=== PATIENT | male | born 1950 | race Caucasian/White ===

== ENCOUNTER 2017-02-17 08:29 | Day surgery (SDC) | payer MEDICARE, BC ==
[~2017-02-17 08:29] MED LIST: DIPHENHYDRAMINE HCL 50 MG/ML VIAL ONE; EPINEPHRINE INJ 1 MG/10 ML DISP.SYRIN ONE; FLUMAZENIL INJ 0.5 MG/5 ML VIAL IV ONE; GLUCAGON,HUMAN RECOMB 1 MG INJ ONE; NALOXONE HCL INJ/PF 0.4 MG/1 ML SDV ONE; ONDANSETRON HCL INJ/PF 4 MG/2 ML SDV ONE
[2017-02-17] MEDS: MIDAZOLAM 2 MG/2 ML INJ ONE ×2 (08:55→09:01)
[2017-02-17] MEDS: FENTANYL CITRATE INJ/PF 100 MCG/2 ML AMPUL ONE ×3 (08:57→09:03)
--- NOTE | 2017-02-17 09:21 | Operative Report ---
Operative Report DATE OF SURGERY: 02/17/17 Operative Report: The risks benefits and alternatives of the procedure explained to the patient in detail and informed consent is obtained. A GIF Olympus video scope was inserted into the patient's mouth and hypopharynx, the esophagus is identified intubated and insufflated ,the scope was then advanced through the esophagus stomach and duodenum, retroflexion maneuver is done, the esophagus stomach and first and second portions of the duodenum examined PREOPERATIVE DIAGNOSIS: Epigastric pain rule out peptic ulcer disease POSTOPERATIVE DIAGNOSIS: Hernandez's esophagus. Hiatal hernia. Gastritis status post biopsy. Duodenitis. Ablation of Hernandez's tissue OPERATION: EGD with ablation. EGD with biopsy SURGEON: CARMINA CHEN ANESTHESIA: Moderate Sedation - 4 mg of Versed, 100 mcg of fentanyl. Conscious sedation monitoring time 30 minutes. TISSUE REMOVED OR ALTERED: Gastric specimen obtained to rule out Helicobacter pylori COMPLICATIONS: None. ESTIMATED BLOOD LOSS: None. INTRAOPERATIVE FINDINGS: As noted above. PROCEDURE: Patient tolerated the procedure well. No immediate postprocedure complications are noted. Patient discharged in good condition. Discharge date February 17, 2017. Discharge diet: Regular. Discharge activity: Regular. 2-3 week follow-up to discuss findings. We will wait on biopsies. Patient is instructed to call the office or proceed to the emergency room should there be any further problems or questions.
[2017-02-17 10:32] VITALS: BP 127/76
== END 2017-02-17 10:15 | disposition home or self-care (01) ==
LOC: END 08:29
PROVIDERS: ATTEND Internal Medicine Gastroenterology
PROC: 0DB68ZX Excision of Stomach, Via Natural or Artificial Opening Endoscopic, Diagnostic (ICD-10-PCS; principal; 2017-02-17 09:00)
PROC: 0DB68ZX Excision of Stomach, Via Natural or Artificial Opening Endoscopic, Diagnostic (ICD-10-PCS; 2017-02-17 09:00)
DX: K44.9 Diaphragmatic hernia without obstruction or gangrene (principal); K29.50 Unspecified chronic gastritis without bleeding; K22.70 Barrett's esophagus without dysplasia; K29.80 Duodenitis without bleeding; I10 Essential (primary) hypertension; R73.03 Prediabetes; F17.210 Nicotine dependence, cigarettes, uncomplicated; Z79.899 Other long term (current) drug therapy; Z85.038 Personal history of other malignant neoplasm of large intestine; Z85.46 Personal history of malignant neoplasm of prostate; Z90.49 Acquired absence of other specified parts of digestive tract
CPT/HCPCS: 43270; 43239; 88305 ×2; J2250; J3010; J0171; J1200; J1610; J2310; J2405; J3490

== ENCOUNTER 2017-08-08 09:41 | Inpatient (IN) | payer MEDICARE, BC ==
[2017-08-08] MEDS ORDERED: NORMAL SALINE 1000 ML 1,000 ML IV ONE (09:59)
[2017-08-08 10:20] LABS: ABSOLUTE BASOPHILS # (AUTO) 0.1 10^3/uL (0.0-0.2); ABSOLUTE MONOCYTES (AUTO) 0.9 10^3/uL (0.1-1.4); ABSOLUTE NEUT (AUTO) 6.6 10^3/uL (1.7-8.2); BASOPHILS % (AUTO) 0.8 % (0-2); EOSINOPHILS % (AUTO) 0.4 % (0-6); LYMPHOCYTES % (AUTO) 11.6 % (13-45); MEAN CORPUSCULAR HEMOGLOBIN 27.7 pg (27.0-33.4); MEAN CORPUSCULAR HGB CONC 33.2 g/dL (32.0-36.0); MEAN CORPUSCULAR VOLUME 83 fl (80-97); MONOCYTES % (AUTO) 10.5 % (3-13); RED BLOOD COUNT 5.04 10^6/uL (4.35-5.55); RED CELL DISTRIBUTION WIDTH 14.7 % (11.5-14.0); SEGMENTED NEUTROPHILS % (AUTO) 76.7 % (42-78); WHITE BLOOD COUNT 8.6 10^3/uL (4.0-10.5)
[2017-08-08] MEDS ORDERED: ALBUTEROL SULFATE 0.083% NEB 2.5 MG/3 ML AMPUL NEB ONE (10:22)
[2017-08-08 10:24] LABS: VENOUS BLOOD BASE EXCESS 0.6 mmol/L; VENOUS BLOOD HCO3 24.6 mmol/L (20-32); VENOUS BLOOD PCO2 37.5 mmHg (35-63); VENOUS BLOOD PH 7.43 (7.30-7.42)
[2017-08-08 10:39] LABS: ALANINE AMINOTRANSFERASE 24 U/L (21-72); ALBUMIN 2.8 g/dL (3.5-5.0); ALKALINE PHOSPHATASE 102 U/L (38-126); ANION GAP 11 (5-19); ASPARTATE AMINO TRANSFERASE 16 U/L (17-59); BILIRUBIN,DIRECT 0.5 mg/dL (0.0-0.4); BILIRUBIN,TOTAL 0.8 mg/dL (0.2-1.3); BLOOD UREA NITROGEN 17 mg/dL (7-20); CALCIUM 8.8 mg/dL (8.4-10.2); CARBON DIOXIDE 24 mmol/L (22-30); CHLORIDE 104 mmol/L (98-107); CREATINE KINASE < 20 U/L (55-170); GLUCOSE 100 mg/dL (75-110); LIPASE 61.1 U/L (23-300); POTASSIUM 4.4 mmol/L (3.6-5.0); SODIUM 138.9 mmol/L (137-145); TOTAL PROTEIN 5.6 g/dL (6.3-8.2)
[2017-08-08 10:50] LABS: CREATINE KINASE MB 0.75 ng/mL (<4.55); TROPONIN I 0.016 ng/mL
--- NOTE | 2017-08-08 10:58 | RADIOLOGY REPORT (SQ) ---
EXAM DESCRIPTION: CHEST PA/LAT COMPLETED DATE/TIME: 08/08/2017 10:47 am REASON FOR STUDY: sob COMPARISON: None. EXAM PARAMETERS: NUMBER OF VIEWS: two views TECHNIQUE: Digital Frontal and Lateral radiographic views of the chest acquired. RADIATION DOSE: NA LIMITATIONS: none FINDINGS: LUNGS AND PLEURA: There is diffuse right lung airspace disease, partial collapse of the ri ght middle lobe, and trace right pleural effusion. Findings are worrisome for pneumonia. Endobronch ial lesion/hilar mass could be present, and postobstructive pneumonia may be present. Consider CT ch est with IV contrast for followup. Left lung well inflated and clear. No left pleural effusion. No right or left pneumothorax. MEDIASTINUM AND HILAR STRUCTURES: Consolidation in the right lung adjacent to the right hilum. Right hilar adenopathy or mass could be present. Left hilum unremarkable. HEART AND VASCULAR STRUCTURES: Heart normal size. No evidence for failure. BONES: No acute findings. HARDWARE: None in the chest. OTHER: No other significant finding. IMPRESSION: Right-sided diffuse airspace disease worrisome for pneumonia. Partial collapse of the r ight middle lobe. Trace right pleural effusion. Right hilar or endobronchial mass could not be excluded by plain film. Consider CT scan of the chest with IV contrast for followup. TECHNICAL DOCUMENTATION: JOB ID: [id number] [employer]- All Rights Reserved
[2017-08-08] MEDS ORDERED: LEVOFLOXACIN 750 MG/D5W RTU 750 MG/150 ML RTUPB IV ONE (11:18)
--- NOTE | 2017-08-08 11:43 | ER Document Report ---
ED General - General Chief Complaint: Shortness Of Breath Stated Complaint: SHORTNESS OF BREATH Time Seen by Provider: 08/08/17 09:50 TRAVEL OUTSIDE OF THE [place] IN LAST 30 DAYS: No - HPI Patient complains to provider of: Shortness of breath Notes: Patient coming in for local urgent care for shortness of breath. Patient states has significant history of smoking. States short of breath for the last 2 days. Patient denies any fevers chills night sweats. Patient denies any recent travel or antibiotics. Patient states he was given a dose of IM antibiotics at the local urgent care and brought to the ER. Patient states no history of her oxygen patient was found to be hypoxic upon EMS arrival with SPO2 in the lower 80s. Patient currently is on 4 L. Patient resting comfortably in no signs of any distress after my evaluation. - Related Data Allergies/Adverse Reactions: Penicillins Allergy (Unknown, Verified 08/08/17 09:45) unknown tamsulosin [From Flomax] Allergy (Unknown, Verified 08/08/17 09:45) UNKNOWN Home Medications: Current Home Medications Empagliflozin [Jardiance] 10 mg PO DAILY 08/08/17 [History] Lisinopril [Zestril] 30 mg PO DAILY 08/08/17 [History] Omeprazole 40 mg PO DAILY 08/08/17 [History] Silodosin [Rapaflo] 8 mg PO DAILY 08/08/17 [History] Past Medical History - Social History Smoking Status: Former Smoker Chew tobacco use (# tins/day): No Frequency of alcohol use: None Drug Abuse: None Family History: Reviewed & Not Pertinent Patient has suicidal ideation: No Patient has homicidal ideation: No - Past Medical History Cardiac Medical History: Reports: Hx Hypertension Denies: Hx Atrial Fibrillation, Hx Congestive Heart Failure, Hx Coronary Artery Disease, Hx Heart Attack, Hx Hypercholesterolemia, Hx Peripheral Vascular Disease, Hx Pulmonary Embolism, Hx Heart Murmur Pulmonary Medical History: Reports: Hx COPD Denies: Hx Asthma, Hx Bronchitis, Hx Pneumonia, Hx Respiratory Failure, Hx Sleep Apnea, Hx Tuberculosis Neurological Medical History: Denies: Hx Cerebrovascular Accident, Hx Seizures Endocrine Medical History: Reports: Hx Diabetes Mellitus Type 2. Denies: Hx Graves' Disease, Hx Hyperthyroidism, Hx Hypothyroidism Renal/ Medical History: Denies: Hx Benign Prostatic Hyperplasia, Hx End Stage Renal Disease, Hx Kidney Stones, Hx Peritoneal Dialysis Malignancy Medical History: Denies Hx Leukemia, Denies Hx Lung Cancer GI Medical History: Reports: Hx Gastroesophageal Reflux Disease, Hx Hiatal Hernia. Denies: Hx Crohn's Disease, Hx Irritable Bowel, Hx Liver Failure, Hx Pancreatitis, Hx Ulcer Musculoskeltal Medical History: Denies Hx Arthritis, Denies Hx Fibromyalgia, Denies Hx Multiple Sclerosis, Denies Hx Muscular Dystrophy Psychiatric Medical History: Denies: Hx Bipolar Disorder, Hx Dementia, Hx Depression, Hx Post Traumatic Stress Disorder, Hx Schizophrenia Traumatic Medical History: Denies: Hx Fractures Infectious Medical History: Denies: Hx HIV Past Surgical History: Denies: Hx Appendectomy, Hx Bowel Surgery, Hx Cholecystectomy, Hx Colostomy, Hx Coronary Artery Bypass Graft, Hx Gastric Bypass Surgery, Hx Herniorrhaphy, Hx Pacemaker, Hx Tonsillectomy - Immunizations Hx Diphtheria, Pertussis, Tetanus Vaccination: No Review of Systems - Review of Systems Constitutional: No symptoms reported EENT: No symptoms reported Cardiovascular: No symptoms reported Respiratory: Cough, Short of breath, Wheezing Gastrointestinal: No symptoms reported Genitourinary: No symptoms reported Male Genitourinary: No symptoms reported Musculoskeletal: No symptoms reported Skin: No symptoms reported Hematologic/Lymphatic: No symptoms reported Neurological/Psychological: No symptoms reported -: Yes All other systems reviewed and negative Physical Exam - Vital signs Vitals: Resp Pulse Ox 20 90 L 08/08/17 09:49 08/08/17 09:49 Interpretation: Hypoxic - General General appearance: Appears well, Alert - HEENT Head: Normocephalic, Atraumatic Eyes: Normal Pupils: PERRL - Respiratory Respiratory status: No respiratory distress Chest status: Nontender Breath sounds: Rhonchi, Wheezing Chest palpation: Normal - Cardiovascular Rhythm: Regular Heart sounds: Normal auscultation Murmur: No - Abdominal Inspection: Normal Distension: No distension Bowel sounds: Normal Tenderness: Nontender Organomegaly: No organomegaly - Back Back: Normal, Nontender - Extremities General upper extremity: Normal inspection, Nontender, Normal color, Normal ROM , Normal temperature General lower extremity: Normal inspection, Nontender, Normal color, Normal ROM , Normal temperature, Normal weight bearing. No: Kwan's sign - Neurological Neuro grossly intact: Yes Cognition: Normal Orientation: AAOx4 Charlee Coma Scale Eye Opening: Spontaneous [place] Coma Scale Verbal: Oriented Charlee Coma Scale Motor: Obeys Commands Charlee Coma Scale Total: 15 Speech: Normal Motor strength normal: LUE, RUE, LLE, RLE Sensory: Normal - Psychological Associated symptoms: Normal affect, Normal mood - Skin Skin Temperature: Warm Skin Moisture: Dry Skin Color: Normal Course - Re-evaluation Re-evalutation: 08/08/17 17:03 Patient with significant finding on chest x-ray concerning for pneumonia and possible metastatic disease. Patient was started on antibiotics. Discussed with the hospitalist agrees with a CTA at this time. Patient otherwise remained stable. I did review the CT results with the hospitalist patient tolerated and taken to the floor upon CT results released - Vital Signs Vital signs: Temp Pulse Resp BP Pulse Ox 98.2 F 95 18 153/78 H 92 08/08/17 13:44 08/08/17 16:34 08/08/17 16:34 08/08/17 13:44 08/08/17 16:34 - Laboratory Result Diagrams: 08/08/17 10:00 08/08/17 10:00 Laboratory results interpreted by me: 08/08/17 08/08/17 08/08/17 10:00 10:00 10:00 RDW 14.7 H Lymphocytes % 11.6 L VBG pH 7.43 H Direct Bilirubin 0.5 H AST 16 L Creatine Kinase < 20 L Total Protein 5.6 L Albumin 2.8 L Discharge - Discharge Clinical Impression: possible lung mass, Hypoxia, Smoking Pneumonia Qualifiers: Pneumonia type: due to unspecified organism Laterality: right Lung location: unspecified part of lung Qualified Code(s): J18.9 - Pneumonia, unspecified organism Condition: Good Disposition: ADMITTED INPATIENT Admitting Provider: Hospitalist - [facility] Admitted: [facility]
[2017-08-08] MEDS ORDERED: ALBUTEROL SULFATE 0.083% NEB 2.5 MG/3 ML AMPUL NEB PRN (12:34)
--- NOTE | 2017-08-08 13:00 | RADIOLOGY REPORT (SQ) ---
EXAM DESCRIPTION: CTA CHEST COMPLETED DATE/TIME: 08/08/2017 12:41 pm REASON FOR STUDY: sob f/u cxr tachy hypoxia COMPARISON: Two-view chest 08/08/2017 TECHNIQUE: CT scan of the chest performed using helical scanning technique with dynamic intravenous contrast injection. Images reviewed with lung, soft tissue and bone windows. Reconstructed coronal and sagittal MPR images reviewed. Additional 3 dimensional post-processing performed to develop Maximal Intensity Projection images (PR P). All images stored on PACS. All CT scanners at this facility use dose modulation, iterative reconstruction, and/or weight based d osing when appropriate to reduce radiation dose to as low as reasonably achievable (ALARA). [facility]: Dose Right [facility]: CareDose [facility]: Dose Right [facility]: Teradose 4D [facility]: MetaPack CONTRAST TYPE AND DOSE: 61 mL Isovue 370- low osmolar. Contrast bolus optimized for the pulmonary arteries. Not diagnostic for the aorta. RENAL FUNCTION: Creatinine 0.9 RADIATION DOSE: 22 mGy . LIMITATIONS: None. FINDINGS: LUNGS AND PLEURA: The right middle lobe bronchus is occluded on axial image 35, with volum e loss and consolidation throughout the right middle lobe. The right upper lobe airways are narrowed but still patent best shown on axial images 51-59. Throughout the right upper lobe and right lower lobe, there is interstitial thickening, with thickene d interlobular septa, and thick bronchial nunez, worrisome for lymphangitic tumor. Moderate right-sided pleural effusion. No acute left-sided lung parenchymal infiltrates or pleural fluid. Moderate changes of obstructive l giorgio disease at the left lung apex. No right or left pneumothorax AORTA AND GREAT VESSELS: No aneurysm. Contrast bolus not optimized for the aorta. HEART: No pericardial effusion. No significant coronary artery calcifications. PULMONARY ARTERIES: No emboli visualized in the main pulmonary arteries or the segmental branches. HILAR AND MEDIASTINAL STRUCTURES: Mediastinal adenopathy is present as follows: Precarinal 2.9 x 1.7 cm lymph node axial image 50 Left hilar 2.5 x 1.8 cm lymph node axial image 61 Left hilar 1.9 x 1.5 cm lymph node axial image 61 Left lower hilar 1.3 x 1.1 cm lymph node axial image 79 Posterior mediastinal lymph node along the tracheoesophageal groove, 1.4 x 1.4 cm axial image 100 HARDWARE: None in the chest. UPPER ABDOMEN: Just below the hemidiaphragm, a 2.5 x 1.6 cm celiac lymph node is present on axial teresa ge 111 THYROID AND OTHER SOFT TISSUES: No masses. No adenopathy. BONES: No acute or significant finding. 3D MIPS: Confirm above findings. OTHER: No other significant finding. IMPRESSION: Findings worrisome for lung cancer with postobstructive pneumonia in the right middle lo be, lymphangitis spread of tumor along the right hilum, and malignant mediastinal and upper abdominal adenopathy No CT angio evidence of acute pulmonary emboli or thoracic aortic dissection. COMMENT: Quality ID # [id number]: Final reports with documentation of one or more dose reduction techniques (e.g., Automated exposure control, adjustment of the mA and/or kV according to patient size, use of iterative reconstruction technique) TECHNICAL DOCUMENTATION: JOB ID: [id number] [employer]- All Rights Reserved
[2017-08-08 17:37] LABS: PROTHROMBIN TIME 15.3 SEC (11.4-15.4)
[2017-08-08 17:38] LABS: PARTIAL THROMBOPLASTIN TIME 32.2 SEC (23.5-35.8)
[2017-08-08 17:39] LABS: TOTAL PROTEIN 5.4 g/dL (6.3-8.2)
[2017-08-08] MEDS: LANSOPRAZOLE 30 MG TAB.RAP.DR PO SCH (18:48)
--- NOTE | 2017-08-08 19:18 | PDOC H&P ---
History of Present Illness Admission Date/PCP: 08/08/17 11:56 JULITO MCNEILL MD Patient complains of: Cough History of Present Illness: PAULINE SMITH is a 67 year old male presenting to the ED with a 3 week history of cough. Patient sates that the it is productive of clear sputum. 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 Patient states that he would take a break and then get back to what he was doing. Patients states that he has been smoking for many years, greater than 40, but has recently quite. Patient states he has not been eating well because food does taste good anymore. Patient states he lost about 10 labs. Patient also reports necrotic wound on his left thigh and back for which he is being seen at the wound clinic. It was suggest that patient have an autoimmune work up for this wounds. In the ED patient was found to be hypoxic in the 80s. Chest XR concerning for right sided pneumonia. CT scan chest was even moreso concerning findings worrisome for lung cancer and postobstructive pneumonia in the right middle lobe , lumphagitic spread of tumor along the right hilum, and malignant mediastinal and upper abdominal adenopathy. There is also bilateral nodularity and enlargement of the adrenal glands worrisome for metastatic disease. Past Medical History Cardiac Medical History: Reports: Hypertension Denies: Atrial Fibrillation, Congestive Heart Failure, Coronary Artery Disease, Myocardial Infarction, Hyperlipidema, Peripheral Vascular Disease, Pulmonary Embolism, Heart Murmur Pulmonary Medical History: Reports: Chronic Obstructive Pulmonary Disease (COPD) Denies: Asthma, Bronchitis, Pneumonia, Respiratory Failure, Sleep Apnea, Tuberculosis Neurological Medical History: Denies: Seizures Endocrine Medical History: Reports: Diabetes Mellitus Type 2 Denies: Hyperthyroidism, Hypothyroidism Renal/ Medical History: Denies: End Stage Renal Disease Malignancy Medical History: Reports: Other - 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 Denies: Breast Cancer, Cervical Cancer, Leukemia, Lung Cancer, Ovarian Cancer GI Medical History: Reports: Gastroesophageal Reflux Disease, Hiatal Hernia, Other Denies: Crohn's Disease Musculoskeltal Medical History: Denies: Arthritis, Fibromyalgia Psychiatric Medical History: Denies: Bipolar Disorder, Dementia, Depression, Post Traumatic Stress Disorder Hematology: Denies: Anemia, Hemophilia, Sickle Cell Disease Infectious Medical History: Denies: HIV Past Surgical History Past Surgical History: Reports: Other - SBO in 2011 positive for maliganancy Denies: Appendectomy, Cholecystectomy, Colostomy, Coronary Artery Bypass Graft, Gastric Bypass Surgery, Herniorrhaphy, Pacemaker, Tonsillectomy Social History Smoking Status: Former Smoker Cigarettes Packs Per Day: 1 Number of Years Smokin Last Time Smoked: last week Frequency of Alcohol Use: Occasional Hx Recreational Drug Use: No Drugs: None Hx Prescription Drug Abuse: Yes - HCTZ Family History Family History: Other - Father lymphoma Parental Family History Reviewed: Yes Children Family History Reviewed: No Sibling(s) Family History Reviewed.: No Medication/Allergy Home Medications: Empagliflozin [Jardiance] 10 mg PO DAILY 08/08/17 Lisinopril [Zestril] 30 mg PO DAILY 08/08/17 Multivit-Min/FA/Lycopen/Lutein [Centrum Silver Men Tablet] 1 each PO DAILY 08/08 Omeprazole 40 mg PO DAILY 08/08/17 Silodosin [Rapaflo] 8 mg PO DAILY 08/08/17 Allergies/Adverse Reactions: Penicillins Allergy (Unknown, Verified 08/08/17 09:45) unknown tamsulosin [From Flomax] Allergy (Unknown, Verified 08/08/17 09:45) UNKNOWN Physical Exam Vital Signs: Temp Pulse Resp BP Pulse Ox 98.2 F 95 21 H 142/69 H 94 08/08/17 16:44 08/08/17 16:44 08/08/17 16:44 08/08/17 16:44 08/08/17 16:44 Intake & Output 08/07/17 08/08/17 08/09/17 06:59 06:59 06:59 Intake Total 720 Balance 720 Weight 149 kg General appearance: PRESENT: no acute distress, well-developed, well-nourished Head exam: PRESENT: normocephalic Eye exam: PRESENT: EOMI. ABSENT: scleral icterus Ear exam: PRESENT: normal external ear exam Mouth exam: PRESENT: moist Neck exam: ABSENT: carotid bruit, JVD, lymphadenopathy, thyromegaly Respiratory exam: PRESENT: other - no breathe sound at right lung base. ABSENT : rales, rhonchi, wheezes Cardiovascular exam: PRESENT: RRR. ABSENT: diastolic murmur, rubs, systolic murmur Pulses: PRESENT: normal dorsalis pedis pul Vascular exam: PRESENT: normal capillary refill GI/Abdominal exam: PRESENT: normal bowel sounds, soft. ABSENT: distended, guarding, mass, organolmegaly, rebound, tenderness Rectal exam: PRESENT: deferred Extremities exam: PRESENT: full ROM. ABSENT: calf tenderness, clubbing, pedal edema Neurological exam: PRESENT: alert, awake, oriented to person, oriented to place , oriented to time, oriented to situation, CN II-XII grossly intact. ABSENT: motor sensory deficit Psychiatric exam: PRESENT: appropriate affect, normal mood. ABSENT: homicidal ideation, suicidal ideation Skin exam: PRESENT: dry, intact, warm, other - wound on back and left thigh. ABSENT: cyanosis, rash Results Laboratory Results: 08/08/17 17:07 08/08/17 17:07 Glucose 162 H Total Protein 5.4 L Impressions: Chest X-Ray 08/08/17 09:59 IMPRESSION: Right-sided diffuse airspace disease worrisome for pneumonia. Partial collapse of the right middle lobe. Trace right pleural effusion. Right hilar or endobronchial mass could not be excluded by plain film. Consider CT scan of the chest with IV contrast for followup. Chest/Abdomen CTA 08/08/17 11:41 IMPRESSION: Findings worrisome for lung cancer with postobstructive pneumonia in the right middle lobe, lymphangitis spread of tumor along the right hilum, and malignant mediastinal and upper abdominal adenopathy No CT angio evidence of acute pulmonary emboli or thoracic aortic dissection. Assessment & Plan - Diagnosis (1) Pneumonia Qualifiers: Pneumonia type: due to unspecified organism Laterality: right Lung location: unspecified part of lung Qualified Code(s): J18.9 - Pneumonia, unspecified organism Plan: Post obstructive do to possible lung mass. Patient on levaquin. (2) Hypertension Qualifiers: Hypertension type: essential hypertension Qualified Code(s): I10 - Essential (primary) hypertension Is this a current diagnosis for this admission?: Yes Plan: Conitnue home medications. Currently stable. (3) Hypoxia Is this a current diagnosis for this admission?: Yes Plan: Possible due to right lung pneumonia and other etiology affecting the lungs. Continue supplemental oxygen. Patient may need to be discharged home on oxygen. (4) Smoking Plan: Patient recently quite. (5) Abnormal CT scan, chest Plan: CT scan finding concerning for metastatic lung disease. Mass is not amenable to CT guided biopsy. Discussed with Dr. Myers who is attempting to arrange for a bronchoscopy and biopsy. Discussed with Dr. Peralta who recommend thoracentesis with cytology if we are not able to get bronch and arrange for a bronch as an outpatient instead. Coags ordered along with thoracentesis in the am. SCD for DVT prophylaxis. - Time Time Spent: 30 to 50 Minutes Anticipated discharge: Home - Inpatient Certification Medical Necessity: Need for Surgery
--- NOTE | 2017-08-08 21:11 | EKG REPORT ---
SEVERITY:- ABNORMAL ECG - SINUS TACHYCARDIA PROBABLE LEFT ATRIAL ABNORMALITY CONSIDER RIGHT VENTRICULAR HYPERTROPHY BORDERLINE PROLONGED QT INTERVAL : Confirmed by: Winsome Bey MD 08-Aug-2017 21:10:03
[2017-08-09] MEDS: LANSOPRAZOLE 30 MG TAB.RAP.DR PO SCH ×2 (05:16→16:36)
--- NOTE | 2017-08-09 08:37 | PDOC CONSULTATION ---
Consultation Consult Date: 08/09/17 Attending physician:: JENNA NOGUEIRA Consult reason:: Newly noted right lung lesion, pleural effusion, mediastinal adenopathy concern of lung cancer History of Present Illness Admission Date/PCP: 08/08/17 11:56 JULITO MCNEILL MD Patient complains of: Shortness of breath, weakness, weight loss History of Present Illness: 67-year-old male with known heavy smoking history greater than 40 pack history of tobacco, presents with increasing shortness of breath, it has been increasing over the last 3-6 months but acutely worsened over the last 1-2 weeks , ultimately he presented to his PCP who noted his O2 sat at room air was only 84% and sent him to the ED, there in the ED he had CTA of the chest, this did not show any PE but it did indicate a right hilar mass with a large right pleural effusion, mediastinal adenopathy, and concern of adrenal lesions as well. Of note he has had about a 5-10 pound weight loss over the last 1-2 months. He is not having any hemoptysis. He is not having any pain anywhere. Past Medical History Cardiac Medical History: Reports: Hypertension Denies: Atrial Fibrillation, Congestive Heart Failure, Coronary Artery Disease, Myocardial Infarction, Hyperlipidema, Peripheral Vascular Disease, Pulmonary Embolism, Heart Murmur Pulmonary Medical History: Reports: Chronic Obstructive Pulmonary Disease (COPD) Denies: Asthma, Bronchitis, Pneumonia, Respiratory Failure, Sleep Apnea, Tuberculosis Neurological Medical History: Denies: Seizures Endocrine Medical History: Reports: Diabetes Mellitus Type 2 Denies: Hyperthyroidism, Hypothyroidism Renal/ Medical History: Denies: End Stage Renal Disease Malignancy Medical History: Reports: Other - prostate cancer 2012 treated with radioative seeds in [place] Denies: Breast Cancer, Cervical Cancer, Leukemia, Lung Cancer, Ovarian Cancer GI Medical History: Reports: Gastroesophageal Reflux Disease, Hiatal Hernia, Other Denies: Crohn's Disease Musculoskeltal Medical History: Denies: Arthritis, Fibromyalgia Psychiatric Medical History: Denies: Bipolar Disorder, Dementia, Depression, Post Traumatic Stress Disorder Hematology: Denies: Anemia, Hemophilia, Sickle Cell Disease Infectious Medical History: Denies: HIV Past Surgical History Past Surgical History: Reports: Other - Colectomy because of large polyps, 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 Denies: Appendectomy, Cholecystectomy, Colostomy, Coronary Artery Bypass Graft, Gastric Bypass Surgery, Herniorrhaphy, Pacemaker, Tonsillectomy Social History Information Source: Patient Smoking Status: Former Smoker Cigarettes Packs Per Day: 1 Number of Years Smokin Last Time Smoked: last week Frequency of Alcohol Use: Occasional Hx Recreational Drug Use: No Drugs: None Hx Prescription Drug Abuse: Yes - HCTZ - Advance Directive Resuscitation Status: Full Code Family History Family History: Other - Father lymphoma Parental Family History Reviewed: Yes Children Family History Reviewed: Yes Sibling(s) Family History Reviewed.: Yes Medication/Allergy Home Medications: Empagliflozin [Jardiance] 10 mg PO DAILY 08/08/17 Lisinopril [Zestril] 30 mg PO DAILY 08/08/17 Multivit-Min/FA/Lycopen/Lutein [Centrum Silver Men Tablet] 1 each PO DAILY 08/08 Omeprazole 40 mg PO DAILY 08/08/17 Silodosin [Rapaflo] 8 mg PO DAILY 08/08/17 Allergies/Adverse Reactions: Penicillins Allergy (Unknown, Verified 08/08/17 09:45) unknown tamsulosin [From Flomax] Allergy (Unknown, Verified 08/08/17 09:45) UNKNOWN Review of Systems Constitutional: ABSENT: chills, fever(s), headache(s), weight gain, weight loss Eyes: ABSENT: visual disturbances Ears: ABSENT: hearing changes Cardiovascular: ABSENT: chest pain, dyspnea on exertion, edema, orthropnea, palpitations Respiratory: ABSENT: cough, hemoptysis Gastrointestinal: ABSENT: abdominal pain, constipation, diarrhea, hematemesis, hematochezia, nausea, vomiting Genitourinary: ABSENT: dysuria, hematuria Musculoskeletal: ABSENT: joint swelling Integumentary: ABSENT: rash, wounds Neurological: ABSENT: abnormal gait, abnormal speech, confusion, dizziness, focal weakness, syncope Psychiatric: ABSENT: anxiety, depression, homidical ideation, suicidal ideation Endocrine: ABSENT: cold intolerance, heat intolerance, polydipsia, polyuria Hematologic/Lymphatic: ABSENT: easy bleeding, easy bruising Physical Exam Vital Signs: Temp Pulse Resp BP Pulse Ox 98.0 F 95 20 119/47 L 93 08/09/17 07:13 08/09/17 07:13 08/09/17 07:13 08/09/17 07:13 08/09/17 07:13 Intake & Output 08/08/17 08/09/1708/10/17 06:59 06:59 06:59 Intake Total 2806 Output Total 1 Balance 2805 Weight 150 kg General appearance: PRESENT: no acute distress, well-developed, well-nourished Head exam: PRESENT: atraumatic, normocephalic Eye exam: PRESENT: conjunctiva pink, EOMI, PERRLA. ABSENT: scleral icterus Ear exam: PRESENT: normal external ear exam Mouth exam: PRESENT: moist, tongue midline Neck exam: ABSENT: carotid bruit, JVD, lymphadenopathy, thyromegaly Respiratory exam: PRESENT: clear to auscultation campos. ABSENT: rales, rhonchi, wheezes Cardiovascular exam: PRESENT: RRR. ABSENT: diastolic murmur, rubs, systolic murmur Pulses: PRESENT: normal dorsalis pedis pul Vascular exam: PRESENT: normal capillary refill GI/Abdominal exam: PRESENT: normal bowel sounds, soft. ABSENT: distended, guarding, mass, organolmegaly, rebound, tenderness Rectal exam: PRESENT: deferred Extremities exam: PRESENT: full ROM. ABSENT: calf tenderness, clubbing, pedal edema Neurological exam: PRESENT: alert, awake, oriented to person, oriented to place , oriented to time, oriented to situation, CN II-XII grossly intact. ABSENT: motor sensory deficit Psychiatric exam: PRESENT: appropriate affect, normal mood. ABSENT: homicidal ideation, suicidal ideation Skin exam: PRESENT: dry, intact, warm. ABSENT: cyanosis, rash Results Laboratory Results: 08/08/17 17:07 08/08/17 17:07 Glucose 162 H Total Protein 5.4 L Impressions: Chest X-Ray 08/08/17 09:59 IMPRESSION: Right-sided diffuse airspace disease worrisome for pneumonia. Partial collapse of the right middle lobe. Trace right pleural effusion. Right hilar or endobronchial mass could not be excluded by plain film. Consider CT scan of the chest with IV contrast for followup. Chest/Abdomen CTA 08/08/17 11:41 IMPRESSION: Findings worrisome for lung cancer with postobstructive pneumonia in the right middle lobe, lymphangitis spread of tumor along the right hilum, and malignant mediastinal and upper abdominal adenopathy No CT angio evidence of acute pulmonary emboli or thoracic aortic dissection. Status: Image reviewed by me - Reviewed images with patient Assessment & Plan - Diagnosis (1) Mass of right lung Is this a current diagnosis for this admission?: Yes Plan: Picture concerning for primary lung cancer, plan for thoracentesis today, Dr. Myers has been consulted but unsure if he will be able to do bronchoscopy with holiday looming, if patient is doing better post thoracentesis and is able to come down on O2, he can be discharged and follow-up in our office and will set up bronchoscopy as an outpatient. (2) Pneumonia Qualifiers: Pneumonia type: due to unspecified organism Laterality: right Lung location: unspecified part of lung Qualified Code(s): J18.9 - Pneumonia, unspecified organism Plan: Probably does have a postobstructive pneumonia ongoing as well, continue with antibiotics per hospitalist team he will need antibiotics on discharge as well. (3) Pleural effusion Is this a current diagnosis for this admission?: Yes Plan: Possibly malignant, we will get fluid studies as well as cytology, will follow that up - Time Time Spent: Greater than 70 Minutes Critical Time spent with patient: 35 or more minutes - Inpatient Certification Based on my medical assessment, after consideration of the patient's comorbidities, presenting symptoms, or acuity I expect that the services needed warrant INPATIENT care.: Yes I certify that my determination is in accordance with my understanding of Medicare's requirements for reasonable and necessary INPATIENT services [42 CFR 412.3e].: Yes Medical Necessity: Need for Nebulizer Therapy and Monitoring of Response, Need for IV Antibiotics, Need for Surgery
[2017-08-09] MEDS ORDERED: LEVOFLOXACIN 750 MG/D5W RTU 750 MG/150 ML RTUPB IV SCH (10:00)
--- NOTE | 2017-08-09 10:09 | RADIOLOGY REPORT (SQ) ---
EXAM DESCRIPTION: CHEST SINGLE VIEW COMPLETED DATE/TIME: 08/09/2017 9:52 am REASON FOR STUDY: S/P RT THORACENTESIS COMPARISON: Two-view chest 08/08/2017, CT chest 08/08/2017 EXAM PARAMETERS: NUMBER OF VIEWS: One view. TECHNIQUE: Single frontal radiographic view of the chest acquired. RADIATION DOSE: NA LIMITATIONS: None. FINDINGS: LUNGS AND PLEURA: Post right thoracentesis with removal of 800 mL of fluid. No right-side d pneumothorax. Again, abnormally increased interstitial markings are present throughout the right upper lobe, with c ollapse of the right middle lobe. No left focal infiltrates, or left pleural effusion. MEDIASTINUM AND HILAR STRUCTURES: Abnormal enlarged right hilum HEART AND VASCULAR STRUCTURES: Heart normal in size. Normal vasculature. BONES: No acute findings. HARDWARE: None in the chest. OTHER: No other significant finding. IMPRESSION: No pneumothorax immediately post right thoracentesis TECHNICAL DOCUMENTATION: JOB ID: [id number] [employer]- All Rights Reserved
--- NOTE | 2017-08-09 10:12 | RADIOLOGY REPORT (SQ) ---
EXAM DESCRIPTION: U/S THORACENTESIS WITH IMAGING COMPLETED DATE/TIME: 08/09/2017 9:39 am REASON FOR STUDY: r pleural effusion COMPARISON: CT chest 08/08/2017 LIMITATIONS: None. PROCEDURE: Procedure, risks, benefit, and alternative explained to patient who then gave written con sent. The posterior right chest wall was marked using ultrasound guidance. A time-out was called fo r correct marking verification. Chest prepped and draped using sterile technique. Local anesthesia a chieved using 3.5 ml of 1% lidocaine injection. A 5fr needle/catheter set was introduced into the po sterior right pleural space. Fluid was aspirated. The catheter was removed and the entry site was c overed with sterile bandage. No immediate complications noted. 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 Images acquired during the procedure were stored on PACS. FINDINGS: ENTRY SITE: Posterior right chest FLUID VOLUME: 800 mL FLUID ANALYSIS: Clear yellow fluid OTHER: Fluid sent for cytology and other testing IMPRESSION: SUCCESSFUL THORACENTESIS USING ULTRASOUND GUIDANCE. COMMENT: Patient medication list reviewed: Yes- Quality ID# [id number]:Eligible professional attests to doc umenting in the medical record they obtained, updated, or reviewed the patient's current medications. Quality ID #[id number]: Final reports for procedures using fluoroscopy that document radiation exposure lashell monica, or exposure time and number of fluorographic images (if radiation exposure indices are not avail able) TECHNICAL DOCUMENTATION: JOB ID: [id number] [employer]- All Rights Reserved
[2017-08-09 10:23] LABS: STAIN REACTIVITY CHECK ACCEPTABLE
[2017-08-09 10:24] LABS: FLUID APPEARANCE HAZY; FLUID TYPE PLEURAL
[2017-08-09 10:38] LABS: FLUID RBC DILUENT USED NONE USED; FLUID RBC DILUTION FACTOR 1; FLUID RBC SIDE 1 118; FLUID RBC SIDE 2 106; TOTAL RBC SQUARES COUNTED FLD 50
[2017-08-09] MEDS: NICOTINE 21 MG/24 HR PATCH.TD24 TD SCH (10:44)
--- NOTE | 2017-08-09 11:34 | PDOC CONSULTATION ---
Consultation Consult Date: 08/08/17 Attending physician:: JENNA NOGUEIRA Consult reason:: abnormal CT scan of chest r pleural effusion;bilateral lung masses History of Present Illness Admission Date/PCP: 08/08/17 11:56 JULITO MCNEILL MD History of Present Illness: PAULINE SMITH is a 67 year old male complains of increasing shortness of breath over the last several days difficulty swallowing because he keeps coughing states cough is usually productive of clear phlegm and he denies any hemoptysis but his PPD status is unknown. He has had no history of chronic lung disease as a child or adolescent he does admit to some dyspnea on exertion and wheezing which is increased somewhat over the last several weeks. He is mistakes strong exposure to passive smoke as a child as well as an adult he himself is smoked 1/2-2 packs a day for 56 years but is currently down to half a pack per day. He is had many jobs but is unaware of being exposed to any particular respiratory toxins other than dirt dust. He has no pets. He recently spent a week in [place]. He admits to some tightness in his chest sleeps on 2 pillows admits to PND nocturnal cough and occasional edema. he is admits to snoring restless sleep nocturia 0-2 times per night unrestful sleep and daytime somnolence.He is noted on CT scan to have a large right pleural effusion collapse of his right middle lobe with a suspected endobronchial lesion he also has a extreme narrowing of the distal left main also indicative of some extrinsic compression in that area Past Medical History Cardiac Medical History: Reports: Hypertension Denies: Atrial Fibrillation, Congestive Heart Failure, Coronary Artery Disease, Myocardial Infarction, Hyperlipidema, Peripheral Vascular Disease, Pulmonary Embolism, Heart Murmur Pulmonary Medical History: Reports: Chronic Obstructive Pulmonary Disease (COPD) Denies: Asthma, Bronchitis, Pneumonia, Respiratory Failure, Sleep Apnea, Tuberculosis Neurological Medical History: Denies: Seizures Endocrine Medical History: Reports: Diabetes Mellitus Type 2 Denies: Hyperthyroidism, Hypothyroidism Renal/ Medical History: Denies: End Stage Renal Disease Malignancy Medical History: Denies: Breast Cancer, Cervical Cancer, Leukemia, Lung Cancer, Ovarian Cancer GI Medical History: Reports: Gastroesophageal Reflux Disease, Hiatal Hernia Denies: Crohn's Disease Musculoskeltal Medical History: Denies: Arthritis, Fibromyalgia Psychiatric Medical History: Denies: Bipolar Disorder, Dementia, Depression, Post Traumatic Stress Disorder Hematology: Denies: Anemia, Hemophilia, Sickle Cell Disease Infectious Medical History: Denies: HIV Past Surgical History Past Surgical History: Denies: Appendectomy, Cholecystectomy, Colostomy, Coronary Artery Bypass Graft, Gastric Bypass Surgery, Herniorrhaphy, Pacemaker, Tonsillectomy Social History Information Source: Patient, [facility] Records 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 Lives with: Family Smoking Status: Current Every Day Smoker Number of Years Smokin Passive smoke exposure as: Both Hx Recreational Drug Use: No Drugs: None Hx Prescription Drug Abuse: Yes - HCTZ Do you have pets?: No Have you been exposed to any sick contacts recently?: No Have you had any recent respiratory illnesses?: No Have you travelled outside of [place] in the past 12 months?: Yes Family History Family History: Hypertension, Malignancy Parental Family History Reviewed: Yes Children Family History Reviewed: Yes Sibling(s) Family History Reviewed.: Yes Medication/Allergy Home Medications: Empagliflozin [Jardiance] 10 mg PO DAILY 08/08/17 Lisinopril [Zestril] 30 mg PO DAILY 08/08/17 Multivit-Min/FA/Lycopen/Lutein [Centrum Silver Men Tablet] 1 each PO DAILY 08/08 Omeprazole 40 mg PO DAILY 08/08/17 Silodosin [Rapaflo] 8 mg PO DAILY 08/08/17 Allergies/Adverse Reactions: Penicillins Allergy (Unknown, Verified 08/08/17 09:45) unknown tamsulosin [From Flomax] Allergy (Unknown, Verified 08/08/17 09:45) UNKNOWN Review of Systems Constitutional: PRESENT: anorexia, fatigue, weakness, weight loss. ABSENT: chills, fever(s), night sweats, weight gain Eyes: ABSENT: visual disturbances Ears: ABSENT: hearing changes Nose, Mouth, and Throat: ABSENT: mouth pain, sore throat Respiratory: PRESENT: cough, dyspnea, sputum. ABSENT: hemoptysis Gastrointestinal: PRESENT: dysphagia. ABSENT: abdominal pain, bloating, coffee ground emesis, constipation, diarrhea, heartburn, hematemesis, hematochezia, melena, nausea, vomiting Genitourinary: PRESENT: difficulty urinating, nocturia, other - History of prostate cancer. ABSENT: dysuria, hematuria Musculoskeletal: ABSENT: back pain, deformity, joint swelling Integumentary: ABSENT: diaphoresis, erythema, lesions, pruritus, rash Neurological: PRESENT: paresthesias, weakness. ABSENT: abnormal gait, abnormal movements, abnormal speech, confusion, convulsions, dizziness, focal weakness, frequent falls, lack of coordination, memory loss, syncope, tingling, tremor(s) Psychiatric: ABSENT: hallucinations, homidical ideation, suicidal ideation Endocrine: ABSENT: cold intolerance, heat intolerance, menstrual abnormalities, polydipsia, polyuria Hematologic/Lymphatic: PRESENT: easy bleeding, easy bruising, lymphadenopathy Physical Exam Vital Signs: Temp Pulse Resp BP Pulse Ox 98.2 F 119 H 18 153/78 H 93 08/08/17 13:44 08/08/17 13:44 08/08/17 13:44 08/08/17 13:44 08/08/17 13:44 Intake & Output 08/07/17 08/08/17 08/09/17 06:59 06:59 06:59 Weight 149 kg General appearance: PRESENT: no acute distress, cooperative, disheveled, thin, well-developed Head exam: PRESENT: atraumatic, normocephalic Eye exam: PRESENT: conjunctiva pale, EOMI Mouth exam: PRESENT: dry mucosa, neck supple, tongue midline Teeth exam: PRESENT: poor dentation Neck exam: ABSENT: carotid bruit, JVD, lymphadenopathy, thyromegaly Respiratory exam: PRESENT: decreased breath sounds, prolonged expiratory phas, rhonchi, symmetrical, unlabored, wheezes. ABSENT: accessory muscle use, chest wall tenderness, clear to auscultation campos, crackles, rales, retraction, stridor , tachypnea Cardiovascular exam: PRESENT: RRR, +S1, +S2. ABSENT: irregular rhythm Pulses: PRESENT: normal radial pulses GI/Abdominal exam: PRESENT: normal bowel sounds, soft. ABSENT: distended, guarding, mass, organolmegaly, rebound, tenderness Extremities exam: ABSENT: calf tenderness, clubbing, joint swelling, pedal edema , tenderness Musculoskeletal exam: ABSENT: deformity, dislocation, tenderness Neurological exam: PRESENT: alert, awake Psychiatric exam: PRESENT: normal mood Skin exam: PRESENT: dry, pallor, warm Results Impressions: Chest X-Ray 08/08/17 09:59 IMPRESSION: Right-sided diffuse airspace disease worrisome for pneumonia. Partial collapse of the right middle lobe. Trace right pleural effusion. Right hilar or endobronchial mass could not be excluded by plain film. Consider CT scan of the chest with IV contrast for followup. Chest/Abdomen CTA 08/08/17 11:41 IMPRESSION: Findings worrisome for lung cancer with postobstructive pneumonia in the right middle lobe, lymphangitis spread of tumor along the right hilum, and malignant mediastinal and upper abdominal adenopathy No CT angio evidence of acute pulmonary emboli or thoracic aortic dissection. Assessment & Plan - Diagnosis (1) Abnormal CT scan, chest Is this a current diagnosis for this admission?: Yes Plan: Collapsed right middle lobe narrowing of the distal left mainstem bronchus moderate right-sided pleural effusion (2) Mass of right lung Is this a current diagnosis for this admission?: Yes Plan: Patient is amenable fiberoptic bronchoscopy which I am trying to set up for Monday, 11 August however the patient insisted that he would like to go home and return for outpatient procedure (3) Pleural effusion Is this a current diagnosis for this admission?: Yes Plan: Thoracentesis With cytology (4) Smoking Is this a current diagnosis for this admission?: Yes Plan: Stop smoking consider transdermal nicotine
--- NOTE | 2017-08-09 11:36 | PDOC PROGRESS REPORT ---
Subjective Progress Note for:: 08/09/17 - Lung mass Subjective:: Status post thoracentesis Physical Exam Vital Signs: Temp Pulse Resp BP Pulse Ox 98.0 F 95 20 119/47 L 93 08/09/17 07:13 08/09/17 07:13 08/09/17 07:13 08/09/17 07:13 08/09/17 07:13 Intake & Output 08/08/17 08/09/17 08/10/17 06:59 06:59 06:59 Intake Total 2806 Output Total 1 Balance 2805 Weight 150 kg General appearance: PRESENT: no acute distress, cooperative, disheveled, thin, well-developed Head exam: PRESENT: atraumatic, normocephalic Eye exam: PRESENT: conjunctiva pale, EOMI Mouth exam: PRESENT: dry mucosa, neck supple Teeth exam: PRESENT: poor dentation Neck exam: ABSENT: carotid bruit, JVD, lymphadenopathy, thyromegaly Respiratory exam: PRESENT: decreased breath sounds, prolonged expiratory phas, rhonchi, symmetrical, unlabored. ABSENT: accessory muscle use, chest wall tenderness, clear to auscultation campos, crackles, rales, retraction, stridor, tachypnea Cardiovascular exam: PRESENT: RRR, +S1, +S2. ABSENT: irregular rhythm Pulses: PRESENT: normal radial pulses GI/Abdominal exam: PRESENT: ascites Extremities exam: PRESENT: calf tenderness, clubbing, pedal edema. ABSENT: joint swelling Musculoskeletal exam: ABSENT: deformity, dislocation Neurological exam: PRESENT: alert, awake Psychiatric exam: PRESENT: normal mood Skin exam: PRESENT: dry, pallor, warm Results Laboratory Results: 08/08/17 17:07 08/08/17 08/09/17 17:07 09:26 Glucose 162 H Total Protein 5.4 L Fluid Type PLEURAL Fluid Source LUNG Fluid Color YELLOW Fluid Appearance HAZY Fluid Viscosity LIQUID Fluid WBC 299 Fluid RBC 560 08/09/17 04:06 Sputum Gram Stain - Final 08/09/17 04:06 Sputum Sputum Culture - Final Impressions: Chest/Abdomen CTA 08/08/17 11:41 IMPRESSION: Findings worrisome for lung cancer with postobstructive pneumonia in the right middle lobe, lymphangitis spread of tumor along the right hilum, and malignant mediastinal and upper abdominal adenopathy No CT angio evidence of acute pulmonary emboli or thoracic aortic dissection. Chest X-Ray 08/09/17 00:00 IMPRESSION: No pneumothorax immediately post right thoracentesis Thoracentesis Ultrasound 08/09/17 16:14 IMPRESSION: SUCCESSFUL THORACENTESIS USING ULTRASOUND GUIDANCE. Assessment & Plan - Diagnosis (1) Abnormal CT scan, chest Is this a current diagnosis for this admission?: Yes Plan: Collapsed right middle lobe narrowing of the distal left mainstem bronchus moderate right-sided pleural effusion (2) Mass of right lung Is this a current diagnosis for this admission?: Yes Plan: Awaiting word from endoscopy (3) Pleural effusion Is this a current diagnosis for this admission?: Yes Plan: Status post thoracentesis awaiting cytology (4) Smoking Is this a current diagnosis for this admission?: Yes
--- NOTE | 2017-08-09 12:39 | RADIOLOGY REPORT (SQ) ---
EXAM DESCRIPTION: CHEST SINGLE VIEW COMPLETED DATE/TIME: 08/09/2017 11:58 am REASON FOR STUDY: 2 HOURS S/P RT THORACENTESIS COMPARISON: AP chest 08/09/2017, 08/08/2017 EXAM PARAMETERS: NUMBER OF VIEWS: One view. TECHNIQUE: Single frontal radiographic view of the chest acquired. RADIATION DOSE: NA LIMITATIONS: None. FINDINGS: LUNGS AND PLEURA: No pneumothorax 2 hours post right-sided thoracentesis. Persistent right middle lobe collapse and consolidation, persistent alveolar and interstitial infiltr ate in the right upper lobe. Left lung clear. No left pleural effusion. No left pneumothorax. MEDIASTINUM AND HILAR STRUCTURES: Enlarged right hilum HEART AND VASCULAR STRUCTURES: Heart normal in size. Normal vasculature. BONES: No acute findings. HARDWARE: None in the chest. OTHER: No other significant finding. IMPRESSION: No pneumothorax 2 hours post right-sided thoracentesis TECHNICAL DOCUMENTATION: JOB ID: [id number] [employer]- All Rights Reserved
[2017-08-10] MEDS: LANSOPRAZOLE 30 MG TAB.RAP.DR PO SCH (05:31)
[2017-08-10] MEDS ORDERED: LEVOFLOXACIN 750 MG TABLET PO ONE (08:57)
[2017-08-10] MEDS: NICOTINE 21 MG/24 HR PATCH.TD24 TD SCH (09:34)
[2017-08-10 09:51] VITALS: BP 153/78
[2017-08-10 11:40] LABS: AMYLASE BODY FLUID 36 U/L (.)
--- NOTE | 2017-08-10 15:48 | PDOC PROGRESS REPORT ---
Subjective Progress Note for:: 08/09/17 Subjective:: Patient is a 67-year-old male who had several weeks of persistent cough now found to have obstructive pneumonia and abnormal CT of chest concerning for malignancy with metastasis. Patient states he is doing well. Patient is status post thoracentesis. Patient is looking forward to going home. Patient states he will have his bronched done as outpatient. Physical Exam Vital Signs: Temp Pulse Resp BP Pulse Ox 98.5 F 97 22 H 140/61 H 90 L 08/09/17 19:45 08/09/17 19:45 08/09/17 19:45 08/09/17 19:45 08/09/17 19:45 Intake & Output 08/08/17 08/09/17 08/10/17 06:59 06:59 06:59 Intake Total 2806 927 Output Total 1 Balance 2805 927 Weight 150 kg 66.2 kg General appearance: PRESENT: no acute distress, thin Head exam: PRESENT: normocephalic Eye exam: PRESENT: EOMI. ABSENT: scleral icterus Mouth exam: PRESENT: moist Neck exam: ABSENT: carotid bruit, JVD, lymphadenopathy, thyromegaly Respiratory exam: PRESENT: decreased breath sounds - At right lung base.. ABSENT: rales, rhonchi, wheezes Cardiovascular exam: PRESENT: RRR. ABSENT: diastolic murmur, rubs, systolic murmur Pulses: PRESENT: normal dorsalis pedis pul Vascular exam: PRESENT: normal capillary refill GI/Abdominal exam: PRESENT: normal bowel sounds, soft. ABSENT: distended, guarding, mass, organolmegaly, rebound, tenderness Rectal exam: PRESENT: deferred Extremities exam: PRESENT: full ROM. ABSENT: calf tenderness, clubbing, pedal edema Neurological exam: PRESENT: alert, awake, oriented to person, oriented to place , oriented to time, oriented to situation, CN II-XII grossly intact. ABSENT: motor sensory deficit Psychiatric exam: PRESENT: appropriate affect, normal mood. ABSENT: homicidal ideation, suicidal ideation Skin exam: PRESENT: dry, intact, warm. ABSENT: cyanosis, rash Results Laboratory Results: 08/08/17 17:07 08/09/17 09:26 Fluid Type PLEURAL Fluid Source LUNG Fluid Color YELLOW Fluid Appearance HAZY Fluid Viscosity LIQUID Fluid WBC 299 Fluid RBC 560 08/09/17 04:06 Sputum Gram Stain - Final 08/09/17 04:06 Sputum Sputum Culture - Final Impressions: Chest/Abdomen CTA 08/08/17 11:41 IMPRESSION: Findings worrisome for lung cancer with postobstructive pneumonia in the right middle lobe, lymphangitis spread of tumor along the right hilum, and malignant mediastinal and upper abdominal adenopathy No CT angio evidence of acute pulmonary emboli or thoracic aortic dissection. Chest X-Ray 08/09/17 00:00 IMPRESSION: No pneumothorax 2 hours post right-sided thoracentesis Thoracentesis Ultrasound 08/09/17 16:14 IMPRESSION: SUCCESSFUL THORACENTESIS USING ULTRASOUND GUIDANCE. Assessment & Plan - Diagnosis (1) Pneumonia Qualifiers: Pneumonia type: due to unspecified organism Laterality: right Lung location: unspecified part of lung Qualified Code(s): J18.9 - Pneumonia, unspecified organism Plan: Post obstructive do to possible lung mass. Continue on levaquin. (2) Hypertension Qualifiers: Hypertension type: essential hypertension Qualified Code(s): I10 - Essential (primary) hypertension Is this a current diagnosis for this admission?: Yes Plan: Conitnue home medications. Currently stable. (3) Hypoxia Is this a current diagnosis for this admission?: Yes Plan: Possible due to right lung pneumonia, pleural effusion and lung mass. Patient most likely has underlying lung disease of COPD due to his extensive come history. Patient qualifies for home oxygen which will be arranged for discharge. (4) Smoking Is this a current diagnosis for this admission?: Yes Plan: Patient recently quite. (5) Abnormal CT scan, chest Is this a current diagnosis for this admission?: Yes Plan: CT scan finding concerning for metastatic lung disease. Mass is not amenable to CT guided biopsy. Discussed with Dr. Myers with complete bronch as outpatient. Status post thoracentesis and the fluid has been sent for cytology. (6) COPD (chronic obstructive pulmonary disease) Plan: Patient not formally diagnosed with COPD but more than likely has COPD due to to his longtime smoking history. Patient may be chronically hypoxic and did not know it. He was short of breath from time to time but attributed to years of hard work. He would oftentimes take breaks when he becomes short of breathe. Patient does qualify for home oxygen which will be arranged prior to discharge home. (7) Pleural effusion Is this a current diagnosis for this admission?: Yes Plan: Patient status post thoracentesis were 800 mL's of fluid was removed. Patient fluid was sent for studies and especially cytology as there is concern for malignancy with metastasis. - Time Time Spent with patient: 15-24 minutes Anticipated discharge: Home Within: within 24 hours
--- NOTE | 2017-08-10 15:58 | PDOC DISCHARGE SUMMARY ---
General - Admit/Disc Date/PCP Admission Date/Primary Care Provider: 08/08/17 11:56 JULITO MCNEILL MD Discharge Date: 08/10/17 - Discharge Diagnosis (2) Hypertension Is this a current diagnosis for this admission?: Yes (3) Hypoxia Is this a current diagnosis for this admission?: Yes (4) Smoking Is this a current diagnosis for this admission?: Yes (5) Abnormal CT scan, chest Is this a current diagnosis for this admission?: Yes (7) Pleural effusion Is this a current diagnosis for this admission?: Yes - Additional Information Resuscitation Status: Full Code Discharge Diet: Diabetic Discharge Activity: Activity As Tolerated Home Medications: Empagliflozin [Jardiance] 10 mg PO DAILY 08/08/17 Lisinopril [Zestril] 30 mg PO DAILY 08/08/17 Multivit-Min/FA/Lycopen/Lutein [Centrum Silver Men Tablet] 1 each PO DAILY 08/08 Omeprazole 40 mg PO DAILY 08/08/17 Silodosin [Rapaflo] 8 mg PO PRN PRN 08/08/17 Levofloxacin [Levaquin 750 mg Tablet] 750 mg PO DAILY #7 tab 08/10/17 History of Present Illness History of Present Illness: PAULINE SMITH is a 67 year old male presenting to the ED with a 3 week history of cough. Patient sates that the it is productive of clear sputum. Patient states he has been getting short of breathe but thought it was do to all the years of hard work he spent doing [employer]. Patient states that he would take a break and then get back to what he was doing. Patients states that he has been smoking for many years, greater than 40, but has recently quite. Patient states he has not been eating well because food does taste good anymore. Patient states he lost about 10 labs. Patient also reports necrotic wound on his left thigh and back for which he is being seen at the wound clinic. It was suggest that patient have an autoimmune work up for this wounds. In the ED patient was found to be hypoxic in the 80s. Chest XR concerning for right sided pneumonia. CT scan chest was even moreso concerning findings worrisome for lung cancer and postobstructive pneumonia in the right middle lobe , lumphagitic spread of tumor along the right hilum, and malignant mediastinal and upper abdominal adenopathy. There is also bilateral nodularity and enlargement of the adrenal glands worrisome for metastatic disease. Hospital Course Hospital Course: Patient found to have postobstructive pneumonia most likely due to a right sided lung mass. Patient was started IV levaquin. Patient will continue his treatment for 5 more days. Patient also had a pleural effusion for which he underwent centesis and 800 mL of fluid was removed and sent for cytology. Patient was also evaluated by Dr. Peralta will see him in the clinic next week with hopes that the cytology will be available. Curseen did evaluate patient and made arrangements for bronchoscopy with biopsy to be done as outpatient next week. Patient was made aware that there is concern for metastatic lung however further testing needs to be done in order to guide the therapy. As stated above patient has been put in contact with the appropriate specialist. Patient most likely has COPD considering that patient has smoked for over 50 years. Patient now also has obstruction due to a lung mass. Patient was found to be hypoxic while in the hospital. Patient did qualify for home oxygen. Patient was discharged on 2.5 L of oxygen the equipment was delivered to the hospital. Physical Exam Vital Signs: Temp Pulse Resp BP Pulse Ox 98.3 F 98 20 153/78 H 90 L 08/10/17 09:48 08/10/17 09:48 08/10/17 09:48 08/10/17 09:48 08/10/17 09:48 Intake & Output 08/09/17 08/10/17 08/11/17 06:59 06:59 06:59 Intake Total 2806 1174 Output Total 1 Balance 2805 1174 Weight 150 kg 65.2 kg General appearance: PRESENT: no acute distress, thin Head exam: PRESENT: normocephalic Eye exam: PRESENT: EOMI. ABSENT: scleral icterus Ear exam: PRESENT: normal external ear exam Mouth exam: PRESENT: moist Neck exam: ABSENT: carotid bruit, JVD, lymphadenopathy, thyromegaly Respiratory exam: PRESENT: other - Good air movement on the left side. Right sided breath sounds improved following thoracentesis.. ABSENT: rales, rhonchi, wheezes Cardiovascular exam: PRESENT: RRR. ABSENT: diastolic murmur, rubs, systolic murmur Pulses: PRESENT: normal dorsalis pedis pul Vascular exam: PRESENT: normal capillary refill GI/Abdominal exam: PRESENT: normal bowel sounds, soft. ABSENT: distended, guarding, mass, organolmegaly, rebound, tenderness Rectal exam: PRESENT: deferred Extremities exam: PRESENT: full ROM. ABSENT: calf tenderness, clubbing, pedal edema Neurological exam: PRESENT: alert, awake, oriented to person, oriented to place , oriented to time, oriented to situation, CN II-XII grossly intact. ABSENT: motor sensory deficit Psychiatric exam: PRESENT: appropriate affect, normal mood. ABSENT: homicidal ideation, suicidal ideation Skin exam: PRESENT: dry, intact, warm. ABSENT: cyanosis, rash Results Laboratory Results: 08/08/17 17:07 08/09/17 08/09/17 08/09/17 09:26 09:26 09:26 Fluid Glucose 122 Fluid Total Protein 2.4 Fluid LDH 151 Fluid Amylase 36 08/09/17 04:06 Sputum Gram Stain - Final 08/09/17 04:06 Sputum Sputum Culture - Final Impressions: Chest/Abdomen CTA 08/08/17 11:41 IMPRESSION: Findings worrisome for lung cancer with postobstructive pneumonia in the right middle lobe, lymphangitis spread of tumor along the right hilum, and malignant mediastinal and upper abdominal adenopathy No CT angio evidence of acute pulmonary emboli or thoracic aortic dissection. Chest X-Ray 08/09/17 00:00 IMPRESSION: No pneumothorax 2 hours post right-sided thoracentesis Thoracentesis Ultrasound 08/09/17 16:14 IMPRESSION: SUCCESSFUL THORACENTESIS USING ULTRASOUND GUIDANCE. Qualifiers PATEINT BEING DISCHARGED WITH ANY OF THE FOLLOWING DIAGNOSIS?: No Plan Discharge Plan: Patient is being discharged home to complete his antibiotic course with Levaquin 750 mg p.o. daily for 5 days. Next dose to start on 08/11/2017. Patient will complete a total of 7 days treatment. Patient is to follow-up with oncology for the cytology report of his right lung pleural fluid. Patient is also to follow with Dr. Myers for bronchoscopy and biopsy. Time Spent: Less than 30 Minutes
--- NOTE | 2017-08-17 12:39 | Operative Report ---
Operative Report DATE OF SURGERY: 08/14/17 Operative Report: Patient remained n.p.o.'s 16 hours prior to procedure was taken the preop area where consents were reviewed and questions answered and was taken to the bronchoscopy suite where they were intubated by anesthesia with a #8 ET tube on the rapid inductionBrandi García using a T size tracheobronchial scope tracheobronchial his tracheobronchial tree was explored there were no abnormalities of the distal trachea but no splaying of the carmen as well as multiple subcutaneous nodules in the right mainstem bronchus right upper lobe right bronchus intermedius right middle lobe and parts the right lower lobe. There are also multiple subcutaneous nodules in the medial medial and proximal and distal left mainstem bronchus. These areas were lavaged biopsied with the way needle and the transbronchial biopsies and sent to lab for appropriate cultures and studies patient tolerated procedure well postprocedure SaO2 was 97 % and a postprocedure chest x-ray failed to demonstrate any new abnormalities PREOPERATIVE DIAGNOSIS: bilateral lung masses POSTOPERATIVE DIAGNOSIS: Same OPERATION: Fiberoptic bronchoscopy with bronchoalveolar lavage and transbronchial biopsy as well as Forte needle biopsy SURGEON: EVELIO RAJAN ANESTHESIA: GA TISSUE REMOVED OR ALTERED: Bronchoalveolar lavage fluid transbronchial biopsies and Forte needle biopsies multiple sites COMPLICATIONS: None ESTIMATED BLOOD LOSS: 0 cc
== END 2017-08-10 10:15 | disposition home health service (06) | DRG 194 ==
LOC: ER 09:41 → EH 11:56 → 3S 13:55
PROVIDERS: ADMIT Internal Medicine; ATTEND Internal Medicine
PROC: 0W993ZX Drainage of Right Pleural Cavity, Percutaneous Approach, Diagnostic (ICD-10-PCS; principal; 2017-08-09)
DX: J18.9 Pneumonia, unspecified organism (principal); J90 Pleural effusion, not elsewhere classified; R91.8 Other nonspecific abnormal finding of lung field; J44.9 Chronic obstructive pulmonary disease, unspecified; R09.02 Hypoxemia; I10 Essential (primary) hypertension; E11.9 Type 2 diabetes mellitus without complications; Z85.46 Personal history of malignant neoplasm of prostate; K21.9 Gastro-esophageal reflux disease without esophagitis; K44.9 Diaphragmatic hernia without obstruction or gangrene; Z79.899 Other long term (current) drug therapy; Z88.0 Allergy status to penicillin; Z88.8 Allergy status to other drugs, medicaments and biological substances; F17.210 Nicotine dependence, cigarettes, uncomplicated
CPT/HCPCS: 32555; 36415; 71010; 71020; 71275; 80053; 82150; 82550; 82553; 82803; 82945; 82947; 83615; 83690; 83735; 84155; 84157; 84484; 85025; 85610; 85730; 87040; 87070; 87075; 87101; 87205; 88305; 88341; 88342; 89050; 93005; 93010; 94640; 96360; 99285; J1956; J3490; J7030

== ENCOUNTER 2017-08-14 06:24 | Day surgery (SDC) | payer MEDICARE, BC ==
[2017-08-14 07:45] LABS: HEMATOCRIT 38.6 % (37.9-51.0); HEMOGLOBIN 12.9 g/dL (13.5-17.0); HGB HCT DIFFERENCE 0.1; MEAN CORPUSCULAR HEMOGLOBIN 27.6 pg (27.0-33.4); MEAN CORPUSCULAR HGB CONC 33.4 g/dL (32.0-36.0); MEAN CORPUSCULAR VOLUME 83 fl (80-97); PROTHROMBIN TIME 14.5 SEC (11.4-15.4); RED BLOOD COUNT 4.66 10^6/uL (4.35-5.55); RED CELL DISTRIBUTION WIDTH 14.5 % (11.5-14.0); WHITE BLOOD COUNT 10.4 10^3/uL (4.0-10.5)
[2017-08-14 07:46] LABS: PARTIAL THROMBOPLASTIN TIME 34.2 SEC (23.5-35.8)
[2017-08-14 07:56] LABS: ANION GAP 7 (5-19); BLOOD UREA NITROGEN 20 mg/dL (7-20); CALCIUM 8.3 mg/dL (8.4-10.2); CARBON DIOXIDE 29 mmol/L (22-30); CHLORIDE 99 mmol/L (98-107); CREATININE RESULT 0.82 mg/dL (0.52-1.25); GLUCOSE 85 mg/dL (75-110); POTASSIUM 4.3 mmol/L (3.6-5.0); SODIUM 135.1 mmol/L (137-145)
[2017-08-14] MEDS ORDERED: LIDOCAINE 4% INJ/PF (40 MG/ML) 5 ML AMPUL ONE (08:44)
[2017-08-14] MEDS ORDERED: ALBUTEROL SULFATE 0.083% NEB 2.5 MG/3 ML AMPUL NEB ONE (08:44)
[2017-08-14] MEDS ORDERED: LIDOCAINE 2% INJ-PF (20 MG/ML) 10 ML AMPUL ONE (08:45)
[2017-08-14] MEDS ORDERED: FENTANYL CITRATE INJ/PF 100 MCG/2 ML AMPUL ONE (08:45)
[2017-08-14] MEDS ORDERED: MIDAZOLAM 2 MG/2 ML INJ ONE (08:45)
[2017-08-14] MEDS ORDERED: PROPOFOL INJ 200 MG/20 ML VIAL IV ONE (08:46)
[2017-08-14] MEDS ORDERED: ONDANSETRON HCL INJ/PF 4 MG/2 ML SDV ONE (08:46)
[2017-08-14] MEDS ORDERED: NORMAL SALINE 1000 ML 1,000 ML IV PRN (09:06)
[2017-08-14] MEDS ORDERED: LIDOCAINE 4% TOPICAL SOLN 50 ML TP PRN (09:08)
[2017-08-14] MEDS ORDERED: ALBUTEROL SULFATE 0.083% NEB 2.5 MG/3 ML AMPUL NEB SCH (09:15)
[2017-08-14] MEDS ORDERED: EPINEPHRINE INJ 1 MG/10 ML DISP.SYRIN ONE (10:34)
[2017-08-14] MEDS ORDERED: DIPHENHYDRAMINE HCL 50 MG/ML VIAL IV PRN (11:12)
--- NOTE | 2017-08-14 11:12 | RADIOLOGY REPORT (SQ) ---
EXAM DESCRIPTION: CHEST SINGLE VIEW COMPLETED DATE/TIME: 08/14/2017 11:00 am REASON FOR STUDY: S/P Lung Biopsy COMPARISON: None. EXAM PARAMETERS: NUMBER OF VIEWS: One view. TECHNIQUE: Single frontal radiographic view of the chest acquired. RADIATION DOSE: NA LIMITATIONS: None. FINDINGS: LUNGS AND PLEURA: Extensive infiltrates are present in the right lung. There is a right p leural effusion. There is no pneumothorax. The left lung is clear. MEDIASTINUM AND HILAR STRUCTURES: No masses. Contour normal. HEART AND VASCULAR STRUCTURES: Heart normal in size. Normal vasculature. BONES: No acute findings. HARDWARE: None in the chest. OTHER: No other significant finding. IMPRESSION: No pneumothorax. Persistent infiltrates on the right. Reaccumulation of fluid on the r ight. Some degree of right lower lobe atelectasis. TECHNICAL DOCUMENTATION: JOB ID: [id number] [employer]- All Rights Reserved
--- NOTE | 2017-08-14 11:30 | RADIOLOGY REPORT (SQ) ---
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 FLUOROSCOPY TIME: 0.6 minutes fluoro time. 4 images saved to PACS. TECHNIQUE: Intra-operative images acquired during surgical procedure to evaluate progress. NUMBER OF IMAGES: 4 LIMITATIONS: None. FINDINGS: Focus limited images reveal the patient to be undergoing bronchoscopy. IMPRESSION: IMAGE(S) OBTAINED DURING PROCEDURE. COMMENT: Quality ID [id number]: Final reports for procedures using fluoroscopy that document radiation exp osure indices, or exposure time and number of fluorographic images (if radiation exposure indices are not available) Please consult full operative report of the attending physician for description of the procedure. TECHNICAL DOCUMENTATION: JOB ID: [id number] [employer]- All Rights Reserved
--- NOTE | 2017-08-14 11:30 | RADIOLOGY REPORT (SQ) ---
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 FLUOROSCOPY TIME: 0.6 minutes fluoro time. 4 images saved to PACS. TECHNIQUE: Intra-operative images acquired during surgical procedure to evaluate progress. NUMBER OF IMAGES: 4 LIMITATIONS: None. FINDINGS: Focus limited images reveal the patient to be undergoing bronchoscopy. IMPRESSION: IMAGE(S) OBTAINED DURING PROCEDURE. COMMENT: Quality ID 145: Final reports for procedures using fluoroscopy that document radiation exp osure indices, or exposure time and number of fluorographic images (if radiation exposure indices are not available) Please consult full operative report of the attending physician for description of the procedure. TECHNICAL DOCUMENTATION: JOB ID: [id number] [employer]- All Rights Reserved
[2017-08-14 11:52] LABS: FLUID TYPE BRONCHIAL WASH; STAIN REACTIVITY CHECK ACCEPTABLE
[2017-08-14 11:53] LABS: FLUID APPEARANCE TURBID
[2017-08-14 12:21] LABS: FLUID RBC AVERAGE 265.5; FLUID RBC DILUENT USED SALINE; FLUID RBC DILUTION FACTOR 10; FLUID RBC SIDE 1 256; FLUID RBC SIDE 2 275; TOTAL RBC SQUARES COUNTED FLD 25
[2017-08-14 12:53] VITALS: BP 116/65
[2017-08-14] MEDS ORDERED: SUCCINYLCHOLINE CHLORIDE INJ 200 MG/10 ML VIAL ONE (13:28)
[2017-08-14] MEDS ORDERED: ACETAMINOPHEN 325 MG TABLET PO SCH (14:00)
--- NOTE | 2017-08-14 17:38 | Operative Report ---
Operative Report DATE OF SURGERY: 08/14/17 Operative Report: Patient was kept n.p.o. 18 hours prior to the procedure presented to surgery in the preop area where consents were reviewed IV as IV access was established patient was then taken to bronchoscopy room and under rapid sequence patient was intubated with a #8 ET tube. Then using a "T" size bronchoscope his brachial tracheobronchial tree was explored there was submucosal swelling at the distal trachea. There is splaying of the carmen. There is some mucosal swelling in the right mainstem bronchus; the right upper lobe; right bronchus intermedius and right middle lobe there was swelling to the point of obstruction of the right middle lobe and this area was bleeding without any provocation. There was some mucosal swelling also associated with the medial aspects of the left lower lobe. In addition there was diffuse mucosal swelling of the left mainstem bronchus in the left upper lobe there were no abnormalities noted in the left lower lobe. Alveolar lavage was taken from the right middle lobe as well as transbronchial biopsies and Hernandez needle biopsies. We then moved to the right upper lobe were Hernandez needle biopsies were taken. We then moved to the bronchus intermedius again Hernandez needle biopsies were taken. We moved to the carmen multiple Hernandez needle biopsy was taken as well.We went to the left mainstem bronchus and multiple my needle biopsies as well as several transbronchial biopsies were taken.Patient tolerated procedure well postprocedure SaO2 was 97%. The postprocedure chest x-ray is in progress. Fluids and tissue were sent to the lab for appropriate cultures and study. Conversation was had with patient spouse as to the findings and photographs that were taken during the procedure were reviewed with her. Portions of this note were dictated during [employer] natural speaking voice recognition software. Variations in spelling and tvocabulary are possible and unintentional. Please notify the author if any discrepancies are noted. PREOPERATIVE DIAGNOSIS: R&L lung masses POSTOPERATIVE DIAGNOSIS: R&L lung masses OPERATION: fiberoptic bronchoscopy bronchoalveolar lavage;transbronchial;Jann ortiz SURGEON: EVELIO RAJAN ANESTHESIA: GA TISSUE REMOVED OR ALTERED: trans bronchial RML;RUL;L main. HERNANDEZ needle RML:RUL: CARMEN:L Mainstem. BAL R middle lobe COMPLICATIONS: 0 ESTIMATED BLOOD LOSS: 0cc INTRAOPERATIVE FINDINGS: obstructed RML;gross subnucosal distortion of RML:RLL: RUL:R Mainstem bronchus intermedius;carmen;L main stem
--- NOTE | 2017-09-04 14:31 | Progress Note ---
Provider Note Provider Note: Mr. Martin Hampton is 67-year-old male complains of increasing shortness of breath over the last several days as well as some difficulty swallowing. Keeps coughing and states cough is usually productive of clear phlegm. He denies hemoptysis but his PPD status is unknown he has no history of chronic lung disease as a child or adolescent he does admit to some dyspnea on exertion and wheezing which is increased somewhat over the last several weeks he has been until exposed to large amounts of passive smoke as a child as well as an adult. He has smoked one half packs a day for 56 years but is currently down to half a pack a day he has many jobs but he is unaware of being exposed to any known respiratory toxins other than dust and dirt he has no pets and no recent travel except to [place] he admits to some tightness in his chest sleeps on 2 pillows occasional PND occasional nocturnal cough and occasional edema. He admits to snoring restless sleep nocturia 2 times per night unrestful sleep and daytime somnolence. He was noted on CT scan to have a large right pleural effusion pleural effusion and collapse of the right middle lobe which was suspected endobronchial lesion he subsequently presented today for a bronchoscopy as of pleural fluid was negative for cytology Past medical history: Unchanged Past surgical history: Unchanged Family history: unchanged Social history: unchanged Review of systems: is unchanged from his previous consultation. Physical examination: Well-developed well-nourished male no acute distress skin shows no lesions HEENT exam atraumatic no cephalic PERRLA EOMI nose patent no lesions oropharynx no lesions neck is supple no discrete adenopathy thyromegaly or jugular venous distention chest shows symmetrical excursion decreased breath sounds prolonged expiratory phase some scattered rhonchi wheezes but no rales cardiovascular regular rhythm S1-S2 within normal limits was a +1 symmetrical his abdomen is soft nontender bowel sounds in all quadrants no mass organomegaly back no CVAT sacral edema extremities full range of motion 4 no edema clubbing or cyanosis neurological DTRs +2 cranial nerves II through XII grossly intact no clonus no Babinski motor is 5/5 sensory is within normal limits he is oriented 4. Assessment patient presented today for fiberoptic bronchoscopy due to right middle lobe mass. consents have been reviewed and signed from anesthesia as well as from the bronchoscopist. Kevin Myers M.D.
== END 2017-08-14 12:35 | disposition home or self-care (01) ==
LOC: END 06:24
PROVIDERS: ATTEND Internal Medicine Pulmonary Disease
PROC: 0BBF3ZX Excision of Right Lower Lung Lobe, Percutaneous Approach, Diagnostic (ICD-10-PCS; principal; 2017-08-14 08:30)
PROC: 0BB Respiratory System, Excision (ICD-10-PCS; 2017-08-14 08:30)
DX: Z79.01 Long term (current) use of anticoagulants (principal); C34.2 Malignant neoplasm of middle lobe, bronchus or lung; C34.02 Malignant neoplasm of left main bronchus; K21.9 Gastro-esophageal reflux disease without esophagitis; E11.9 Type 2 diabetes mellitus without complications; I10 Essential (primary) hypertension; Z87.891 Personal history of nicotine dependence
CPT/HCPCS: 31628; 31629; 36415; 87070; 87205; 87206; 87116; 87101; 82962; 85027; 85610; 85730; 89050; 80048; 87015; 88162; 88342 ×2; 88341 ×2; 88305 ×2; 71010; J2250; J0171; J3010; J0330; J2405; J2704; J3490 ×2; A9270; 520

== ENCOUNTER → 2017-08-20 | Outpatient (CLI) | payer MEDICARE, BC ==
--- NOTE | 2017-08-21 09:37 | RADIOLOGY REPORT (SQ) ---
EXAM DESCRIPTION: PET CT SKULL/THIGH COMPLETED DATE/TIME: 08/20/2017 7:52 pm REASON FOR STUDY: LUNG CANCER C34.2 MALIGNANT NEOPLASM OF MIDDLE LOBE, BRONCHUS OR LUNG COMPARISON: None. Correlation: CT chest 08/08/2017. RADIONUCLIDE AND DOSE: 12.4 mCi F18 FDG The route of agent administration: Intravenous FASTING BLOOD SUGAR: 90 mg/dl CONTRAST TYPE AND DOSE: No CT contrast given. TECHNIQUE: Blood glucose level was verified. Above dose of FDG was injected intravenously. 2-D seg mented attenuation correction images were obtained from the base of the skull to the midthighs. Nonc ontrast CT images were obtained for attenuation correction and fusion with emission images. CT image s were performed without oral or intravenous contrast and are not sensitive for parenchymal lesions. A series of overlapping emission PET images were obtained. Images reviewed and manipulated at [facility] work station by the radiologist. Images stored on PACS. LIMITATIONS: None. FINDINGS: HEAD AND NECK: No areas of abnormal metabolic activity in the soft tissues of the head and neck. CHEST: Increased uptake right level 2 node measuring about 1 cm, 4.4 mean SUV. Level 4 are noted saranya suring just over 1 cm, 3.5 mean SUV. Level 5 node measuring about 1.5 cm, 3.7 SUV. Poorly marginate d right level 10 uptake 5.8 SUV. Left level 10 uptake 2.7 mean SUV. Increased uptake within collaps ed right lower lobe mean SUV 6.0. ABDOMEN AND PELVIS: Increased uptake 2.4 mean SUV 1.5 cm celiac axis gastrohepatic node. PROXIMAL LOWER EXTREMITIES: No areas of abnormal metabolic activity in the soft tissues of the lower extremities. BONES: No abnormal metabolic activity in the visualized skeleton. ADDITIONAL CT FINDINGS: Interval collapse of the right lower lobe compared to the recent chest CT. P artial re-expansion of the medial segment of the middle lobe. OTHER: No other significant findings. IMPRESSION: Lung primary with hypermetabolic regional metastasis. Hypermetabolic upper abdominal ad enopathy. TECHNICAL DOCUMENTATION: JOB ID: [id number] [employer]- All Rights Reserved
== END ==
LOC: RAD 17:07
PROVIDERS: ATTEND Internal Medicine
DX: C34.2 Malignant neoplasm of middle lobe, bronchus or lung (principal)
CPT/HCPCS: 78815; A9552

== ENCOUNTER 2017-08-28 06:46 | Day surgery (SDC) | payer MEDICARE, BC ==
[~2017-08-28 06:46] MED LIST changes: +CLINDAMYCIN 600 MG/D5W RTU 600 MG/50 ML RTUPB IV PRN; +DEXTROSE 5%-1/2 NORMAL SALINE 1,000 ML IV PRN; -DIPHENHYDRAMINE HCL 50 MG/ML VIAL ONE; -EPINEPHRINE INJ 1 MG/10 ML DISP.SYRIN ONE; -FLUMAZENIL INJ 0.5 MG/5 ML VIAL IV ONE; -GLUCAGON,HUMAN RECOMB 1 MG INJ ONE; -NALOXONE HCL INJ/PF 0.4 MG/1 ML SDV ONE; -ONDANSETRON HCL INJ/PF 4 MG/2 ML SDV ONE
[2017-08-28 07:10] LABS: HEMATOCRIT 35.2 % (37.9-51.0); HGB HCT DIFFERENCE 0.8; MEAN CORPUSCULAR HEMOGLOBIN 27.7 pg (27.0-33.4); MEAN CORPUSCULAR VOLUME 82 fl (80-97); RED BLOOD COUNT 4.32 10^6/uL (4.35-5.55); RED CELL DISTRIBUTION WIDTH 14.5 % (11.5-14.0); WHITE BLOOD COUNT 8.1 10^3/uL (4.0-10.5)
[2017-08-28 07:29] LABS: ANION GAP 7 (5-19); BLOOD UREA NITROGEN 23 mg/dL (7-20); CALCIUM 8.2 mg/dL (8.4-10.2); CARBON DIOXIDE 29 mmol/L (22-30); CHLORIDE 94 mmol/L (98-107); CREATININE RESULT 0.82 mg/dL (0.52-1.25); GLUCOSE 80 mg/dL (75-110); POTASSIUM 4.8 mmol/L (3.6-5.0); SODIUM 130.1 mmol/L (137-145)
[2017-08-28] MEDS ORDERED: ONDANSETRON HCL INJ/PF 4 MG/2 ML SDV ONE (07:45)
--- NOTE | 2017-08-28 08:58 | RADIOLOGY REPORT (SQ) ---
EXAM DESCRIPTION: CHEST SINGLE VIEW COMPLETED DATE/TIME: 08/28/2017 7:26 am REASON FOR STUDY: pre procedure COMPARISON: CT angio chest 08/08/2017 Chest films 08/09/2017, 08/14/2017 PET-CT 08/20/2017 EXAM PARAMETERS: NUMBER OF VIEWS: One view. TECHNIQUE: Single frontal radiographic view of the chest acquired. RADIATION DOSE: NA LIMITATIONS: None. FINDINGS: LUNGS AND PLEURA: Since the prior studies, there has been further collapse and consolidati on in the right lung. There is now opacification of the lower half right hemithorax, from collapse a nd consolidation in the right middle lobe and right lower lobe. Increase in right pleural effusion c ompared to previous studies. Stable consolidation in the right perihilar region likely lymphangitic tumor Left lung well inflated and clear. No left pleural effusion. No right or left pneumothorax MEDIASTINUM AND HILAR STRUCTURES: Abnormal enlarged right hilum correlates with prior studies HEART AND VASCULAR STRUCTURES: Heart normal in size. Normal vasculature. BONES: No acute findings. HARDWARE: None in the chest. OTHER: No other significant finding. IMPRESSION: Further volume loss and consolidation in the right lower hemithorax from right middle an d lower lobe collapse and increasing right pleural effusion. TECHNICAL DOCUMENTATION: JOB ID: [id number] [employer]- All Rights Reserved
[2017-08-28] MEDS ORDERED: LIDOCAINE 0.5% INJ-PF (5 MG/ML) 50 ML SDV ONE (09:02)
[2017-08-28] MEDS ORDERED: MIDAZOLAM 2 MG/2 ML INJ ONE (09:02)
[2017-08-28] MEDS ORDERED: FENTANYL CITRATE INJ/PF 100 MCG/2 ML AMPUL ONE (09:03)
[2017-08-28] MEDS ORDERED: BACITRACIN INJ 50,000 UNIT VIAL ONE (09:03)
[2017-08-28] MEDS ORDERED: PROMETHAZINE HCL INJ 25 MG/1 ML VIAL ONE (09:41)
[2017-08-28] MEDS ORDERED: NORMAL SALINE 1000 ML 1,000 ML IV PRN (10:45)
--- NOTE | 2017-08-28 10:45 | PDOC DISCHARGE SUMMARY ---
Discharge Summary (SDC) - Discharge Final Diagnosis: #1 lung cancer. 2. COPD. 3. Tobacco use disorder. . Date of Surgery: 08/28/17 Discharge Date: 08/28/17 Condition: Poor Treatment or Instructions: Discharge home [after recovery per ASU criteria]. Diet nourishing,as tolerated, when fully awake advance as tolerated. Activities within moderation encouraged. Follow up in my office by appointment in about [1 week]. Call for appointment. Leave wounds [covered], [keep clean and dry, until office visit in 1 week]. Hold of on school/work [until evaluation in office]. Meds per med rec. Percocet. May shower [in 48 hrs], [try to keep operated area as dry as possible]. Prescriptions: Oxycodone HCl/Acetaminophen [Percocet 5-325 mg Tablet] 1 tab PO ASDIR PRN #15 tab PRN Reason: Referrals: JULITO MCNEILL MD [Primary Care Provider] - Discharge Diet: As Tolerated Respiratory Treatments at Home: Deep Breathing/Coughing Discharge Activity: Activity As Tolerated Report the Following to Your Physician Immediately: Unusual Bleeding
--- NOTE | 2017-08-28 10:48 | Operative Report ---
Operative Report DATE OF SURGERY: 08/28/17 PREOPERATIVE DIAGNOSIS: #1 lung cancer. 2. COPD. 3. Tobacco use disorder. POSTOPERATIVE DIAGNOSIS: #1 lung cancer. Post Port-A-Cath insertion. 2. COPD. 3. Tobacco use disorder. OPERATION: 1. Ultrasound evaluation and real-time access in the right internal jugular vein. 2. Insertion of single-lumen Port-A-Cath via real-time access in the right internal jugular vein. 3. Angiogram and interpretation. SURGEON: LARON ARMENDARIZ PLATFORM POWER TECHNICIAN: None ANESTHESIA: Moderate Sedation TISSUE REMOVED OR ALTERED: None applicable. COMPLICATIONS: None ESTIMATED BLOOD LOSS: 5 mL. INTRAOPERATIVE FINDINGS: Of a satisfactory right internal jugular vein about 1.5 cm in diameter. Situated almost immediately beneath the sternocleidomastoid. Satisfactory and safe axis obtained on ultrasound guidance. Satisfactory position of the tip of the catheter just down in the right atrium. Easy egress of blood and ingress of heparinized solution. Angiogram demonstrated smooth flow of contrast through the catheter, right atrium, pulmonary outflow tract. The catheter was transected and fixed to the port at 19.5 cm. PROCEDURE: After obtaining informed consent, the patient was taken to the Load Out Worker and positioned supine. The [right] neck and chest were prepared with chlorhexidine and draped out with sterile linen. After the " universal timeout", in which it was verified that the patient continued to receive antibiotic, the procedure commenced. A steriley sheathed ultrasound probe was used to evaluate the [ right] internal jugular vein. Local anesthesia was infiltrated adjacent to the probe. Access into the [right] internal jugular vein was obtained using a micropuncture needle, followed by micropuncture wire and then a micropuncture catheter. This was followed by introduction of a 0.035 guidewire the tip of which was placed down into the inferior vena cava . The port sites was marked , locally anesthetized and incision made. Dissection now proceeded to the deep subcutaneous subcutaneous tissues so that a pocket for the port was made. Meticulous hemostasis was secured and the catheter was tunneled between the 2 incisions. Proximally, the catheter was now positioned using a peel-away sheath. Distally the catheter was tailored to an appropriate length and then mated to the port using the contained fixating device. The port was now placed in the pocket and the catheter optimally positioned. The port was accessed with a López needle and an angiogram done under digital subtraction. The findings as dictated. With adequate and satisfactory positioning, both lumens of the chamber were irrigated with heparinized solution. The wounds were now closed using interrupted 3-0 PDS to the subcutaneous tissues and a continuous subcuticular suture of 4-0 Monocryl to the skin. These are reinforced with Steri-Strips over benzoin and then dressings applied. Time: 0.0 minute. Dose: 6.08 m Gy Contrast: 5 mls. Isovue 300. Copies of the dictated operative report for Dr. Laron Tomlinson MD.
[2017-08-28 11:48] VITALS: BP 119/65
[2017-08-28 14:36] LABS: BASOPHILS % (MANUAL) 0 % (0-2); BURR CELLS 1+; EOSINOPHILS % (MANUAL) 0 % (0-6); LYMPHOCYTES % (MANUAL) 9 % (13-45); OVALOCYTES 1+; POIKILOCYTOSIS 2+; TOTAL CELLS COUNTED 100; TOXIC GRANULATION SLIGHT; TOXIC VACUOLATION PRESENT
[2017-08-28 14:37] LABS: POLYCHROMASIA SLIGHT
--- NOTE | 2017-08-28 16:53 | RADIOLOGY REPORT (SQ) ---
EXAM DESCRIPTION: PORTACATH INSERTION; GUIDANCE FLUOROSCOPIC COMPLETED DATE/TIME: 08/28/2017 3:44 pm; 08/28/2017 3:42 pm REASON FOR STUDY: C34.2 MALIGNANT NEOPLASM OF MIDDLE LOBE BRONCH; C34.2 C34.2 MALIGNANT NEOPLASM OF MIDDLE LOBE, BRONCHUS OR LUNG COMPARISON: None. FLUOROSCOPY TIME: Less than 5 seconds 11 series of digital images saved to PACS. TECHNIQUE: Intra-operative images acquired during surgical procedure to evaluate progress. NUMBER OF IMAGES: 11 series of digital images LIMITATIONS: None. FINDINGS: Intra procedural imaging and fluoro during placement of a tunneled central venous catheter . Please see the operative report for further details IMPRESSION: Intra procedural imaging and fluoro COMMENT: Quality ID [id number]: Final reports for procedures using fluoroscopy that document radiation exp osure indices, or exposure time and number of fluorographic images (if radiation exposure indices are not available) Please consult full operative report of the attending physician for description of the procedure. TECHNICAL DOCUMENTATION: JOB ID: [id number] [employer]- All Rights Reserved
== END 2017-08-28 11:45 | disposition home or self-care (01) ==
LOC: CCL 06:46
PROVIDERS: ATTEND Surgery
PROC: 05H533Z Insertion of Infusion Device into Right Subclavian Vein, Percutaneous Approach (ICD-10-PCS; principal; 2017-08-28)
DX: C34.2 Malignant neoplasm of middle lobe, bronchus or lung (principal); J44.9 Chronic obstructive pulmonary disease, unspecified; F17.210 Nicotine dependence, cigarettes, uncomplicated; E11.9 Type 2 diabetes mellitus without complications; I10 Essential (primary) hypertension; Z99.81 Dependence on supplemental oxygen; Z79.899 Other long term (current) drug therapy; Z85.828 Personal history of other malignant neoplasm of skin; Z87.09 Personal history of other diseases of the respiratory system
CPT/HCPCS: 36415; 85025; 80048; 36561; 76937; 77001; 71010; C1752; C1788; J2250; J3490 ×2; J3010; J2550; J2405; J1644

== ENCOUNTER → 2017-09-29 | Outpatient (CLI) | payer MEDICARE, BC ==
--- NOTE | 2017-09-29 12:14 | RADIOLOGY REPORT (SQ) ---
EXAM DESCRIPTION: CT CHEST WITH; CT ABD/PELVIS WITH IV ONLY COMPLETED DATE/TIME: 09/29/2017 9:25 am REASON FOR STUDY: C34.2 MALIGNANT NEOPLASM OF MIDLE LOBE, BRONCHUS OR LUNG C34.2 MALIGNANT NEOPLASM OF MIDDLE LOBE, BRONCHUS OR LUNG COMPARISON: PET-CT 08/20/2017 CT angio chest 08/08/2017 CONTRAST TYPE AND DOSE: contrast/concentration: Isovue 370.00 mg/ml; Total Contrast Delivered: 69.0 ml; Total Saline Delivered: 52.0 ml RENAL FUNCTION: Creatinine 0.9 TECHNIQUE: CT scan of the chest performed using helical scanning technique with dynamic intravenous contrast injection. Images reviewed with lung, soft tissue and bone windows. Reconstructed coronal a nd sagittal MPR images reviewed. All images stored on PACS. CT scan of the abdomen and pelvis performed with intravenous and without oral contrastusing helical s marco a technique with dynamic intravenous contrast injection. Images reviewed with lung, soft tissu e and bone windows. Reconstructed coronal and sagittal MPR images reviewed. Delayed images for eval uation of the urinary system also acquired and evaluated. All images stored on PACS. All CT scanners at this facility use dose modulation, iterative reconstruction, and/or weight based d osing when appropriate to reduce radiation dose to as low as reasonably achievable (ALARA). [facility]: Dose Right [facility]: CareDose [facility]: Dose Right [facility]: Teradose 4D [facility]: [employer] RADIATION DOSE: CT Rad equipment meets quality standard of care and radiation dose reduction techniq ues were employed. CTDIvol: 4.4 - 4.6 mGy. DLP: 660 mGy-cm. . LIMITATIONS: None. FINDINGS: CHEST: LUNGS AND PLEURA: On the right side, there are thickened interlobular septa throughout the right lung , with a thin rind of tissue encasing the right upper lobe segmental bronchi and vessels, worrisome f or limited due date spread of tumor. The right middle lobe bronchus is occluded, with complete collapse of the right middle lobe. In the right lower lobe, a 2 x 1 cm nodule is present subpleural peripheral location axial image 66. A 9 x 7 mm nodule is present just above the right hemidiaphragm on axial image 78. There is a trace right pleural effusion. On the left side, no focal infiltrates or pleural effusions. There is hyperlucency of the upper lobe from obstructive disease. HILAR AND MEDIASTINAL STRUCTURES: Multiple enlarged lymph nodes, unchanged from 08/20/2017 PET-CT as f ollows: Pretracheal 1 x 1 cm lymph node axial image 23 Precarinal 1.8 x 1.3 cm lymph node axial image 26 Aortopulmonary window 1.5 x 0.7 cm lymph node axial image 26 Prevascular 2.1 x 0.8 cm lymph node axial image 26 HEART AND VASCULAR STRUCTURES: No aneurysm or dissection. No central pulmonary emboli. No pericardi al effusion. HARDWARE: None. THYROID AND OTHER SOFT TISSUES: No masses. No adenopathy. BONES: No significant finding. OTHER: No other significant finding. ABDOMEN AND PELVIS: LIVER: Normal size. No masses. No dilated ducts. SPLEEN: Normal size. No focal lesions. PANCREAS: No masses. No significant calcifications. No adjacent inflammation or peripancreatic fluid collections. Pancreatic duct not dilated. GALLBLADDER: No identified stones by CT criteria. No inflammatory changes to suggest cholecystitis. ADRENAL GLANDS: Right adrenal gland unremarkable. Left adrenal nodule 2.5 x 2 cm in size, unchanged from 08/08/2017 RIGHT KIDNEY AND URETER: No solid masses. No significant calcification. No hydronephrosis or hydroure ter. LEFT KIDNEY AND URETER: No solid masses. 1 surgical brett.8 cm left midpole renal cortical cyst. 1.7 cm left lower pole renal cortical cyst. No significant calcification. No hydronephrosis or hydro ureter. AORTA AND VESSELS: No aneurysm. No dissection. Renal arteries, SMA, celiac without stenosis. RETROPERITONEUM: No retroperitoneal adenopathy, hemorrhage or masses. BOWEL AND PERITONEAL CAVITY: No masses or inflammatory changes. No free fluid or peritoneal masses. At the hepatic flexure of colon post partial colectomy APPENDIX: Normal. ABDOMINAL WALL: No masses. No hernias. BONES: No significant or acute findings. Pelvis: Radiotherapy treatment seeds in the prostate. Bladder, rectum unremarkable. No pelvic adeno munira or free fluid. IMPRESSION: Decrease in right pleural effusion, resolved right lower lobe collapse compared to PET-C T 08/20/2017. 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 Surgical clips along the hepatic flex ure colon. Radiotherapy treatment seeds in the prostate TECHNICAL DOCUMENTATION: JOB ID: [id number] Quality ID # [id number]: Final reports with documentation of one or more dose reduction techniques (e.g., Au tomated exposure control, adjustment of the mA and/or kV according to patient size, use of iterative reconstruction technique) 2010 [employer]- All Rights Reserved
== END ==
LOC: RAD 08:52
PROVIDERS: ATTEND Internal Medicine
DX: C34.2 Malignant neoplasm of middle lobe, bronchus or lung (principal)
CPT/HCPCS: 71260; 74177

== ENCOUNTER → 2017-11-10 | Outpatient (CLI) | payer MEDICARE, BC ==
--- NOTE | 2017-11-10 10:23 | RADIOLOGY REPORT (SQ) ---
EXAM DESCRIPTION: CT CHEST WITH; CT ABD/PELVIS WITH IV ONLY COMPLETED DATE/TIME: 11/10/2017 9:03 am REASON FOR STUDY: LUNG CA C34.2 MALIGNANT NEOPLASM OF MIDDLE LOBE, BRONCHUS OR LUNG COMPARISON: PET-CT 08/20/2017 CT chest abdomen pelvis 09/29/2017 CT chest 08/08/2017 CONTRAST TYPE AND DOSE: contrast/concentration: Isovue 370.00 mg/ml; Total Contrast Delivered: 71.0 ml; Total Saline Delivered: 66.0 ml RENAL FUNCTION: Creatinine 0.8 TECHNIQUE: CT scan of the chest performed using helical scanning technique with dynamic intravenous contrast injection. Images reviewed with lung, soft tissue and bone windows. Reconstructed coronal a nd sagittal MPR images reviewed. All images stored on PACS. CT scan of the abdomen and pelvis performed with intravenous and without oral contrastusing helical s marco a technique with dynamic intravenous contrast injection. Images reviewed with lung, soft tissu e and bone windows. Reconstructed coronal and sagittal MPR images reviewed. Delayed images for eval uation of the urinary system also acquired and evaluated. All images stored on PACS. All CT scanners at this facility use dose modulation, iterative reconstruction, and/or weight based d osing when appropriate to reduce radiation dose to as low as reasonably achievable (ALARA). [facility]: Dose Right [facility]: CareDose [facility]: Dose Right [facility]: Teradose 4D [facility]: [employer] RADIATION DOSE: CT Rad equipment meets quality standard of care and radiation dose reduction techniq ues were employed. CTDIvol: 4.6 - 5.0 mGy. DLP: 710 mGy-cm. . LIMITATIONS: None. FINDINGS: CHEST: LUNGS AND PLEURA: All there is diffuse thickening of the right lung interlobular septa and thickening of the perihilar peribronchial soft tissues. There is mild narrowing of the right upper lobe and ri ght lower lobe segmental airway is, similar compared to chest abdomen pelvis CT 09/29/2017. Narrowing of the right lower lobe airways is improved compared to PET-CT 08/20/2017, airways are now patent. There is persistent collapse of the right middle lobe, right middle lobe airways are diffusely narrow ed, similar compared to 09/29/2017. Right middle lobe airways were old on PET-CT 08/20/2017. There is a stable small right pleural effusion compared to previous studies. In the periphery of the right lower lobe lateral basilar segment, a 1.9 x 1.1 cm pleural-based nodule is present unchanged from 09/29/2017. This was obscured by lung consolidation on PET-CT 08/20/2017. No left lung nodules are identified. No left pleural effusion. No right or left pneumothorax. HILAR AND MEDIASTINAL STRUCTURES: Again, although enlarged lymph nodes in the mediastinum are present as follows: Pretracheal 1.1 x 0.9 cm lymph node axial image 20 (unchanged 09/29/2017, was 1.6 x 1 cm on 08/20/2017) . Precarinal 1.7 x 1.3 cm lymph node image 25 (unchanged 09/29/2017, was 2.2 x 1.3 cm in size on 08/20/20 17). Prevascular 2 x 0.7 cm lymph node image 25 (no change 09/29/2017, no change 08/20/2017) HEART AND VASCULAR STRUCTURES: No aneurysm or dissection. No central pulmonary emboli. No pericardi al effusion. HARDWARE: None. THYROID AND OTHER SOFT TISSUES: No masses. No adenopathy. BONES: No significant finding. OTHER: No other significant finding. ABDOMEN AND PELVIS: LIVER: Normal size. No masses. No dilated ducts. SPLEEN: Normal size. No focal lesions. PANCREAS: Mild atrophy with spotty diffuse calcifications. No CT findings worrisome for acute pancre atitis GALLBLADDER: No identified stones by CT criteria. No inflammatory changes to suggest cholecystitis. ADRENAL GLANDS: Right adrenal gland unremarkable. Stable 2.5 cm left adrenal nodule. RIGHT KIDNEY AND URETER: No solid masses. Tiny intrarenal less than 5 mm stones. No hydronephrosis o r hydroureter. LEFT KIDNEY AND URETER: No solid masses. Tiny intrarenal less than 5 mm stones. No hydronephrosis or hydroureter. AORTA AND VESSELS: No aneurysm. No dissection. Renal arteries, SMA, celiac without stenosis. RETROPERITONEUM: No retroperitoneal adenopathy, hemorrhage or masses. BOWEL AND PERITONEAL CAVITY: No masses or inflammatory changes. No free fluid or peritoneal masses. Surgical clips along the transverse colon. APPENDIX: Normal. ABDOMINAL WALL: No masses. No hernias. PELVIS: No mass or free fluid. Normal bladder. Radiotherapy treatment seeds in the prostate BONES: Diffuse degenerative changes lumbar spine OTHER: No other significant finding. IMPRESSION: Ppersistent right middle lobe collapse and consolidation Stable right lower lobe pleural-based nodule, small right pleural effusion, mediastinal adenopathy, i nterlobular thickening right lung and thickening of right peribronchial soft tissues as compared to . No CT evidence of metastatic disease to the abdomen or pelvis TECHNICAL DOCUMENTATION: JOB ID: [id number] Quality ID # [id number]: Final reports with documentation of one or more dose reduction techniques (e.g., Au tomated exposure control, adjustment of the mA and/or kV according to patient size, use of iterative reconstruction technique) 2010 [employer]- All Rights Reserved
== END ==
LOC: RAD 07:56
PROVIDERS: ATTEND Internal Medicine
DX: C34.2 Malignant neoplasm of middle lobe, bronchus or lung (principal)
CPT/HCPCS: 71260; 74177

== ENCOUNTER 2018-01-10 09:13 | Inpatient (IN) | payer MEDICARE, BC ==
--- NOTE | 2018-01-10 09:41 | ER Document Report ---
ED General - General Chief Complaint: Shortness Of Breath Stated Complaint: SHORTNESS OF BREATH Time Seen by Provider: 01/10/18 09:40 Mode of Arrival: Ambulatory Information source: Patient, Dr. Office Notes: 67-year-old male history of stage IV lung CA with history of pleural effusion collapsed lung presents with complaints of hypoxemia, patient notes his O2 sats have been in the 80s the past 3 days at home, upon arrival to emergency department he is satting 95%. Patient is noted by his oncologist to require a CT a chest abdomen pelvis on Monday, TRAVEL OUTSIDE OF THE [place] IN LAST 30 DAYS: No - HPI Onset: Other - 3 day duration Onset/Duration: Persistent Quality of pain: No pain Severity: Mild Pain Level: Denies Associated symptoms: Shortness of breath Exacerbated by: Denies Relieved by: Denies Similar symptoms previously: Yes Recently seen / treated by doctor: Yes - Related Data Allergies/Adverse Reactions: Penicillins Allergy (Unknown, Verified 08/09/17 14:58) unknown tamsulosin [From Flomax] Allergy (Unknown, Verified 08/09/17 14:58) UNKNOWN Past Medical History - Social History Smoking Status: Never Smoker Cigarette use (# per day): No Chew tobacco use (# tins/day): No Smoking Education Provided: No Family History: Hypertension, Malignancy - Past Medical History Cardiac Medical History: Reports: Hx Hypertension Denies: Hx Atrial Fibrillation, Hx Congestive Heart Failure, Hx Coronary Artery Disease, Hx Heart Attack, Hx Hypercholesterolemia, Hx Peripheral Vascular Disease, Hx Pulmonary Embolism, Hx Heart Murmur Pulmonary Medical History: Reports: Hx COPD Denies: Hx Asthma, Hx Bronchitis, Hx Pneumonia, Hx Respiratory Failure, Hx Sleep Apnea, Hx Tuberculosis Neurological Medical History: Denies: Hx Cerebrovascular Accident, Hx Seizures Endocrine Medical History: Reports: Hx Diabetes Mellitus Type 2. Denies: Hx Graves' Disease, Hx Hyperthyroidism, Hx Hypothyroidism Renal/ Medical History: Denies: Hx Benign Prostatic Hyperplasia, Hx End Stage Renal Disease, Hx Kidney Stones, Hx Peritoneal Dialysis Malignancy Medical History: Denies Hx Leukemia, Denies Hx Lung Cancer GI Medical History: Reports: Hx Gastroesophageal Reflux Disease, Hx Hiatal Hernia. 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 Denies: Hx Appendectomy, Hx Bowel Surgery, Hx Cholecystectomy, Hx Colostomy, Hx Coronary Artery Bypass Graft, Hx Gastric Bypass Surgery, Hx Herniorrhaphy, Hx Pacemaker, Hx Tonsillectomy - Immunizations Hx Diphtheria, Pertussis, Tetanus Vaccination: No Review of Systems - Review of Systems Notes: REVIEW OF SYSTEMS: CONSTITUTIONAL : Denies fever, chills, or sweats. Denies recent illness. EENT: Denies eye, ear, throat, or mouth pain or symptoms. Denies nasal or sinus congestion or discharge. Denies throat, tongue, or mouth swelling or difficulty swallowing. CARDIOVASCULAR: Denies chest pain. Denies palpitations or racing or irregular heart beat. Denies ankle edema. RESPIRATORY: Admits to cough shortness of breath GASTROINTESTINAL: Denies abdominal pain or distention. Denies nausea, vomiting , or diarrhea. Denies blood in vomitus, stools, or per rectum. Denies black, tarry stools. Denies constipation. GENITOURINARY: Denies difficulty urinating, painful urination, burning, frequency, blood in urine, or discharge. MUSCULOSKELETAL: Denies back or neck pain or stiffness. Denies joint pain or swelling. SKIN: Denies rash, lesions or sores. HEMATOLOGIC : Denies easy bruising or bleeding. LYMPHATIC: Denies swollen, enlarged glands. NEUROLOGICAL: Denies confusion or altered mental status. Denies passing out or loss of consciousness. Denies dizziness or lightheadedness. Denies headache. Denies weakness or paralysis or loss of use of either side. Denies problems with gait or speech. Denies sensory loss, numbness, or tingling. Denies seizures. PSYCHIATRIC: Denies anxiety or stress. Denies depression, suicidal ideation, or homicidal ideation. ALL OTHER SYSTEMS REVIEWED AND NEGATIVE. Dictation was performed using [employer] voice recognition software PHYSICAL EXAMINATION: GENERAL: Well-appearing, well-nourished and in no acute distress. HEAD: Atraumatic, normocephalic. EYES: Pupils equal round and reactive to light, extraocular movements intact, sclera anicteric, conjunctiva are normal. ENT: Nares patent, oropharynx clear without exudates. Moist mucous membranes. NECK: Normal range of motion, supple without lymphadenopathy LUNGS: Breath sounds clear to auscultation bilaterally and equal. No wheezes rales or rhonchi. HEART: Tachycardic ABDOMEN: Soft, nontender, nondistended abdomen. No guarding, no rebound. No masses appreciated. Musculoskeletal: Normal range of motion, no pitting or edema. No cyanosis. NEUROLOGICAL: Cranial nerves grossly intact. Normal speech, normal gait. Normal sensory, motor exams PSYCH: Normal mood, normal affect. SKIN: Warm, Dry, normal turgor, no rashes or lesions noted. Physical Exam - Vital signs Vitals: Temp Pulse Resp BP Pulse Ox 98.4 F 63 20 137/75 H 92 01/10/18 09:26 01/10/18 09:26 01/10/18 09:26 01/10/18 09:26 01/10/18 09:26 Course - Re-evaluation Re-evalutation: 01/10/18 10:27 Patient last received chemotherapy 2 weeks ago, he is on a maintenance chemo by his oncologist daily, he does not appear to be in any distress is satting 95% he is noted to be tachycardic however, CTAs are pending - Vital Signs Vital signs: Temp Pulse Resp BP Pulse Ox 98.4 F 63 20 137/75 H 92 01/10/18 09:26 01/10/18 09:26 01/10/18 09:26 01/10/18 09:26 01/10/18 09:26
[2018-01-10 11:05] LABS: ABSOLUTE EOSINOPHILS # (AUTO) 0.2 10^3/uL (0.0-0.6); ABSOLUTE LYMPHOCYTES (AUTO) 0.9 10^3/uL (0.5-4.7); ABSOLUTE MONOCYTES (AUTO) 1.1 10^3/uL (0.1-1.4); ABSOLUTE NEUT (AUTO) 4.5 10^3/uL (1.7-8.2); BASOPHILS % (AUTO) 0.2 % (0-2); EOSINOPHILS % (AUTO) 3.6 % (0-6); HEMATOCRIT 33.3 % (37.9-51.0); HEMOGLOBIN 11.1 g/dL (13.5-17.0); LYMPHOCYTES % (AUTO) 12.7 % (13-45); MEAN CORPUSCULAR HEMOGLOBIN 32.8 pg (27.0-33.4); MEAN CORPUSCULAR HGB CONC 33.4 g/dL (32.0-36.0); MEAN CORPUSCULAR VOLUME 98 fl (80-97); MONOCYTES % (AUTO) 16.8 % (3-13); PLATELET COUNT 223 10^3/uL (150-450); RED CELL DISTRIBUTION WIDTH 17.6 % (11.5-14.0); SEGMENTED NEUTROPHILS % (AUTO) 66.7 % (42-78); TOTAL CELLS COUNTED % (AUTO) 100 %; WHITE BLOOD COUNT 6.8 10^3/uL (4.0-10.5)
[2018-01-10 11:16] LABS: ALANINE AMINOTRANSFERASE 43 U/L (21-72); ALBUMIN 2.8 g/dL (3.5-5.0); ALKALINE PHOSPHATASE 86 U/L (38-126); ANION GAP 13 (5-19); ASPARTATE AMINO TRANSFERASE 40 U/L (17-59); BILIRUBIN,DIRECT 0.3 mg/dL (0.0-0.4); BILIRUBIN,TOTAL 0.3 mg/dL (0.2-1.3); BLOOD UREA NITROGEN 21 mg/dL (7-20); CARBON DIOXIDE 26 mmol/L (22-30); CHLORIDE 100 mmol/L (98-107); CREATINE KINASE 31 U/L (55-170); GLUCOSE 110 mg/dL (75-110); POTASSIUM 4.7 mmol/L (3.6-5.0); SODIUM 138.9 mmol/L (137-145); TOTAL PROTEIN 5.7 g/dL (6.3-8.2)
[2018-01-10 11:26] LABS: CREATINE KINASE MB 0.77 ng/mL (<4.55)
[2018-01-10 11:31] LABS: TROPONIN I 0.048 ng/mL
--- NOTE | 2018-01-10 13:08 | RADIOLOGY REPORT (SQ) ---
EXAM DESCRIPTION: CTA CHEST COMPLETED DATE/TIME: 01/10/2018 12:19 pm REASON FOR STUDY: lung ca, sob COMPARISON: 11/10/2017 TECHNIQUE: CT scan of the chest performed using helical scanning technique with dynamic intravenous contrast injection. Images reviewed with lung, soft tissue and bone windows. Reconstructed coronal and sagittal MPR images reviewed. Additional 3 dimensional post-processing performed to develop Maximal Intensity Projection images ([place] P). All images stored on PACS. All CT scanners at this facility use dose modulation, iterative reconstruction, and/or weight based d osing when appropriate to reduce radiation dose to as low as reasonably achievable (ALARA). [facility]: Dose Right [facility]: CareDose [facility]: Dose Right [facility]: Teradose 4D [facility]: [employer] CONTRAST TYPE AND DOSE: contrast/concentration: Isovue 370.00 mg/ml; Total Contrast Delivered: 50.0 ml; Total Saline Delivered: 70.1 ml Contrast bolus optimized for the pulmonary arteries. Not diagnostic for the aorta. RENAL FUNCTION: Creatinine 0.99 RADIATION DOSE: 24.03 . LIMITATIONS: There is suboptimal opacification of the pulmonary arteries. FINDINGS: LUNGS AND PLEURA: There is partial re-expansion of the right middle lobe as compared to th e previous study. There is a masslike density within the partially re-expanded right middle lobe saranya suring 3.8 x 2.1 cm in diameters presumably representing atelectatic changes or pneumonic consolidati on however the possibility of an underlying mass cannot be excluded and further followup is recommend ed. The previously described right lower lobe pleural base nodule appears unchanged. There has been interval increase in size of the previously described small right pleural effusion with a moderate r ight pleural effusion being identified on the current study. No left pleural effusion is identified. There has been interval development of fairly diffuse interstitial changes in the left upper lobe. The differential possibilities would include interstitial edema, interstitial pneumonitis, or lympha ngitic spread of tumor. Clinical correlation is recommended. AORTA AND GREAT VESSELS: The previously described mediastinal adenopathy appears essentially unchange d. The previously described narrowing of the simple airways on the right appear unchanged. The prev iously described thickening of the peribronchial soft tissues on the right appear unchanged. HEART: No pericardial effusion. No significant coronary artery calcifications. PULMONARY ARTERIES: No emboli visualized in the main pulmonary arteries or the segmental branches. HILAR AND MEDIASTINAL STRUCTURES: No identified masses or abnormal nodes. HARDWARE: None in the chest. UPPER ABDOMEN: See results under abdominal CT scan THYROID AND OTHER SOFT TISSUES: No masses. No adenopathy. BONES: No acute or significant finding. 3D MIPS: Confirm above findings. OTHER: No other significant finding. IMPRESSION: Partial re-expansion of the right middle lobe as compared to the previous study. There is masslike density within the partially re- mailroom messenger in right middle lobe as noted above presumably representing atelectatic changes or pneumonic consolidation however the possibility of an underlying mass cannot be excluded and further followup is recommended. The previously described right lower lo be pleural-based nodule appears unchanged. Interval increase in size of the right pleural effusion w ith a moderate size right pleural effusion being identified on the current study. Interval developme nt of fairly diffuse interstitial changes in the left upper lobe with differential possibilities incl uding interstitial edema, interstitial pneumonitis, or lymphangitic spread of tumor. Clinical correl ation is recommended. Other findings as noted above COMMENT: Quality ID # 436: Final reports with documentation of one or more dose reduction techniques (e.g., Automated exposure control, adjustment of the mA and/or kV according to patient size, use of iterative reconstruction technique) TECHNICAL DOCUMENTATION: JOB ID: [id number] [employer]- All Rights Reserved Reading location - IP/workstation name: [email or web address]
--- NOTE | 2018-01-10 13:31 | RADIOLOGY REPORT (SQ) ---
EXAM DESCRIPTION: CTA ABDOMEN/PELVIS W WO COMPLETED DATE/TIME: 01/10/2018 12:19 pm REASON FOR STUDY: lung ca COMPARISON: 09/29/2017 TECHNIQUE: CT scan of the abdominal aorta extending to the iliac bifurcation performed with intraven ous contrast using helical scanning technique with dynamic intravenous contrast injection. Images rev iewed with lung, soft tissue, and bone windows. Reconstructed coronal and sagittal MPR images reviewe d. All images stored on PACS. Advanced 3D imaging as volume rendering, MIPS, SSD performed? No All CT scanners at this facility use dose modulation, iterative reconstruction, and/or weight based d osing when appropriate to reduce radiation dose to as low as reasonably achievable (ALARA). [facility]: Dose Right [facility]: CareDose [facility]: Dose Right [facility]: Teradose 4D [facility]: [employer] CONTRAST TYPE AND DOSE: 50 mL Isovue 370 RENAL FUNCTION: Creatinine 0.99 LIMITATIONS: None. FINDINGS: POST-CONTRAST IMAGING: AORTA AND VESSELS: No aneurysm. No dissection. Renal arteries, SMA, celiac without stenosis. LUNG BASES: See results under chest CT scan LIVER: Normal size. No masses or dilated ducts. SPLEEN: Normal size. No focal lesions. PANCREAS: No masses. Pancreatic calcifications are again identified. No adjacent inflammation or per ipancreatic fluid collections. Again there is some prominence of the pancreatic duct. GALLBLADDER: No identified stones by CT criteria. No inflammatory changes to suggest cholecystitis. ADRENAL GLANDS: The previously described left adrenal nodule appears unchanged. RIGHT KIDNEY AND URETER: No mass, calculi or urinary tract obstruction. LEFT KIDNEY AND URETER: No mass, calculi or urinary tract obstruction. Left renal cyst appears stabl e. RETROPERITONEUM: No retroperitoneal adenopathy, hemorrhage or masses. BOWEL AND PERITONEAL CAVITY: No masses or inflammatory changes. No free fluid or peritoneal masses. APPENDIX: Normal. ABDOMINAL WALL: No masses. No hernias. BONY STRUCTURES: No significant or acute findings. Degenerative changes are again identified in the lumbar spine OTHER: Prostatic radiotherapy seeds are again identified IMPRESSION: No evidence for intra-abdominopelvic metastatic disease. Other findings as noted above TECHNICAL DOCUMENTATION: JOB ID: [id number] Quality ID # [id number]: Final reports with documentation of one or more dose reduction techniques (e.g., Au tomated exposure control, adjustment of the mA and/or kV according to patient size, use of iterative reconstruction technique) 2010 [employer]- All Rights Reserved Reading location - IP/workstation name: [email or web address]
[2018-01-10] MEDS ORDERED: LEVOFLOXACIN 750 MG/D5W RTU 750 MG/150 ML RTUPB IV ONE (15:42)
[2018-01-10] MEDS ORDERED: ALBUTEROL SULFATE 0.083% NEB 2.5 MG/3 ML AMPUL NEB PRN (17:04)
[2018-01-10] MEDS ORDERED: ZOLPIDEM TARTRATE 5 MG TABLET PO PRN (17:04)
[2018-01-10] MEDS ORDERED: ONDANSETRON HCL INJ/PF 4 MG/2 ML SDV IV PRN (17:04)
[2018-01-10] MEDS ORDERED: ACETAMINOPHEN 325 MG TABLET PO PRN (17:04)
[2018-01-10] MEDS ORDERED: MAGNESIUM HYDROXIDE SUSP 30 ML UDCUP PO PRN (17:04)
[2018-01-10] MEDS ORDERED: OXYCODONE-ACETAMINOPHEN 5-325 MG TABLET PO PRN (17:04)
--- NOTE | 2018-01-10 17:21 | PDOC H&P ---
History of Present Illness Admission Date/PCP: 01/10/18 16:15 JULITO MCNEILL MD Patient complains of: Shortness of breath History of Present Illness: PAULINE SMITH is a [address] scan shows masslike density in the right middle lobe with interval increase in the size of the right pleural effusion there is fairly diffuse interstitial changes in the left upper lobe with differential diagnoses including interstitial edema, interstitial pneumonitis or lymphangitic spread of tumor. Attempts were made by the ER physician to schedule outpatient thoracentesis but it appears that this time that this is not feasible so patient is being admitted for the evaluation and management. Patient initially presented to the emergency room with complaints of difficulty breathing and shortness of breath. Patient was not initially hypoxemic in the emergency room however while still there he was found to be hypoxemic with his room air oxygen in the low 80s. As such patient is being admitted for thoracentesis and further management acute hypoxemic respiratory failure acute hypoxemic he has history of lung cancer that is currently treated with chemotherapy. His last chemo was about 2 weeks ago. Past Medical History Cardiac Medical History: Reports: Hypertension Denies: Atrial Fibrillation, Congestive Heart Failure, Coronary Artery Disease, Myocardial Infarction, Hyperlipidema, Peripheral Vascular Disease, Pulmonary Embolism, Heart Murmur Pulmonary Medical History: Reports: Chronic Obstructive Pulmonary Disease (COPD) Denies: Asthma, Bronchitis, Pneumonia, Respiratory Failure, Sleep Apnea, Tuberculosis Neurological Medical History: Denies: Seizures Endocrine Medical History: Reports: Diabetes Mellitus Type 2 Denies: Hyperthyroidism, Hypothyroidism Renal/ Medical History: Denies: End Stage Renal Disease Malignancy Medical History: Reports: Lung Cancer Denies: Breast Cancer, Cervical Cancer, Leukemia, Ovarian Cancer GI Medical History: Reports: Gastroesophageal Reflux Disease, Hiatal Hernia Denies: Crohn's Disease Musculoskeltal Medical History: Denies: Arthritis, Fibromyalgia Psychiatric Medical History: Denies: Bipolar Disorder, Dementia, Depression, Post Traumatic Stress Disorder Hematology: Reports: Anemia Denies: Hemophilia, Sickle Cell Disease Infectious Medical History: Denies: HIV Past Surgical History Past Surgical History: Reports: Other - Colectomy because of large polyps, 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 Denies: Appendectomy, Cholecystectomy, Colostomy, Coronary Artery Bypass Graft, Gastric Bypass Surgery, Herniorrhaphy, Pacemaker, Tonsillectomy Social History Information Source: Patient Smoking Status: Former Smoker Frequency of Alcohol Use: Occasional Hx Recreational Drug Use: No Drugs: None Hx Prescription Drug Abuse: Yes - HCTZ - Advance Directive Resuscitation Status: Full Code Family History Family History: Reviewed & Not Pertinent, Hypertension, Malignancy Parental Family History Reviewed: Yes Children Family History Reviewed: Yes Sibling(s) Family History Reviewed.: Yes Medication/Allergy Home Medications: Empagliflozin [Jardiance] 10 mg PO DAILY 08/08/17 Lisinopril [Zestril] 30 mg PO DAILY 08/08/17 Multivit-Min/FA/Lycopen/Lutein [Centrum Silver Men Tablet] 1 each PO DAILY 08/08 Omeprazole 40 mg PO DAILY 08/08/17 Silodosin [Rapaflo] 8 mg PO PRN PRN 08/08/17 Folic Acid 0.4 mg PO DAILY 08/28/17 Furosemide [Lasix 20 mg Tablet] 20 mg PO DAILY 08/28/17 Ondansetron HCl [Zofran 8 mg Tablet] 1 tab PO PRN PRN 08/28/17 Oxycodone HCl/Acetaminophen [Percocet 5-325 mg Tablet] 1 tab PO ASDIR PRN #15 tab 08/28/17 Potassium 10 mg PO DAILY 08/28/17 Promethazine HCl [Phenergan] 1 tab PO PRN PRN 08/28/17 Zolpidem Tartrate [Ambien 5 mg Tablet] 5 mg PO PRN PRN 08/28/17 Levofloxacin [Levaquin 750 mg Tablet] 750 mg PO DAILY #5 tablet 01/10/18 Allergies/Adverse Reactions: Penicillins Allergy (Unknown, Verified 08/09/17 14:58) unknown tamsulosin [From Flomax] Allergy (Unknown, Verified 08/09/17 14:58) UNKNOWN Physical Exam Vital Signs: Temp Pulse Resp BP Pulse Ox 98.4 F 63 9 L 128/76 H 94 01/10/18 09:26 01/10/18 09:26 01/10/18 17:01 01/10/18 17:01 01/10/18 17:01 General appearance: PRESENT: no acute distress Head exam: PRESENT: atraumatic Eye exam: PRESENT: conjunctival injection Ear exam: PRESENT: normal external ear exam Neck exam: ABSENT: carotid bruit, JVD, lymphadenopathy, thyromegaly Respiratory exam: PRESENT: decreased breath sounds, rhonchi, tachypnea. ABSENT : wheezes Cardiovascular exam: PRESENT: RRR. ABSENT: diastolic murmur, rubs, systolic murmur Pulses: PRESENT: normal dorsalis pedis pul GI/Abdominal exam: PRESENT: normal bowel sounds, soft. ABSENT: distended, guarding, mass, organolmegaly, rebound, tenderness Rectal exam: PRESENT: deferred Musculoskeletal exam: PRESENT: ambulatory Neurological exam: PRESENT: alert, awake, oriented to person, oriented to place , oriented to time Skin exam: PRESENT: dry, intact, warm. ABSENT: cyanosis, rash Results Laboratory Results: Laboratory 01/10/18 01/10/18 01/10/18 10:30 10:30 10:30 WBC 6.8 RBC 3.40 L Hgb 11.1 L Hct 33.3 L MCV 98 H MCH 32.8 MCHC 33.4 RDW 17.6 H Plt Count 223 Seg Neutrophils % 66.7 Lymphocytes % 12.7 L Monocytes % 16.8 H Eosinophils % 3.6 Basophils % 0.2 Absolute Neutrophils 4.5 Absolute Lymphocytes 0.9 Absolute Monocytes 1.1 Absolute Eosinophils 0.2 Absolute Basophils 0.0 Sodium 138.9 Potassium 4.7 Chloride 100 Carbon Dioxide 26 Anion Gap 13 BUN 21 H Creatinine 0.99 Est GFR ( Amer) > 60 Est GFR (Non-Af Amer) > 60 Glucose 110 Calcium 9.0 Total Bilirubin 0.3 Direct Bilirubin 0.3 Neonat Total Bilirubin Not Reportable Neonat Direct Bilirubin Not Reportable Neonat Indirect Bili Not Reportable AST 40 ALT 43 Alkaline Phosphatase 86 Creatine Kinase 31 L CK-MB (CK-2) 0.77 Troponin I 0.048 Total Protein 5.7 L Albumin 2.8 L Impressions: Abdomen/Pelvis CTA 01/10/18 09:40 IMPRESSION: No evidence for intra-abdominopelvic metastatic disease. Other findings as noted above Chest/Abdomen CTA 01/10/18 09:40 IMPRESSION: Partial re-expansion of the right middle lobe as compared to the previous study. There is masslike density within the partially re- business planner in right middle lobe as noted above presumably representing atelectatic changes or pneumonic consolidation however the possibility of an underlying mass cannot be excluded and further followup is recommended. The previously described right lower lobe pleural-based nodule appears unchanged. Interval increase in size of the right pleural effusion with a moderate size right pleural effusion being identified on the current study. Interval development of fairly diffuse interstitial changes in the left upper lobe with differential possibilities including interstitial edema, interstitial pneumonitis, or lymphangitic spread of tumor. Clinical correlation is recommended. Other findings as noted above Assessment & Plan - Diagnosis (1) Acute hypoxemic respiratory failure Is this a current diagnosis for this admission?: Yes Plan: Secondary to underlying pleural effusion plan is for thoracentesis in a.m. (2) Lung cancer Qualifiers: Laterality: right Lung location: middle lobe of lung Qualified Code(s): C34.2 - Malignant neoplasm of middle lobe, bronchus or lung Is this a current diagnosis for this admission?: Yes Plan: Probably leading to malignant effusion above although there is a possibility of a parapneumonic effusion. Plan is for patient to follow-up with oncologist at discharge (3) Pleural effusion Is this a current diagnosis for this admission?: Yes Plan: Likely malignant possibly parapneumonic for thoracentesis in a.m. (4) Pneumonia Qualifiers: Pneumonia type: due to unspecified organism Laterality: right Lung location: upper lobe of lung Qualified Code(s): J18.1 - Lobar pneumonia, unspecified organism (5) Hypertension Qualifiers: Hypertension type: essential hypertension Is this a current diagnosis for this admission?: Yes Plan: Continue lisinopril - Time Time Spent: 30 to 50 Minutes Medications reviewed and adjusted accordingly: Yes Anticipated discharge: Home Within: within 48 hours - Inpatient Certification Based on my medical assessment, after consideration of the patient's comorbidities, presenting symptoms, or acuity I expect that the services needed warrant INPATIENT care.: Yes I certify that my determination is in accordance with my understanding of Medicare's requirements for reasonable and necessary INPATIENT services [42 CFR 412.3e].: Yes Medical Necessity: Need Close Monitoring Due to Risk of Patient Decompensation, Risk of Complication if Not Cared For in Hospital
[2018-01-10] MEDS: IPRATROPIUM/ALBUTEROL 0.5-2.5 MG/3 ML AMPUL NEB SCH (20:30)
[2018-01-11] MEDS: IPRATROPIUM/ALBUTEROL 0.5-2.5 MG/3 ML AMPUL NEB SCH ×3 (02:31→14:03)
[2018-01-11 05:44] LABS: INTERNATIONAL RATION (INR) 1.21; PROTHROMBIN TIME 15.9 SEC (11.4-15.4)
--- NOTE | 2018-01-11 08:17 | PDOC CONSULTATION ---
Consultation Consult Date: 01/11/18 Attending physician:: AMADEO MCKEON Consult reason:: Stage IV lung ca here w/ SOB/GUAJARDO, hypoxia, R pleural effusion History of Present Illness Admission Date/PCP: 01/10/18 16:15 JULITO MCNEILL MD Patient complains of: SOB/GUAJARDO History of Present Illness: PAULINE SMITH is a 67 year old male with known history of stage IV lung cancer, he originally had right middle lobe lung cancer with associated right pleural effusion, thus stage IV disease, patient had diagnosis now about 6 months ago, at that time he came with a large right pleural effusion, thoracentesis was done and cytology indicated adenocarcinoma consistent with lung primary, he was given initial course of chemotherapy with carboplatin/ Alimta/Avastin, he had 4 cycles of that and then transition to maintenance Alimta/Avastin, he has now had about 3-4 cycles of that maintenance therapy, and he was due for restaging imaging tomorrow. However over the last 48 hours prior to admission he began having worsening shortness of breath, cough, ultimately he felt like he could not breathe and he presented to the ED, upon presentation his O2 sat was 82-85% on room air, he was placed on 2 L of oxygen and that improved to 95%. He had CTA of the chest abdomen pelvis, CT of the abdomen pelvis did not show any distant disease, CT of the chest indicated that the right pleural effusion had now returned, after the initial thoracentesis and then subsequent chemotherapy, and had mostly resolved. In addition, there was initial right middle lobe collapse, but now the middle lobe had expanded, but there was still 3-4 cm area of consolidation, it was felt this might be the primary tumor. Otherwise, he is doing generally well, energy level has been better since admission. He is planned for thoracentesis today, and thereafter we will need to set up home O2 for him. Past Medical History Cardiac Medical History: Reports: Hypertension Denies: Atrial Fibrillation, Congestive Heart Failure, Coronary Artery Disease, Myocardial Infarction, Hyperlipidema, Peripheral Vascular Disease, Pulmonary Embolism, Heart Murmur Pulmonary Medical History: Reports: Chronic Obstructive Pulmonary Disease (COPD) Denies: Asthma, Bronchitis, Pneumonia, Respiratory Failure, Sleep Apnea, Tuberculosis Neurological Medical History: Denies: Seizures Endocrine Medical History: Reports: Diabetes Mellitus Type 2 Denies: Hyperthyroidism, Hypothyroidism Renal/ Medical History: Denies: End Stage Renal Disease Malignancy Medical History: Reports: Lung Cancer Denies: Breast Cancer, Cervical Cancer, Leukemia, Ovarian Cancer GI Medical History: Reports: Gastroesophageal Reflux Disease, Hiatal Hernia Denies: Crohn's Disease Musculoskeltal Medical History: Denies: Arthritis, Fibromyalgia Psychiatric Medical History: Denies: Bipolar Disorder, Dementia, Depression, Post Traumatic Stress Disorder Hematology: Reports: Anemia Denies: Hemophilia, Sickle Cell Disease Infectious Medical History: Denies: HIV Past Surgical History Past Surgical History: Reports: Other - Colectomy because of large polyps, 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 Denies: Appendectomy, Cholecystectomy, Colostomy, Coronary Artery Bypass Graft, Gastric Bypass Surgery, Herniorrhaphy, Pacemaker, Tonsillectomy Social History Information Source: Patient Smoking Status: Former Smoker Cigarettes Packs Per Day: 1 Number of Years Smokin Frequency of Alcohol Use: Occasional Hx Recreational Drug Use: No Drugs: None Hx Prescription Drug Abuse: No - Advance Directive Resuscitation Status: Full Code Family History Family History: Reviewed & Not Pertinent, Hypertension, Malignancy Parental Family History Reviewed: Yes Children Family History Reviewed: Yes Sibling(s) Family History Reviewed.: Yes Medication/Allergy Home Medications: Omeprazole 40 mg PO DAILY 08/08/17 Silodosin [Rapaflo] 8 mg PO DAILY 08/08/17 Folic Acid [Folvite 1 mg Tablet] 1 mg PO DAILY 01/10/18 Lisinopril [Prinivil 10 mg Tablet] 10 mg PO DAILY 01/10/18 Allergies/Adverse Reactions: Penicillins Allergy (Unknown, Verified 01/10/18 18:08) unknown tamsulosin [From Flomax] Allergy (Unknown, Verified 01/10/18 18:08) UNKNOWN Review of Systems Constitutional: PRESENT: fatigue Cardiovascular: PRESENT: dyspnea on exertion Respiratory: PRESENT: cough, dyspnea Gastrointestinal: ABSENT: abdominal pain, constipation, diarrhea, hematemesis, hematochezia, nausea, vomiting Musculoskeletal: ABSENT: joint swelling Neurological: ABSENT: abnormal gait, abnormal speech, confusion, dizziness, focal weakness, syncope Psychiatric: ABSENT: anxiety, depression, homidical ideation, suicidal ideation Endocrine: ABSENT: cold intolerance, heat intolerance, polydipsia, polyuria Physical Exam Vital Signs: Temp Pulse Resp BP Pulse Ox 98.3 F 104 H 14 115/61 98 01/10/18 23:31 01/11/18 03:49 01/10/18 23:31 01/10/18 23:31 01/11/18 03:49 Intake & Output 01/10/18 01/11/18 01/12/18 06:59 06:59 06:59 Intake Total 325 Balance 325 Weight 66.3 kg General appearance: PRESENT: no acute distress, well-developed, well-nourished Head exam: PRESENT: atraumatic, normocephalic Eye exam: PRESENT: conjunctiva pink, EOMI, PERRLA. ABSENT: scleral icterus Ear exam: PRESENT: normal external ear exam Mouth exam: PRESENT: moist, tongue midline Neck exam: ABSENT: carotid bruit, JVD, lymphadenopathy, thyromegaly Respiratory exam: PRESENT: crackles - Right lung base, decreased breath sounds right lung. ABSENT: wheezes Cardiovascular exam: PRESENT: RRR. ABSENT: diastolic murmur, rubs, systolic murmur Pulses: PRESENT: normal dorsalis pedis pul Vascular exam: PRESENT: normal capillary refill GI/Abdominal exam: PRESENT: normal bowel sounds, soft. ABSENT: distended, guarding, mass, organolmegaly, rebound, tenderness Rectal exam: PRESENT: deferred Extremities exam: PRESENT: full ROM. ABSENT: calf tenderness, clubbing, pedal edema Neurological exam: PRESENT: alert, awake, oriented to person, oriented to place , oriented to time, oriented to situation, CN II-XII grossly intact. ABSENT: motor sensory deficit Psychiatric exam: PRESENT: appropriate affect, normal mood. ABSENT: homicidal ideation, suicidal ideation Skin exam: PRESENT: dry, intact, warm. ABSENT: cyanosis, rash Results Impressions: Abdomen/Pelvis CTA 01/10/18 09:40 IMPRESSION: No evidence for intra-abdominopelvic metastatic disease. Other findings as noted above Chest/Abdomen CTA 01/10/18 09:40 IMPRESSION: Partial re-expansion of the right middle lobe as compared to the previous study. There is masslike density within the partially re- minister assistant in right middle lobe as noted above presumably representing atelectatic changes or pneumonic consolidation however the possibility of an underlying mass cannot be excluded and further followup is recommended. The previously described right lower lobe pleural-based nodule appears unchanged. Interval increase in size of the right pleural effusion with a moderate size right pleural effusion being identified on the current study. Interval development of fairly diffuse interstitial changes in the left upper lobe with differential possibilities including interstitial edema, interstitial pneumonitis, or lymphangitic spread of tumor. Clinical correlation is recommended. Other findings as noted above Status: Image reviewed by me Assessment & Plan - Diagnosis (1) Primary cancer of right middle lobe of lung Is this a current diagnosis for this admission?: Yes Plan: Known right lung cancer, with associated pleural effusion, there has been progression of disease with recurrent right pleural effusion, today we had a long discussion about this, we spent greater than 70 minutes in discussion, we discussed that this would constitute progression, we discussed possible clinical trial as an outpatient, we will discuss that further next week when we see him back. We went over the images at length, he understands next course of action. (2) Pleural effusion Is this a current diagnosis for this admission?: Yes Plan: Malignant pleural effusion, plan for thoracentesis with cytology. (3) Pneumonia Qualifiers: Pneumonia type: due to unspecified organism Laterality: right Lung location: middle lobe of lung Qualified Code(s): J18.1 - Lobar pneumonia, unspecified organism Is this a current diagnosis for this admission?: Yes Plan: Possible pneumonia as well, the consolidation in the right middle lobe could constitute this along with a possible parapneumonic effusion although more likely to be a malignant pleural effusion. Agree with antibiotic course. (4) Hypoxemia Is this a current diagnosis for this admission?: Yes Plan: Probably related in part to the pleural effusion, but also related to COPD, we will get home O2 for him. - Time Time Spent: Greater than 70 Minutes - Inpatient Certification Based on my medical assessment, after consideration of the patient's comorbidities, presenting symptoms, or acuity I expect that the services needed warrant INPATIENT care.: Yes I certify that my determination is in accordance with my understanding of Medicare's requirements for reasonable and necessary INPATIENT services [42 CFR 412.3e].: Yes Medical Necessity: Need Close Monitoring Due to Risk of Patient Decompensation, Need For Continuous Telemetry Monitoring, Need for Surgery, Risk of Complication if Not Cared For in Hospital
[2018-01-11] MEDS ORDERED: ONDANSETRON HCL INJ/PF 4 MG/2 ML SDV IV PRN (09:00)
[2018-01-11] MEDS ORDERED: LIDOCAINE 1% INJ-PF (10 MG/ML) 30 ML SDV ONE (10:24)
--- NOTE | 2018-01-11 11:20 | RADIOLOGY REPORT (SQ) ---
EXAM DESCRIPTION: CHEST SINGLE VIEW COMPLETED DATE/TIME: 01/11/2018 11:12 am REASON FOR STUDY: S/P RT THORACENTESIS COMPARISON: CT dated 01/10/2018. Chest x-ray dated 08/09/2017. EXAM PARAMETERS: NUMBER OF VIEWS: One view. TECHNIQUE: Single frontal radiographic view of the chest acquired. RADIATION DOSE: NA LIMITATIONS: None. FINDINGS: LUNGS AND PLEURA: No pneumothorax following thoracentesis. No large pleural effusion. Le ft lung clear. MEDIASTINUM AND HILAR STRUCTURES: No masses. Contour normal. HEART AND VASCULAR STRUCTURES: Heart normal in size. Normal vasculature. BONES: No acute findings. HARDWARE: Vascular access port. OTHER: No other significant finding. IMPRESSION: NO PNEUMOTHORAX FOLLOWING THORACENTESIS. TECHNICAL DOCUMENTATION: JOB ID: [id number] [employer]- All Rights Reserved Reading location - IP/workstation name: [email or web address]
[2018-01-11 12:17] LABS: FLUID APPEARANCE SLIGHTLY HAZY; FLUID COLOR LIGHT YELLOW; FLUID TYPE PLEURAL; FLUID VISCOSITY LIQUID
--- NOTE | 2018-01-11 12:31 | RADIOLOGY REPORT (SQ) ---
EXAM DESCRIPTION: U/S THORACENTESIS WITH IMAGING COMPLETED DATE/TIME: 01/11/2018 11:34 am REASON FOR STUDY: right sided effusion COMPARISON: None. LIMITATIONS: None. PROCEDURE: Procedure, risks, benefit, and alternative explained to patient who then gave written con sent. The posterior right chest wall was marked using ultrasound guidance. A time-out was called fo r correct marking verification. Chest prepped and draped using sterile technique. Local anesthesia a chieved using 5 ml of 1% lidocaine injection. A 6fr Safe-T- Centesis set was introduced into the rig ht pleural space. Fluid was aspirated. The catheter was removed and the entry site was covered with sterile bandage. No immediate complications noted. Images acquired during the procedure were stored on PACS. FINDINGS: ENTRY SITE: Posterior right chest. FLUID VOLUME: 700 mL FLUID ANALYSIS: Straw-colored. OTHER: Fluid sent to the lab for testing. IMPRESSION: SUCCESSFUL THORACENTESIS USING ULTRASOUND GUIDANCE. COMMENT: Patient medication list reviewed: Yes- Quality ID# [id number]:Eligible professional attests to doc umenting in the medical record they obtained, updated, or reviewed the patient's current medications. TECHNICAL DOCUMENTATION: JOB ID: [id number] [employer]- All Rights Reserved Reading location - IP/workstation name: [email or web address]
--- NOTE | 2018-01-11 13:31 | RADIOLOGY REPORT (SQ) ---
EXAM DESCRIPTION: CHEST SINGLE VIEW COMPLETED DATE/TIME: 01/11/2018 1:24 pm REASON FOR STUDY: 2 HOURS S/P RT THORACENTESIS COMPARISON: 01/13/2018 at 1107 hours. EXAM PARAMETERS: NUMBER OF VIEWS: One view. TECHNIQUE: Single frontal radiographic view of the chest acquired. RADIATION DOSE: NA LIMITATIONS: None. FINDINGS: LUNGS AND PLEURA: Stable. No pneumothorax 2 hours after thoracentesis. MEDIASTINUM AND HILAR STRUCTURES: No masses. Contour normal. HEART AND VASCULAR STRUCTURES: Heart normal in size. Normal vasculature. BONES: No acute findings. HARDWARE: Vascular access port. OTHER: No other significant finding. IMPRESSION: STABLE APPEARANCE OF THE CHEST. NO PNEUMOTHORAX 2 HOURS AFTER THORACENTESIS. TECHNICAL DOCUMENTATION: JOB ID: [id number] [employer]- All Rights Reserved Reading location - IP/workstation name: [email or web address]
[2018-01-11 13:41] VITALS: BP 128/65
--- NOTE | 2018-01-11 14:36 | PDOC DISCHARGE SUMMARY ---
General - Admit/Disc Date/PCP Admission Date/Primary Care Provider: 01/10/18 16:15 JULITO MCNEILL MD Discharge Date: 01/11/18 - Discharge Diagnosis (1) Acute hypoxemic respiratory failure Is this a current diagnosis for this admission?: Yes (2) Lung cancer Is this a current diagnosis for this admission?: Yes (3) Pleural effusion Is this a current diagnosis for this admission?: Yes (4) Pneumonia Is this a current diagnosis for this admission?: Yes (5) Hypertension Is this a current diagnosis for this admission?: Yes - Additional Information Resuscitation Status: Full Code Discharge Diet: As Tolerated Discharge Activity: Activity As Tolerated Prescriptions: Levofloxacin [Levaquin 750 mg Tablet] 750 mg PO DAILY #5 tablet Home Medications: Omeprazole 40 mg PO DAILY 08/08/17 Silodosin [Rapaflo] 8 mg PO DAILY 08/08/17 Folic Acid [Folvite 1 mg Tablet] 1 mg PO DAILY 01/10/18 Lisinopril [Prinivil 10 mg Tablet] 10 mg PO DAILY 01/10/18 Levofloxacin [Levaquin 750 mg Tablet] 750 mg PO DAILY #5 tablet 01/11/18 History of Present Illness History of Present Illness: PAULINE SMITH is a [address] scan shows masslike density in the right middle lobe with interval increase in the size of the right pleural effusion there is fairly diffuse interstitial changes in the left upper lobe with differential diagnoses including interstitial edema, interstitial pneumonitis or lymphangitic spread of tumor. Hospital Course Hospital Course: Patient was admitted with right-sided pleural effusion status post thoracentesis today. He was found to be hypoxemic in the emergency room and after 2 L of oxygen his saturation improved to 95%. It is felt that patient will benefit from oxygen use at home. Patient is feeling better status post thoracentesis and at this time the plan is to arrange home oxygen and discharge him home. Pleural fluid analysis reveals a predominant lymphocytosis with total white blood cell of about 1000. He is on empiric antibiotic due to a questionable pneumonia and is is felt that this may be a parapneumonic effusion or of course secondary to underlying lung cancer. At this time with patient improved clinically with no further interventions been planned and discharged home on home oxygen. Physical Exam Vital Signs: Temp Pulse Resp BP Pulse Ox 97.5 F 120 H 16 128/65 H 95 01/11/18 12:47 01/11/18 12:47 01/11/18 12:47 01/11/18 12:47 01/11/18 12:47 Intake & Output 01/10/18 01/11/18 01/12/18 06:59 06:59 06:59 Intake Total 325 0 Balance 325 0 Weight 66.3 kg General appearance: PRESENT: no acute distress Head exam: PRESENT: atraumatic Mouth exam: PRESENT: moist, tongue midline Neck exam: ABSENT: carotid bruit, JVD, lymphadenopathy, thyromegaly Respiratory exam: PRESENT: accessory muscle use, crackles, decreased breath sounds, rales, rhonchi, unlabored GI/Abdominal exam: PRESENT: normal bowel sounds, soft. ABSENT: distended, guarding, mass, organolmegaly, rebound, tenderness Rectal exam: PRESENT: deferred Extremities exam: PRESENT: full ROM. ABSENT: calf tenderness, clubbing, pedal edema Musculoskeletal exam: PRESENT: ambulatory Neurological exam: PRESENT: alert, awake, oriented to person, oriented to place , oriented to time Results Laboratory Results: 01/11/18 10:50 Fluid Type PLEURAL Fluid Source Fluid Color LIGHT YELLOW Fluid Appearance SLIGHTLY HAZY Fluid Viscosity LIQUID Fluid WBC 1095 Fluid RBC 95 Impressions: Abdomen/Pelvis CTA 01/10/18 09:40 IMPRESSION: No evidence for intra-abdominopelvic metastatic disease. Other findings as noted above Chest/Abdomen CTA 01/10/18 09:40 IMPRESSION: Partial re-expansion of the right middle lobe as compared to the previous study. There is masslike density within the partially re- grease remover in right middle lobe as noted above presumably representing atelectatic changes or pneumonic consolidation however the possibility of an underlying mass cannot be excluded and further followup is recommended. The previously described right lower lobe pleural-based nodule appears unchanged. Interval increase in size of the right pleural effusion with a moderate size right pleural effusion being identified on the current study. Interval development of fairly diffuse interstitial changes in the left upper lobe with differential possibilities including interstitial edema, interstitial pneumonitis, or lymphangitic spread of tumor. Clinical correlation is recommended. Other findings as noted above Chest X-Ray 01/11/18 00:00 IMPRESSION: STABLE APPEARANCE OF THE CHEST. NO PNEUMOTHORAX 2 HOURS AFTER THORACENTESIS. Thoracentesis Ultrasound 01/11/18 15:39 IMPRESSION: SUCCESSFUL THORACENTESIS USING ULTRASOUND GUIDANCE. Qualifiers - * PATIENT BEING DISCHARGED WITH ANY OF THE FOLLOWING DIAGNOSIS: No Plan Time Spent: Less than 30 Minutes
[2018-01-11] MEDS ORDERED: LEVOFLOXACIN 750 MG/D5W RTU 750 MG/150 ML RTUPB IV SCH ×2 (15:00→18:00)
== END 2018-01-11 17:35 | disposition home or self-care (01) | DRG 180 ==
LOC: ER 09:13 → EH 16:15 → 4W 18:39
PROVIDERS: ADMIT Family Medicine; ATTEND Family Medicine
PROC: 0W993ZX Drainage of Right Pleural Cavity, Percutaneous Approach, Diagnostic (ICD-10-PCS; principal; 2018-01-11)
DX: C34.2 Malignant neoplasm of middle lobe, bronchus or lung (principal); J18.1 Lobar pneumonia, unspecified organism; J96.01 Acute respiratory failure with hypoxia; J91.0 Malignant pleural effusion; I10 Essential (primary) hypertension; J44.9 Chronic obstructive pulmonary disease, unspecified; E11.9 Type 2 diabetes mellitus without complications; K21.9 Gastro-esophageal reflux disease without esophagitis; Z88.0 Allergy status to penicillin; Z88.8 Allergy status to other drugs, medicaments and biological substances; Z79.899 Other long term (current) drug therapy; Z90.49 Acquired absence of other specified parts of digestive tract; Z82.49 Family history of ischemic heart disease and other diseases of the circulatory system; Z80.9 Family history of malignant neoplasm, unspecified; Z87.19 Personal history of other diseases of the digestive system; Z87.891 Personal history of nicotine dependence; Z99.81 Dependence on supplemental oxygen
CPT/HCPCS: 32555; 36415; 71045; 71275; 74174; 80053; 82550; 82553; 82945; 84157; 84484; 85025; 85610; 87015; 87040; 87070; 87075; 87116; 87205; 87206; 88305; 88341; 88342; 89050; 94640; 99291; 99292; J1956; J3490; J7620

== ENCOUNTER → 2018-04-10 | Outpatient (CLI) | payer MEDICARE, BC ==
--- NOTE | 2018-04-10 14:14 | RADIOLOGY REPORT (SQ) ---
EXAM DESCRIPTION: CHEST 2 VIEWS COMPLETED DATE/TIME: 04/10/2018 12:53 pm REASON FOR STUDY: SOB (R06.02) R06.02 SHORTNESS OF BREATH COMPARISON: 01/11/2018 NUMBER OF VIEWS: Two view TECHNIQUE: Frontal and lateral radiographic images of the chest acquired. LIMITATIONS: None. FINDINGS: LUNGS AND PLEURA: Increasing airspace opacity in the mid right lung lateral to chronic pos tsurgical/ radiation change. Left lung is clear. MEDIASTINUM AND HILAR STRUCTURES: Stable heart size and mediastinal structures. HEART AND VASCULAR STRUCTURES: Stable appearance. SUPPORT DEVICES: Appropriate location without change. BONES: No acute findings. OTHER: No other significant finding. IMPRESSION: Atelectasis or early pneumonia in the right lung. There is a background of postsurgical and radiation change. TECHNICAL DOCUMENTATION: JOB ID: [id number] [employer]- All Rights Reserved Reading location - IP/workstation name: [email or web address]
== END ==
LOC: RAD 12:43
PROVIDERS: ATTEND Internal Medicine
DX: R06.02 Shortness of breath (principal)
CPT/HCPCS: 71046

== ENCOUNTER → 2018-04-12 | Outpatient (CLI) | payer MEDICARE, BC ==
--- NOTE | 2018-04-12 10:32 | RADIOLOGY REPORT (SQ) ---
EXAM DESCRIPTION: CT HEAD COMBO COMPLETED DATE/TIME: 04/12/2018 8:41 am REASON FOR STUDY: LUNG CA C34.2 MALIGNANT NEOPLASM OF MIDDLE LOBE, BRONCHUS OR LUNG COMPARISON: None. TECHNIQUE: Axial images acquired through the brain without and with intravenous contrast. Images re viewed with bone, brain and subdural windows. Additional sagittal and coronal reconstructions were g enerated. Images stored on PACS. All CT scanners at this facility use dose modulation, iterative reconstruction, and/or weight based d osing when appropriate to reduce radiation dose to as low as reasonably achievable (ALARA). [facility]: Dose Right [facility]: CareDose [facility]: Dose Right [facility]: Teradose 4D [facility]: Playviews CONTRAST TYPE AND DOSE: 77 mL Isovue 370- low osmolar. RENAL FUNCTION: BUN 24 creatinine 0.8. RADIATION DOSE: CT Rad equipment meets quality standard of care and radiation dose reduction techniq ues were employed. CTDIvol: 48.6 mGy. DLP: 905 mGy-cm.. LIMITATIONS: None. FINDINGS: VENTRICLES: Normal size and contour. CEREBRUM: No masses. No hemorrhage. No midline shift. Normal lino/white matter differentiation. No ev idence for acute infarction. No enhancing lesions. CEREBELLUM: No masses. No hemorrhage. No alteration of density. No evidence for acute infarction. No enhancing lesions. EXTRA-AXIAL SPACES: No fluid collections. No enhancing lesions. ORBITS AND GLOBE: No intra- or extraconal masses. Normal contour of globe without masses. CALVARIUM: No fracture. PARANASAL SINUSES: No fluid or mucosal thickening. SOFT TISSUES: No mass or hematoma. OTHER: No other significant finding. IMPRESSION: NORMAL BRAIN CT WITHOUT AND WITH CONTRAST. EVIDENCE OF ACUTE STROKE: NO. TECHNICAL DOCUMENTATION: JOB ID: [id number] Quality ID # [id number]: Final reports with documentation of one or more dose reduction techniques (e.g., Au tomated exposure control, adjustment of the mA and/or kV according to patient size, use of iterative reconstruction technique) 2010 [employer]- All Rights Reserved Reading location - IP/workstation name: [email or web address]
--- NOTE | 2018-04-12 10:39 | RADIOLOGY REPORT (SQ) ---
EXAM DESCRIPTION: CT SOFT TISSUE NECK WITH COMPLETED DATE/TIME: 04/12/2018 8:41 am REASON FOR STUDY: LUNG CA C34.2 MALIGNANT NEOPLASM OF MIDDLE LOBE, BRONCHUS OR LUNG COMPARISON: None. TECHNIQUE: Post IV contrasted scanning from skull base through lung apices with review of bone, soft tissue and lung windows. Reconstructed coronal and sagittal MPR images reviewed. All images stored on PACS. All CT scanners at this facility use dose modulation, iterative reconstruction, and/or weight based d osing when appropriate to reduce radiation dose to as low as reasonably achievable (ALARA). [facility]: Dose Right [facility]: CareDose [facility]: Dose Right [facility]: Teradose 4D [facility]: [employer]@ [employer] CONTRAST TYPE AND DOSE: 77 mL Isovue 370- low osmolar. RENAL FUNCTION: BUN 24 creatinine 0.8. RADIATION DOSE: . LIMITATIONS: None. FINDINGS: SKULL BASE: Intact. MAJOR SALIVARY GLANDS: No solid or cystic masses. No inflammatory changes. LYMPHADENOPATHY: No adenopathy. MUCOSAL MASSES OR ASYMMETRY: No mucosal masses or asymmetry. LARYNX/CORDS: No abnormal findings. VASCULAR STRUCTURES: The major vessels are patent. LUNG APICES: See the separate report of the CT of the chest. BONES: Intact. THYROID: Normal size. No masses. PARANASAL SINUSES: Clear. OTHER: No other significant finding. IMPRESSION: NO SIGNIFICANT FINDING IN THE SOFT TISSUES OF THE NECK. TECHNICAL DOCUMENTATION: JOB ID: [id number] Quality ID # [id number]: Final reports with documentation of one or more dose reduction techniques (e.g., Au tomated exposure control, adjustment of the mA and/or kV according to patient size, use of iterative reconstruction technique) 2010 [employer]- All Rights Reserved Reading location - IP/workstation name: [email or web address]
--- NOTE | 2018-04-12 12:37 | RADIOLOGY REPORT (SQ) ---
EXAM DESCRIPTION: CT CHEST WITH COMPLETED DATE/TIME: 04/12/2018 8:41 am REASON FOR STUDY: LUNG CA C34.2 MALIGNANT NEOPLASM OF MIDDLE LOBE, BRONCHUS OR LUNG COMPARISON: 01/10/2018, 11/10/2017, and 09/29/2017. TECHNIQUE: CT scan of the chest performed using helical scanning technique with dynamic intravenous contrast injection. Images reviewed with lung, soft tissue and bone windows. Reconstructed coronal and sagittal MPR images reviewed. All images stored on PACS. All CT scanners at this facility use dose modulation, iterative reconstruction, and/or weight based d osing when appropriate to reduce radiation dose to as low as reasonably achievable (ALARA). [facility]: Dose Right [facility]: CareDose [facility]: Dose Right [facility]: Teradose 4D [facility]: [employer] CONTRAST TYPE AND DOSE: 77 mL Isovue 370- low osmolar. RENAL FUNCTION: BUN 24 creatinine 0.8. RADIATION DOSE: . LIMITATIONS: None. FINDINGS: LUNGS AND PLEURA: Moderate right pleural effusion unchanged. Subpleural nodule in the rig ht lower lobe appears slightly larger with the main component measuring 1 cm. There is worsening air space disease in the right middle lobe with developing collapse. Nodular airspace disease peripheral ly. Previously seen narrowing of the right-sided airways and peribronchial soft tissue thickening ag ain noted and probably unchanged. The left lung is relatively clear. HILAR AND MEDIASTINAL STRUCTURES: Previously seen prevascular lymph node, adjacent to the aortic arch , is larger. Current measurements are 1.1 x 2.2 cm and the measurement on the prior CT was 0.7 x 1.7 cm. Precarinal lymph node appears slightly larger. Current measurement 1.9 cm with prior measureme nt 1.6 cm. HEART AND VASCULAR STRUCTURES: No aneurysm or dissection. No central pulmonary emboli. No pericardi al effusion. HARDWARE: Vascular access port. UPPER ABDOMEN: See separate report of the CT of the abdomen. THYROID AND OTHER SOFT TISSUES: No masses. No adenopathy. BONES: No significant finding. OTHER: No other significant finding. IMPRESSION: 1. ATELECTASIS/COLLAPSE OF THE RIGHT MIDDLE LOBE HAS REDEVELOPED SINCE THE PREVIOUS STUDY WITH SCATTE RED NODULAR AIRSPACE DISEASE PERIPHERALLY. POSSIBLE ETIOLOGIES INCLUDE AREAS OF ATELECTASIS, INFECTI ON, OR SPREAD OF TUMOR WITH DEVELOPING SATELLITE NODULES/METASTASES. 2. NODULE IN THE LATERAL SUBPLEURAL RIGHT LOWER LOBE APPEARS MORE DISCRETE AND LARGER COMPARED TO THE PRIOR STUDIES. 3. MODERATE RIGHT PLEURAL EFFUSION, UNCHANGED. 4. MEDIASTINAL ADENOPATHY HAS WORSENED SLIGHTLY SINCE THE PRIOR STUDY. TECHNICAL DOCUMENTATION: JOB ID: [id number] Quality ID # [id number]: Final reports with documentation of one or more dose reduction techniques (e.g., Au tomated exposure control, adjustment of the mA and/or kV according to patient size, use of iterative reconstruction technique) 2010 [employer]- All Rights Reserved Reading location - IP/workstation name: [facility]
--- NOTE | 2018-04-12 12:43 | RADIOLOGY REPORT (SQ) ---
EXAM DESCRIPTION: CT ABD/PELVIS WITH IV ONLY COMPLETED DATE/TIME: 04/12/2018 8:41 am REASON FOR STUDY: LUNG CA C34.2 MALIGNANT NEOPLASM OF MIDDLE LOBE, BRONCHUS OR LUNG COMPARISON: 11/10/2017 and 09/29/2017. TECHNIQUE: CT scan of the abdomen and pelvis performed using helical scanning technique with dynamic intravenous contrast injection. No oral contrast. Images reviewed with lung, soft tissue, and bone windows. Reconstructed coronal and sagittal MPR images reviewed. Delayed images for evaluation of the urinary system also acquired. All images stored on PACS. All CT scanners at this facility use dose modulation, iterative reconstruction, and/or weight based d osing when appropriate to reduce radiation dose to as low as reasonably achievable (ALARA). [facility]: Dose Right [facility]: CareDose [facility]: Dose Right [facility]: Teradose 4D [facility]: [employer] CONTRAST TYPE AND DOSE: contrast/concentration: Isovue 370.00 mg/ml; Total Contrast Delivered: 77.0 ml; Total Saline Delivered: 67.0 ml RENAL FUNCTION: BUN 24 creatinine 0.8. RADIATION DOSE: . LIMITATIONS: None. FINDINGS: LOWER CHEST: See separate report of the CT of the chest. LIVER: Normal size. No masses. No dilated ducts. SPLEEN: Normal size. No focal lesions. PANCREAS: No masses. No significant calcifications. No adjacent inflammation or peripancreatic fluid collections. Pancreatic duct not dilated. GALLBLADDER: No identified stones by CT criteria. No inflammatory changes to suggest cholecystitis. ADRENAL GLANDS: Heterogenous mass in the left adrenal gland which is slightly larger. Current measur ements 2.2 x 2.6 cm with prior measurement 2.1 x 2.1 cm. RIGHT KIDNEY AND URETER: No solid masses. Vascular calcifications. Small nonobstructing calyceal c alculi. No hydronephrosis or hydroureter. LEFT KIDNEY AND URETER: Cortical cyst. No solid masses. Vascular calcifications. No hydronephros is or hydroureter. AORTA AND VESSELS: No aneurysm. No dissection. Renal arteries, SMA, celiac without stenosis. RETROPERITONEUM: No retroperitoneal adenopathy, hemorrhage or masses. BOWEL AND PERITONEAL CAVITY: No masses or inflammatory changes. No free fluid or peritoneal masses. APPENDIX: Normal. PELVIS: No mass. No free fluid. Normal bladder. Radiotherapy implants in the prostate. ABDOMINAL WALL: No masses. No hernias. BONES: No significant or acute findings. Degenerative changes in the spine. OTHER: No other significant finding. IMPRESSION: 1. PREVIOUSLY SEEN MASS IN THE LEFT ADRENAL GLAND IS SLIGHTLY LARGER. 2. CORTICAL CYST IN THE LEFT KIDNEY. NONOBSTRUCTING CALYCEAL CALCULI IN THE RIGHT KIDNEY. 3. RADIOTHERAPY IMPLANTS IN THE PROSTATE. 4. NO OTHER SIGNIFICANT FINDINGS IN THE ABDOMEN OR PELVIS. TECHNICAL DOCUMENTATION: JOB ID: [id number] Quality ID # [id number]: Final reports with documentation of one or more dose reduction techniques (e.g., Au tomated exposure control, adjustment of the mA and/or kV according to patient size, use of iterative reconstruction technique) 2010 [employer]- All Rights Reserved Reading location - IP/workstation name: [email or web address]
== END ==
LOC: RAD 07:52
PROVIDERS: ATTEND Internal Medicine
DX: C34.2 Malignant neoplasm of middle lobe, bronchus or lung (principal)
CPT/HCPCS: 70470; 70491; 71260; 74177

== ENCOUNTER 2018-05-03 13:09 | Inpatient (IN) | payer MEDICARE, BC ==
[2018-05-03] MEDS ORDERED: BUDESONIDE NEB 0.5 MG/2 ML AMPUL NEB ONE (13:26)
[2018-05-03] MEDS ORDERED: IPRATROPIUM/ALBUTEROL 0.5-2.5 MG/3 ML AMPUL NEB ONE (13:27)
--- NOTE | 2018-05-03 13:38 | ER Document Report ---
ED Respiratory Problem - General Chief Complaint: Shortness Of Breath Stated Complaint: DIFFICULTY BREATHING Time Seen by Provider: 05/03/18 13:36 Notes: 67-year-old male to emergency department chief complaint shortness of breath. Patient was stage IV lung cancer on the right lung. Followed by Dr. Graves with oncology. States that he recently took a trip to [place]. Was seen in the emergency department there. Diagnosed with bronchitis. Was placed on a steroid Dosepak but no antibiotics. Continues to have worsening shortness of breath. Has had large pleural effusions in the past. TRAVEL OUTSIDE OF THE [place] IN LAST 30 DAYS: No - Related Data Allergies/Adverse Reactions: Penicillins Allergy (Unknown, Verified 05/03/18 13:13) unknown tamsulosin [From Flomax] Allergy (Unknown, Verified 05/03/18 13:13) UNKNOWN Past Medical History - General Information source: Patient - Social History Smoking Status: Former Smoker Frequency of alcohol use: None Drug Abuse: None Lives with: Spouse/Significant other Family History: Reviewed & Not Pertinent, Hypertension, Malignancy - Past Medical History Cardiac Medical History: Reports: Hx Hypertension Denies: Hx Atrial Fibrillation, Hx Congestive Heart Failure, Hx Coronary Artery Disease, Hx Heart Attack, Hx Hypercholesterolemia, Hx Peripheral Vascular Disease, Hx Pulmonary Embolism, Hx Heart Murmur Pulmonary Medical History: Reports: Hx COPD Denies: Hx Asthma, Hx Bronchitis, Hx Pneumonia, Hx Respiratory Failure, Hx Sleep Apnea, Hx Tuberculosis Neurological Medical History: Denies: Hx Cerebrovascular Accident, Hx Seizures Endocrine Medical History: Reports: Hx Diabetes Mellitus Type 2. Denies: Hx Graves' Disease, Hx Hyperthyroidism, Hx Hypothyroidism Renal/ Medical History: Denies: Hx Benign Prostatic Hyperplasia, Hx End Stage Renal Disease, Hx Kidney Stones, Hx Peritoneal Dialysis Malignancy Medical History: Denies Hx Leukemia, Reports Hx Lung Cancer GI Medical History: Reports: Hx Gastroesophageal Reflux Disease, Hx Hiatal Hernia. 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 Denies: Hx Appendectomy, Hx Bowel Surgery, Hx Cholecystectomy, Hx Colostomy, Hx Coronary Artery Bypass Graft, Hx Gastric Bypass Surgery, Hx Herniorrhaphy, Hx Pacemaker, Hx Tonsillectomy - Immunizations Hx Diphtheria, Pertussis, Tetanus Vaccination: No Review of Systems - Review of Systems Notes: Constitutional: denies: Chills, Diaphoresis, Fever, Malaise, Weakness EENT: denies: Eye discharge, Blurred vision, Tearing, Double vision, Nose congestion, Nose discharge, Throat swelling, Mouth pain Cardiovascular: denies: Palpitations, Heart racing, Orthopnea, Chest pain Respiratory: with significant shortness of breath and cough, wheezing, dyspnea on exertion and history of lung cancer Gastrointestinal: denies: Abdominal pain, Diarrhea, Nausea, Vomiting, Black stools, bright red blood in stool Genitourinary: denies: Burning, Dysuria, Discharge, Frequency, Flank pain, Hematuria Musculoskeletal: denies: Joint pain, Joint swelling, Muscle pain, Muscle stiffness, back pain Hematologic/Lymphatic: denies: Anemia, Easy bleeding, Easy bruising, Blood clots Neurological/Psychological: denies: Confusion, Dementia, Depression, Loss of consciousness Skin: No lesions, no masses, no skin breakdown, no abscesses Physical Exam - Vital signs Vitals: Temp Pulse BP Pulse Ox 97.8 F 53 L 152/74 H 89 L 05/03/18 13:14 05/03/18 13:14 05/03/18 13:14 05/03/18 13:14 Interpretation: Tachycardic - General General appearance: Appears well, Alert - HEENT Head: Normocephalic, Atraumatic Eyes: Normal Pupils: PERRL - Respiratory Respiratory status: No respiratory distress Chest status: Nontender Breath sounds: Nonproductive cough, Rales, Wheezing Chest palpation: Normal - Cardiovascular Rhythm: Tachycardia Heart sounds: Normal auscultation Murmur: No - Abdominal Inspection: Normal Distension: No distension Bowel sounds: Normal Tenderness: Nontender Organomegaly: No organomegaly - Back Back: Normal, Nontender - Extremities General upper extremity: Normal inspection, Nontender, Normal color, Normal ROM , Normal temperature. No: Edema General lower extremity: Normal inspection, Nontender, Normal color, Normal ROM , Normal temperature, Normal weight bearing. No: Edema, Kwan's sign - Neurological Neuro grossly intact: Yes Cognition: Normal Orientation: AAOx4 Charlee Coma Scale Eye Opening: Spontaneous Charlee Coma Scale Verbal: Oriented Charlee Coma Scale Motor: Obeys Commands Charlee Coma Scale Total: 15 Speech: Normal Motor strength normal: LUE, RUE, LLE, RLE Sensory: Normal - Psychological Associated symptoms: Normal affect, Normal mood - Skin Skin Temperature: Warm Skin Moisture: Dry Skin Color: Normal Course - Re-evaluation Re-evalutation: 05/03/18 14:35 Patient with stage IV lung cancer and dyspnea. Recent long trip. Worsening shortness of breath. History of pleural effusions requiring thoracentesis. Recent CT scan approximately 4 weeks ago. Chest x-ray looks worse looking like he has an upper lobe collapse. At this time will order CT scan. Breathing treatments ordered. Will consult with oncologist shortly. 05/03/18 16:36 I did speak with patient's oncologist. There appears to be atelectasis of the right upper and middle lobe. May need bronchoscopy. He is recommending we speak with Dr. Myers to see if we can potentially admit to the ICU and have a bronchoscopy done. There are no local facilities that have immediate beds. Patient is resting comfortably at this time. Multiple breathing treatments have been given. Currently patient heart rate is 95. Oxygen levels 93% with a blood pressure 157/93. 05/03/18 17:45 At this time will try to see about admitting the patient to this hospital. Dr. Myers will see. We will start him on some acetylcysteine nebulizers to help break up the mucus plugging. This may or may not work. Actually patient does not even want to be admitted but is insisting that he stay. Will admit at this time for further treatment. 05/03/18 17:49 At this time the hospitalist is going to see the patient we will admit him at this hospital. Patient is comfortable with this plan. Patient is a DO NOT RESUSCITATE. - Vital Signs Vital signs: Temp Pulse Resp BP Pulse Ox 97.8 F 53 L 24 H 158/81 H 94 05/03/18 13:14 05/03/18 13:14 05/03/18 17:06 05/03/18 17:06 05/03/18 17:06 - Laboratory Result Diagrams: 05/03/18 13:38 08/16/18 13:38 Laboratory results interpreted by me: 05/03/18 05/03/18 13:38 13:38 RBC 4.06 L Hgb 11.6 L Hct 35.3 L RDW 17.8 H Lymphocytes % 9.6 L Direct Bilirubin 0.5 H ALT 20 L Total Protein 6.0 L Albumin 3.0 L - EKG Interpretation by Me EKG shows normal: Sinus rhythm, Cutler, Intervals, QRS Complexes, ST-T Waves Critical Care Note - Critical Care Note Total time excluding time spent on procedures (mins): 60 Comments: Hypoxia, consultation with specialists Discharge - Discharge Clinical Impression: Atelectasis of right lung Metastatic primary lung cancer Qualifiers: Laterality: right Qualified Code(s): C34.91 - Malignant neoplasm of unspecified part of right bronchus or lung Condition: Fair Disposition: ADMITTED INPATIENT Admitting Provider: Dorian Moran Unit Admitted: IMCU Referrals: ORLANDO MORGAN MD [ACTIVE STAFF] - Follow up as needed
[2018-05-03 13:53] LABS: VENOUS BLOOD BASE EXCESS 3.2 mmol/L; VENOUS BLOOD HCO3 29.2 mmol/L (20-32); VENOUS BLOOD PH 7.38 (7.30-7.42)
[2018-05-03 13:56] LABS: ABSOLUTE EOSINOPHILS # (AUTO) 0.2 10^3/uL (0.0-0.6); ABSOLUTE LYMPHOCYTES (AUTO) 0.6 10^3/uL (0.5-4.7); ABSOLUTE MONOCYTES (AUTO) 0.6 10^3/uL (0.1-1.4); ABSOLUTE NEUT (AUTO) 5.2 10^3/uL (1.7-8.2); BASOPHILS % (AUTO) 0.7 % (0-2); EOSINOPHILS % (AUTO) 3.2 % (0-6); HEMATOCRIT 35.3 % (37.9-51.0); HEMOGLOBIN 11.6 g/dL (13.5-17.0); LYMPHOCYTES % (AUTO) 9.6 % (13-45); MEAN CORPUSCULAR HEMOGLOBIN 28.6 pg (27.0-33.4); MEAN CORPUSCULAR HGB CONC 32.9 g/dL (32.0-36.0); MEAN CORPUSCULAR VOLUME 87 fl (80-97); MONOCYTES % (AUTO) 9.2 % (3-13); PLATELET COUNT 181 10^3/uL (150-450); RED BLOOD COUNT 4.06 10^6/uL (4.35-5.55); RED CELL DISTRIBUTION WIDTH 17.8 % (11.5-14.0); SEGMENTED NEUTROPHILS % (AUTO) 77.3 % (42-78); TOTAL CELLS COUNTED % (AUTO) 100 %; WHITE BLOOD COUNT 6.7 10^3/uL (4.0-10.5)
[2018-05-03 14:00] LABS: INTERNATIONAL RATION (INR) 1.14; PROTHROMBIN TIME 15.2 SEC (11.4-15.4)
[2018-05-03 14:13] LABS: ALANINE AMINOTRANSFERASE 20 U/L (21-72); ALKALINE PHOSPHATASE 62 U/L (38-126); ANION GAP 8 (5-19); ASPARTATE AMINO TRANSFERASE 20 U/L (17-59); BILIRUBIN,DIRECT 0.5 mg/dL (0.0-0.4); BILIRUBIN,TOTAL 0.8 mg/dL (0.2-1.3); BLOOD UREA NITROGEN 18 mg/dL (7-20); CALCIUM 8.7 mg/dL (8.4-10.2); CARBON DIOXIDE 27 mmol/L (22-30); CHLORIDE 103 mmol/L (98-107); GLUCOSE 89 mg/dL (75-110); POTASSIUM 4.3 mmol/L (3.6-5.0); SODIUM 138.2 mmol/L (137-145)
--- NOTE | 2018-05-03 14:54 | RADIOLOGY REPORT (SQ) ---
EXAM DESCRIPTION: CHEST SINGLE VIEW COMPLETED DATE/TIME: 05/03/2018 2:31 pm REASON FOR STUDY: sob COMPARISON: 04/10/2018 EXAM PARAMETERS: NUMBER OF VIEWS: One view. TECHNIQUE: Single frontal radiographic view of the chest acquired. RADIATION DOSE: NA LIMITATIONS: None. FINDINGS: LUNGS AND PLEURA: Significant interval change with opacification of the right apex, 5.5 cm in thickness. Increase confluent opacity in the right hilus. Similar volume loss -chronic scarring in the right lung base. Similar mild chronic interstitial changes bilaterally. Small left pleural effusion. HEART AND VASCULAR STRUCTURES: Stable. BONES: No acute findings. HARDWARE: Right chest port. OTHER: No other significant finding. IMPRESSION: Significant interval change with opacification of the right apex, 5.5 cm in thickness. Increase confluent opacity in the right hilus. Similar volume loss -chronic scarring in the right victorina g base. Similar mild chronic interstitial changes bilaterally. Small left pleural effusion. TECHNICAL DOCUMENTATION: JOB ID: [id number] [employer]- All Rights Reserved Reading location - IP/workstation name: [email or web address]
--- NOTE | 2018-05-03 15:27 | RADIOLOGY REPORT (SQ) ---
EXAM DESCRIPTION: CTA CHEST COMPLETED DATE/TIME: 05/03/2018 3:02 pm REASON FOR STUDY: SOB COMPARISON: 01/10/2018 chest x-ray 05/03/2018 TECHNIQUE: CT scan of the chest performed using helical scanning technique with dynamic intravenous contrast injection. Images reviewed with lung, soft tissue and bone windows. Reconstructed coronal and sagittal MPR images reviewed. Additional 3 dimensional post-processing performed to develop Maximal Intensity Projection images ([place] P). All images stored on PACS. All CT scanners at this facility use dose modulation, iterative reconstruction, and/or weight based d osing when appropriate to reduce radiation dose to as low as reasonably achievable (ALARA). [facility]: Dose Right [facility]: CareDose [facility]: Dose Right [facility]: Teradose 4D [facility]: [employer] CONTRAST TYPE AND DOSE: contrast/concentration: Isovue 350.00 mg/ml; Total Contrast Delivered: 67.0 ml; Total Saline Delivered: 80.0 ml Contrast bolus optimized for the pulmonary arteries. Not diagnostic for the aorta. RENAL FUNCTION: BUN 18 creatinine 0.9 RADIATION DOSE: CT Rad equipment meets quality standard of care and radiation dose reduction techniq ues were employed. CTDIvol: 14.8 - 16.5 mGy. DLP: 549 mGy-cm. . LIMITATIONS: None. FINDINGS: LUNGS AND PLEURA: There is marked opacification in right upper hemithorax. There is 12 mm nodular density in the right lower lobe on image 54 that becomes confluent with somewhat linear opac ification. Small bilateral pleural effusions are present. AORTA AND GREAT VESSELS: No aneurysm. Contrast bolus not optimized for the aorta. HEART: Pericardial effusion. Moderate to marked coronary artery calcifications. PULMONARY ARTERIES: No emboli visualized in the main pulmonary arteries or the segmental branches. HILAR AND MEDIASTINAL STRUCTURES: Mediastinal adenopathy is seen. There is a large note adjacent to the aortic arch that measures 17 mm in short axis diameter. There are some smaller mediastinal nodes . There is left hilar adenopathy. There is the suggestion of a right hilar mass or adenopathy. HARDWARE: Injection port on the right. UPPER ABDOMEN: Large left adrenal mass. THYROID AND OTHER SOFT TISSUES: No significant abnormality. BONES: No acute or significant finding. 3D MIPS: Confirm above findings. OTHER: No other significant finding. IMPRESSION: 1. There is no evidence of pulmonary emboli. 2. There is opacification in the right upper hemithorax. This likely represents atelectasis of the right middle lobe and upper lobe. 3. Mediastinal and left hilar adenopathy. 4. Opacification in the right hilum concerning for neoplasm or adenopathy. 5. Right pulmonary nodule with adjacent linear opacification possibly representing satellite lesions . 6. Bilateral pleural effusions. 7. Large left adrenal mass. COMMENT: Quality ID # [id number]: Final reports with documentation of one or more dose reduction techniques (e.g., Automated exposure control, adjustment of the mA and/or kV according to patient size, use of iterative reconstruction technique) TECHNICAL DOCUMENTATION: JOB ID: [id number] [employer]- All Rights Reserved Reading location - IP/workstation name: [email or web address]
[2018-05-03] MEDS ORDERED: ALBUTEROL SULFATE 0.083% NEB 2.5 MG/3 ML AMPUL NEB ONE ×3 (15:56→17:53)
[2018-05-03] MEDS ORDERED: ACETYLCYSTEINE 10% NEB 400 MG/4 ML VIAL NEB ONE (17:24)
[2018-05-03] MEDS ORDERED: NORMAL SALINE 1000 ML 1,000 ML IV ONE (17:46)
--- NOTE | 2018-05-03 19:41 | PDOC H&P ---
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 Patient does have mild shortness of breath at baseline. He says that he has been having progressive shortness of breath in the past week and this got worse in the past 2-3 days. He does complain moderately productive cough with frothy sputum. He denies fever or chills. He is also having poor oral intake at home. In the ER, CT showed increasing opacification of the right upper lobe. Patient is also noted to be hypoxic at high 80s to low 90s on room air. Past Medical History Cardiac Medical History: Reports: Hypertension Denies: Atrial Fibrillation, Congestive Heart Failure, Coronary Artery Disease, Myocardial Infarction, Hyperlipidema, Peripheral Vascular Disease, Pulmonary Embolism, Heart Murmur Pulmonary Medical History: Reports: Chronic Obstructive Pulmonary Disease (COPD) Denies: Asthma, Bronchitis, Pneumonia, Respiratory Failure, Sleep Apnea, Tuberculosis Neurological Medical History: Denies: Seizures Endocrine Medical History: Reports: Diabetes Mellitus Type 2 Denies: Hyperthyroidism, Hypothyroidism Renal/ Medical History: Denies: End Stage Renal Disease Malignancy Medical History: Reports: Lung Cancer Denies: Breast Cancer, Cervical Cancer, Leukemia, Ovarian Cancer GI Medical History: Reports: Gastroesophageal Reflux Disease, Hiatal Hernia Denies: Crohn's Disease Musculoskeltal Medical History: Denies: Arthritis, Fibromyalgia Psychiatric Medical History: Denies: Bipolar Disorder, Dementia, Depression, Post Traumatic Stress Disorder Hematology: Reports: Anemia Denies: Hemophilia, Sickle Cell Disease Infectious Medical History: Denies: HIV Past Surgical History Past Surgical History: Reports: Other - Colectomy because of large polyps, 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 Denies: Appendectomy, Cholecystectomy, Colostomy, Coronary Artery Bypass Graft, Gastric Bypass Surgery, Herniorrhaphy, Pacemaker, Tonsillectomy Social History Lives with: Spouse/Significant other Smoking Status: Former Smoker Frequency of Alcohol Use: Occasional Hx Recreational Drug Use: No Drugs: None Hx Prescription Drug Abuse: No Family History Family History: Reviewed & Not Pertinent, Hypertension, Malignancy Parental Family History Reviewed: Yes - Hodgkin's lymphoma and patient's father Children Family History Reviewed: No Sibling(s) Family History Reviewed.: No Medication/Allergy Home Medications: Albuterol Sulfate [Ventolin Hfa] 2 puff IH Q4HP PRN 05/03/18 Alfuzosin HCl [Alfuzosin HCl ER] 10 mg PO DAILY 05/03/18 Cholecalciferol (Vitamin D3) [Vitamin D3 1000 Unit Tablet] 1,000 unit PO DAILY 05/03/18 Fish Oil/Borage/Flax/Om3,6,9 1 [[place] 3-6-9 1,200 mg Softgel] 1 cap PO DAILY Folic Acid [Folvite 1 mg Tablet] 1 mg PO DAILY 05/03/18 Glucosamine Sulfate Dipot Chlr [Glucosamine] 1,000 mg PO DAILY 05/03/18 Multivitamin [Tab-A-J Luis] 1 tab PO DAILY 05/03/18 Omeprazole 40 mg PO DAILY 05/03/18 Allergies/Adverse Reactions: Penicillins Allergy (Unknown, Verified 05/03/18 13:13) unknown tamsulosin [From Flomax] Allergy (Unknown, Verified 05/03/18 13:13) UNKNOWN Review of Systems All systems: reviewed and no additional remarkable complaints except as stated - As mentioned in HPI Physical Exam Vital Signs: Temp Pulse Resp BP Pulse Ox 97.8 F 53 L 19 160/77 H 93 05/03/18 13:14 05/03/18 13:14 05/03/18 18:01 05/03/18 18:01 05/03/18 18:01 General appearance: PRESENT: mild distress Head exam: PRESENT: atraumatic, normocephalic Eye exam: PRESENT: conjunctiva pink, EOMI, PERRLA. ABSENT: scleral icterus Ear exam: PRESENT: normal external ear exam Neck exam: ABSENT: carotid bruit, JVD, lymphadenopathy, thyromegaly Respiratory exam: PRESENT: rhonchi, wheezes - Bilateral wheezing and rhonchi present in both lung lindo Cardiovascular exam: PRESENT: RRR. ABSENT: diastolic murmur, rubs, systolic murmur Pulses: PRESENT: normal dorsalis pedis pul GI/Abdominal exam: PRESENT: normal bowel sounds, soft. ABSENT: distended, guarding, mass, organolmegaly, rebound, tenderness Rectal exam: PRESENT: deferred Neurological exam: PRESENT: alert, awake, oriented to person, oriented to place , oriented to time, oriented to situation, CN II-XII grossly intact. ABSENT: motor sensory deficit Results Impressions: Chest X-Ray 05/03/18 13:37 IMPRESSION: Significant interval change with opacification of the right apex, 5.5 cm in thickness. Increase confluent opacity in the right hilus. Similar volume loss -chronic scarring in the right lung base. Similar mild chronic interstitial changes bilaterally. Small left pleural effusion. Chest/Abdomen CTA 05/03/18 14:33 IMPRESSION: 1. There is no evidence of pulmonary emboli. 2. There is opacification in the right upper hemithorax. This likely represents atelectasis of the right middle lobe and upper lobe. 3. Mediastinal and left hilar adenopathy. 4. Opacification in the right hilum concerning for neoplasm or adenopathy. 5. Right pulmonary nodule with adjacent linear opacification possibly representing satellite lesions. 6. Bilateral pleural effusions. 7. Large left adrenal mass. Assessment & Plan - Diagnosis (1) Acute hypoxemic respiratory failure Is this a current diagnosis for this admission?: Yes Plan: Acute hypoxemic respiratory failure secondary to metastatic lung cancer and possible postobstructive pneumonia. Dr. Myers was consulted from the ER. He does not deem patient will definitively benefit from bronchoscopy. Risk and benefits of bronchoscopy in the patient's contacts was also discussed with patient and who did verbalize that they would rather continue medical/ conservative treatments. Patient is saturating at 93% on 2 L nasal cannula. We rediscussed CODE STATUS and patient is a DNR/DNI. (2) Obstructive pneumonia Is this a current diagnosis for this admission?: Yes Plan: Patient will be started on Levaquin for possible postobstructive pneumonia. Continue scheduled breathing treatments. Patient will also be started on scheduled Mucomyst treatments. Await further pulled recommendations. 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 Reviewed chest and abdominal CTs. Current abdominal CT showed a large left adrenal mass which was described to be a smaller nodule on a CAT scan obtained in December 2017. Will await further opinion from oncology, Dr. Del Rosario. - Time Time Spent: 30 to 50 Minutes - Inpatient Certification Medical Necessity: Need For IV Fluids, Need for Nebulizer Therapy and Monitoring of Response, Need for IV Antibiotics, Risk of Complication if Not Cared For in Hospital
[2018-05-03] MEDS: IPRATROPIUM/ALBUTEROL 0.5-2.5 MG/3 ML AMPUL NEB SCH (19:42)
[2018-05-03] MEDS: ACETYLCYSTEINE 10% NEB 400 MG/4 ML VIAL NEB SCH (19:45)
--- NOTE | 2018-05-03 21:14 | EKG REPORT ---
SEVERITY:- ABNORMAL ECG - SINUS RHYTHM PROBABLE LEFT ATRIAL ABNORMALITY INCOMPLETE RIGHT BUNDLE BRANCH BLOCK BORDERLINE PROLONGED QT INTERVAL : Confirmed by: Keith Muller MD 03-May-2018 21:13:50
[2018-05-03] MEDS: LEVOFLOXACIN 750 MG/D5W RTU 750 MG/150 ML RTUPB IV SCH (23:24)
[2018-05-03] MEDS: ENOXAPARIN SODIUM INJ 40 MG/0.4 ML DISP.SYRIN SUBCUT SCH (23:30)
[2018-05-04] MEDS: ACETYLCYSTEINE 10% NEB 400 MG/4 ML VIAL NEB SCH ×4 (02:16→20:19)
[2018-05-04] MEDS: IPRATROPIUM/ALBUTEROL 0.5-2.5 MG/3 ML AMPUL NEB SCH ×4 (02:16→20:18)
[2018-05-04] MEDS ORDERED: METHYLPREDNISOLONE INJ 40 MG/1 ML SDV IV SCH (10:00)
[2018-05-04] MEDS: METHYLPREDNISOLONE INJ 125 MG/2 ML SDV IV SCH (11:09)
[2018-05-04] MEDS: ENOXAPARIN SODIUM INJ 40 MG/0.4 ML DISP.SYRIN SUBCUT SCH (11:09)
--- NOTE | 2018-05-04 15:19 | PDOC PROGRESS REPORT ---
Subjective Progress Note for:: 05/04/18 Subjective:: No acute event overnight. Patient is currently getting breathing treatment at the moment. He is not in distress compared to when he came in yesterday. He says his breathing is improved but he is not at his baseline yet. No fever chills overnight. Currently saturating on 2 L of nasal cannula. Reason For Visit: ACUTE RESPIRATORY FAILURE,STAGE IV LUNG CA Physical Exam Vital Signs: Temp Pulse Resp BP Pulse Ox 98.4 F 95 17 142/68 H 95 05/04/18 08:05 05/04/18 13:42 05/04/18 13:42 05/04/18 08:05 05/04/18 08:05 Intake & Output 05/03/18 05/04/18 05/05/18 06:59 06:59 06:59 Intake Total 1000 503 Balance 1000 503 Weight 159 lb 6.307 oz General appearance: PRESENT: no acute distress, well-developed, well-nourished Head exam: PRESENT: atraumatic, normocephalic Eye exam: PRESENT: conjunctiva pink, EOMI, PERRLA. ABSENT: scleral icterus Neck exam: ABSENT: carotid bruit, JVD, lymphadenopathy, thyromegaly Respiratory exam: PRESENT: other - Note of rales on the right midlung zone, with rhonchi. Noted occasional wheezes bilaterally Pulses: PRESENT: normal dorsalis pedis pul GI/Abdominal exam: PRESENT: normal bowel sounds, soft. ABSENT: distended, guarding, mass, organolmegaly, rebound, tenderness Rectal exam: PRESENT: deferred Neurological exam: PRESENT: alert, awake, oriented to person, oriented to place , oriented to time, oriented to situation, CN II-XII grossly intact. ABSENT: motor sensory deficit Results Impressions: Chest X-Ray 05/03/18 13:37 IMPRESSION: Significant interval change with opacification of the right apex, 5.5 cm in thickness. Increase confluent opacity in the right hilus. Similar volume loss -chronic scarring in the right lung base. Similar mild chronic interstitial changes bilaterally. Small left pleural effusion. Chest/Abdomen CTA 05/03/18 14:33 IMPRESSION: 1. There is no evidence of pulmonary emboli. 2. There is opacification in the right upper hemithorax. This likely represents atelectasis of the right middle lobe and upper lobe. 3. Mediastinal and left hilar adenopathy. 4. Opacification in the right hilum concerning for neoplasm or adenopathy. 5. Right pulmonary nodule with adjacent linear opacification possibly representing satellite lesions. 6. Bilateral pleural effusions. 7. Large left adrenal mass. Assessment & Plan - Diagnosis (1) Acute hypoxemic respiratory failure Is this a current diagnosis for this admission?: Yes Plan: Acute hypoxemic respiratory failure secondary to metastatic lung cancer and possible postobstructive pneumonia. Saturating well on 2 L nasal cannula. (2) Obstructive pneumonia Is this a current diagnosis for this admission?: Yes Plan: Continue Levaquin. Continue scheduled breathing and Mucomyst treatments. (3) Metastatic primary lung cancer Qualifiers: Laterality: right Qualified Code(s): C34.91 - Malignant neoplasm of unspecified part of right bronchus or lung Is this a current diagnosis for this admission?: Yes Plan: Patient was diagnosed last year with stage IV lung adenocarcinoma of the right middle lobe. Oncology following. Noted and appreciated input and recommendations.
--- NOTE | 2018-05-04 16:14 | PDOC CONSULTATION ---
Consultation Consult Date: 05/04/18 Attending physician:: DWIGHT HOPSON Consult reason:: Stage IV lung ca w/ SOB/GUAJARDO/Hypoxia History of Present Illness Admission Date/PCP: 05/03/18 18:43 JULITO MCNEILL MD Patient complains of: SOB/GUAJARDO History of Present Illness: PAULINE SMITH is a 67 year old male w/ known hx of stage IV lung ca, currently on 2nd line therapy with Keytruda, comes w/ 4 days hx of worsening SOB /GUAJARDO, went to [place] for vacation after last treatment. Recent imaging indicating mixed response in disease, here he was found to be tachypnic and hypoxic and was admitted with possible post obstructive pneumonia, COPD exacerbation. CTA chest was noted to have RUL collapse and b/l pleural effusion , but overall disease in my view of images looks stable. He has had cough w/ productive sputum. Past Medical History Cardiac Medical History: Reports: Hypertension Denies: Atrial Fibrillation, Congestive Heart Failure, Coronary Artery Disease, Myocardial Infarction, Hyperlipidema, Peripheral Vascular Disease, Pulmonary Embolism, Heart Murmur Pulmonary Medical History: Reports: Chronic Obstructive Pulmonary Disease (COPD) Denies: Asthma, Bronchitis, Pneumonia, Respiratory Failure, Sleep Apnea, Tuberculosis Neurological Medical History: Denies: Seizures Endocrine Medical History: Reports: Diabetes Mellitus Type 2 Denies: Hyperthyroidism, Hypothyroidism Renal/ Medical History: Denies: End Stage Renal Disease Malignancy Medical History: Reports: Lung Cancer Denies: Breast Cancer, Cervical Cancer, Leukemia, Ovarian Cancer GI Medical History: Reports: Gastroesophageal Reflux Disease, Hiatal Hernia Denies: Crohn's Disease Musculoskeltal Medical History: Denies: Arthritis, Fibromyalgia Psychiatric Medical History: Denies: Bipolar Disorder, Dementia, Depression, Post Traumatic Stress Disorder Hematology: Reports: Anemia Denies: Hemophilia, Sickle Cell Disease Infectious Medical History: Denies: HIV Past Surgical History Past Surgical History: Reports: Other - Colectomy because of large polyps, 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 Denies: Appendectomy, Cholecystectomy, Colostomy, Coronary Artery Bypass Graft, Gastric Bypass Surgery, Herniorrhaphy, Pacemaker, Tonsillectomy Social History Information Source: Patient Lives with: Spouse/Significant other Smoking Status: Former Smoker Frequency of Alcohol Use: None Hx Recreational Drug Use: No Drugs: None Hx Prescription Drug Abuse: No - Advance Directive Resuscitation Status: Do Not Resuscitate Family History Family History: Reviewed & Not Pertinent, Hypertension, Malignancy Parental Family History Reviewed: Yes Children Family History Reviewed: Yes Sibling(s) Family History Reviewed.: Yes Medication/Allergy Home Medications: Albuterol Sulfate [Ventolin Hfa] 2 puff IH Q4HP PRN 05/03/18 Alfuzosin HCl [Alfuzosin HCl ER] 10 mg PO DAILY 05/03/18 Cholecalciferol (Vitamin D3) [Vitamin D3 1000 Unit Tablet] 1,000 unit PO DAILY 05/03/18 Fish Oil/Borage/Flax/Om3,6,9 1 [[place] 3-6-9 1,200 mg Softgel] 1 cap PO DAILY Folic Acid [Folvite 1 mg Tablet] 1 mg PO DAILY 05/03/18 Glucosamine Sulfate Dipot Chlr [Glucosamine] 1,000 mg PO DAILY 05/03/18 Multivitamin [Tab-A-J Luis] 1 tab PO DAILY 05/03/18 Omeprazole 40 mg PO DAILY 05/03/18 Acetylcysteine [Mucomist 10% Neb 400 mg/4 ml Vial] 400 mg IH Q6H 10 Days #30 vial.neb 05/04/18 Ipratropium/Albuterol Sulfate [Duoneb 3 ml Ampul] 3 ml NEB RTQ6HP PRN 20 Days # 40 vial.neb 05/04/18 Allergies/Adverse Reactions: Penicillins Allergy (Unknown, Verified 05/03/18 13:13) unknown tamsulosin [From Flomax] Allergy (Unknown, Verified 05/03/18 13:13) UNKNOWN Review of Systems Constitutional: PRESENT: fatigue, weakness Ears: ABSENT: hearing changes Cardiovascular: PRESENT: dyspnea on exertion Respiratory: PRESENT: cough, dyspnea, sputum Gastrointestinal: ABSENT: abdominal pain, constipation, diarrhea, hematemesis, hematochezia, nausea, vomiting Integumentary: ABSENT: rash, wounds Neurological: ABSENT: abnormal gait, abnormal speech, confusion, dizziness, focal weakness, syncope Physical Exam Vital Signs: Temp Pulse Resp BP Pulse Ox 98.4 F 95 17 142/68 H 95 05/04/18 08:05 05/04/18 13:42 05/04/18 13:42 05/04/18 08:05 05/04/18 08:05 Intake & Output 05/03/18 05/04/18 05/05/18 06:59 06:59 06:59 Intake Total 1000 503 Balance 1000 503 Weight 72.3 kg General appearance: PRESENT: mild distress Mouth exam: PRESENT: dry mucosa Respiratory exam: PRESENT: accessory muscle use, crackles, decreased breath sounds Cardiovascular exam: PRESENT: tachycardia GI/Abdominal exam: PRESENT: normal bowel sounds, soft. ABSENT: distended, guarding, mass, organolmegaly, rebound, tenderness Rectal exam: PRESENT: deferred Extremities exam: PRESENT: full ROM. ABSENT: calf tenderness, clubbing, pedal edema Neurological exam: PRESENT: alert, awake, oriented to person, oriented to place , oriented to time, oriented to situation, CN II-XII grossly intact. ABSENT: motor sensory deficit Results Impressions: Chest X-Ray 05/03/18 13:37 IMPRESSION: Significant interval change with opacification of the right apex, 5.5 cm in thickness. Increase confluent opacity in the right hilus. Similar volume loss -chronic scarring in the right lung base. Similar mild chronic interstitial changes bilaterally. Small left pleural effusion. Chest/Abdomen CTA 05/03/18 14:33 IMPRESSION: 1. There is no evidence of pulmonary emboli. 2. There is opacification in the right upper hemithorax. This likely represents atelectasis of the right middle lobe and upper lobe. 3. Mediastinal and left hilar adenopathy. 4. Opacification in the right hilum concerning for neoplasm or adenopathy. 5. Right pulmonary nodule with adjacent linear opacification possibly representing satellite lesions. 6. Bilateral pleural effusions. 7. Large left adrenal mass. Status: Image reviewed by me Assessment & Plan - Diagnosis (1) Metastatic primary lung cancer Qualifiers: Laterality: right Qualified Code(s): C34.91 - Malignant neoplasm of unspecified part of right bronchus or lung Is this a current diagnosis for this admission?: Yes Plan: Known hx of stage IV lung ca, the collapse of lung maybe related to progression vs T cell infiltration but don't think there is progression elsewhere, agree w/ atbx and nebulizer use, start solumedrol 80mg IV daily. Will follow. Today had long discussion w/ pt, spent >70min in discussion w./ pt and coordination of care. - Time Time Spent: Greater than 70 Minutes - Inpatient Certification Based on my medical assessment, after consideration of the patient's comorbidities, presenting symptoms, or acuity I expect that the services needed warrant INPATIENT care.: Yes I certify that my determination is in accordance with my understanding of Medicare's requirements for reasonable and necessary INPATIENT services [42 CFR 412.3e].: Yes Medical Necessity: Need for Nebulizer Therapy and Monitoring of Response
[2018-05-04] MEDS: LEVOFLOXACIN 750 MG/D5W RTU 750 MG/150 ML RTUPB IV SCH (21:27)
[2018-05-05 07:35] VITALS: BP 129/63
--- NOTE | 2018-05-05 08:23 | RADIOLOGY REPORT (SQ) ---
EXAM DESCRIPTION: CHEST SINGLE VIEW COMPLETED DATE/TIME: 05/05/2018 8:13 am REASON FOR STUDY: SOB COMPARISON: Multiples, most recent 05/03/2018 EXAM PARAMETERS: NUMBER OF VIEWS: One view. TECHNIQUE: Single frontal radiographic view of the chest acquired. RADIATION DOSE: NA LIMITATIONS: None. FINDINGS: LUNGS AND PLEURA: Unchanged right upper and middle lobe opacities with associated volume l oss and tenting of the right hemidiaphragm. Coarsened pulmonary interstitial markings, most pronounc ed of the left lower lobe. Unchanged small bilateral pleural effusions. No new opacities. No pneum othorax. MEDIASTINUM AND HILAR STRUCTURES: Right hilum slightly prominent, secondary to patient positioning an d volume loss of the right lung. HEART AND VASCULAR STRUCTURES: Heart normal in size. Normal vasculature. BONES: No acute findings. HARDWARE: Unchanged positioning of right-sided chest port. OTHER: No other significant finding. IMPRESSION: No significant interval change. TECHNICAL DOCUMENTATION: JOB ID: [id number] [employer]- All Rights Reserved Reading location - IP/workstation name: TRI
--- NOTE | 2018-05-05 08:38 | PDOC PROGRESS REPORT ---
Subjective Progress Note for:: 05/05/18 Subjective:: Looking much better today, had long discussion w/ pt and at bedside, spent >35 min in discussion. Will talk to hospitalist team about possible d/c today and to give him a 2 wk pred taper Reason For Visit: ACUTE RESPIRATORY FAILURE,STAGE IV LUNG CA Physical Exam Vital Signs: Temp Pulse Resp BP Pulse Ox 97.8 F 97 16 129/63 H 97 05/05/18 07:32 05/05/18 07:32 05/05/18 07:32 05/05/18 07:32 05/05/18 07:32 Intake & Output 05/04/18 05/05/18 05/06/18 06:59 06:59 06:59 Intake Total 1150 1874 Balance 1150 1874 Weight 72.3 kg 74 kg General appearance: PRESENT: no acute distress, well-developed, well-nourished Head exam: PRESENT: atraumatic, normocephalic Eye exam: PRESENT: conjunctiva pink, EOMI, PERRLA. ABSENT: scleral icterus Ear exam: PRESENT: normal external ear exam Mouth exam: PRESENT: moist, tongue midline Neck exam: ABSENT: carotid bruit, JVD, lymphadenopathy, thyromegaly Respiratory exam: PRESENT: clear to auscultation campos. ABSENT: rales, rhonchi, wheezes Cardiovascular exam: PRESENT: RRR. ABSENT: diastolic murmur, rubs, systolic murmur Pulses: PRESENT: normal dorsalis pedis pul Vascular exam: PRESENT: normal capillary refill GI/Abdominal exam: PRESENT: normal bowel sounds, soft. ABSENT: distended, guarding, mass, organolmegaly, rebound, tenderness Rectal exam: PRESENT: deferred Extremities exam: PRESENT: full ROM. ABSENT: calf tenderness, clubbing, pedal edema Neurological exam: PRESENT: alert, awake, oriented to person, oriented to place , oriented to time, oriented to situation, CN II-XII grossly intact. ABSENT: motor sensory deficit Psychiatric exam: PRESENT: appropriate affect, normal mood. ABSENT: homicidal ideation, suicidal ideation Skin exam: PRESENT: dry, intact, warm. ABSENT: cyanosis, rash Results Impressions: Chest/Abdomen CTA 05/03/18 14:33 IMPRESSION: 1. There is no evidence of pulmonary emboli. 2. There is opacification in the right upper hemithorax. This likely represents atelectasis of the right middle lobe and upper lobe. 3. Mediastinal and left hilar adenopathy. 4. Opacification in the right hilum concerning for neoplasm or adenopathy. 5. Right pulmonary nodule with adjacent linear opacification possibly representing satellite lesions. 6. Bilateral pleural effusions. 7. Large left adrenal mass. Chest X-Ray 05/05/18 00:00 IMPRESSION: No significant interval change. Assessment & Plan - Diagnosis (1) Metastatic primary lung cancer Qualifiers: Laterality: right Qualified Code(s): C34.91 - Malignant neoplasm of unspecified part of right bronchus or lung Is this a current diagnosis for this admission?: Yes Plan: Will plan further rx as outpt - Time Time Spent with patient: 35 or more minutes Anticipated discharge: Home Within: within 24 hours
[2018-05-05] MEDS: ACETYLCYSTEINE 10% NEB 400 MG/4 ML VIAL NEB SCH (09:31)
[2018-05-05] MEDS: IPRATROPIUM/ALBUTEROL 0.5-2.5 MG/3 ML AMPUL NEB SCH (09:31)
[2018-05-05] MEDS: METHYLPREDNISOLONE INJ 125 MG/2 ML SDV IV SCH (10:07)
[2018-05-05] MEDS: ENOXAPARIN SODIUM INJ 40 MG/0.4 ML DISP.SYRIN SUBCUT SCH (10:08)
--- NOTE | 2018-05-05 12:01 | PDOC DISCHARGE SUMMARY ---
General - Admit/Disc Date/PCP Admission Date/Primary Care Provider: 05/03/18 18:43 JULITO MCNEILL MD Discharge Date: 05/05/18 - Discharge Diagnosis (1) Acute hypoxemic respiratory failure Is this a current diagnosis for this admission?: Yes (2) Obstructive pneumonia Is this a current diagnosis for this admission?: Yes (3) Metastatic primary lung cancer Is this a current diagnosis for this admission?: Yes - Additional Information Resuscitation Status: Do Not Resuscitate Discharge Diet: As Tolerated Discharge Activity: Activity As Tolerated Prescriptions: Acetylcysteine [Mucomist 10% Neb 400 mg/4 ml Vial] 400 mg IH Q6H 10 Days #30 vial.neb Ipratropium/Albuterol Sulfate [Duoneb 3 ml Ampul] 3 ml NEB RTQ6HP PRN 20 Days # 40 vial.neb PRN Reason: Levofloxacin [Levaquin 750 mg Tablet] 750 mg PO DAILY 3 Days #10 tab Prednisone 50 mg PO BID 14 Days #15 tablet Home Medications: Alfuzosin HCl [Alfuzosin HCl ER] 10 mg PO DAILY 05/03/18 Cholecalciferol (Vitamin D3) [Vitamin D3 1000 Unit Tablet] 1,000 unit PO DAILY 05/03/18 Fish Oil/Borage/Flax/Om3,6,9 1 [[place] 3-6-9 1,200 mg Softgel] 1 cap PO DAILY Folic Acid [Folvite 1 mg Tablet] 1 mg PO DAILY 05/03/18 Glucosamine Sulfate Dipot Chlr [Glucosamine] 1,000 mg PO DAILY 05/03/18 Multivitamin [Tab-A-J Luis] 1 tab PO DAILY 05/03/18 Omeprazole 40 mg PO DAILY 05/03/18 Acetylcysteine [Mucomist 10% Neb 400 mg/4 ml Vial] 400 mg IH Q6H 10 Days #30 vial.neb 05/04/18 Ipratropium/Albuterol Sulfate [Duoneb 3 ml Ampul] 3 ml NEB RTQ6HP PRN 20 Days # 40 vial.neb 05/04/18 Levofloxacin [Levaquin 750 mg Tablet] 750 mg PO DAILY 3 Days #10 tab 05/05/18 Prednisone 50 mg PO BID 14 Days #15 tablet 05/05/18 History of Present Illness History of Present Illness: PAULINE SMITH is a 67 year old male with a significant past medical history of stage IV lung adenocarcinoma status post chemotherapy and currently on [place] who presented with increasing shortness of breath. Patient does have mild shortness of breath at baseline. He says that he has been having progressive shortness of breath in the past week and this got worse in the past 2-3 days. He does complain moderately productive cough with frothy sputum. He denies fever or chills. He is also having poor oral intake at home. In the ER, CT showed increasing opacification of the right upper lobe. Patient is also noted to be hypoxic at high 80s to low 90s on room air. Hospital Course Hospital Course: Mr. Flaherty is a 67-year-old male who was admitted for acute hypoxemic respiratory failure likely from metastatic lung cancer and possible postobstructive pneumonia. Patient was started on IV antibiotics, steroids and scheduled breathing treatments with DuoNeb and Mucomyst. He did improve significantly overnight. Oncology was following the patient. They have of discharge, patient says he is back to his baseline. He will continue 3 more days of Levaquin. He will also be continued in the long steroid taper as recommended by oncology. He will also continue to regularly use breathing treatments at home with Mucomyst and DuoNeb. He will follow-up closely with Dr. Peralta who will consider outpatient referral to an interventional manager switch advised in for evaluation if patient will benefit from stent placement. We rediscussed CODE STATUS. Patient is a DNR/DNI. Physical Exam Vital Signs: Temp Pulse Resp BP Pulse Ox 97.8 F 94 16 129/63 H 97 05/05/18 11:26 05/05/18 11:26 05/05/18 11:26 05/05/18 11:26 05/05/18 11:26 Intake & Output 05/04/18 05/05/18 05/06/18 06:59 06:59 06:59 Intake Total 1150 1874 Balance 1150 1874 Weight 159 lb 6.307 oz 163 lb 2.273 oz General appearance: PRESENT: no acute distress Eye exam: PRESENT: conjunctiva pink, EOMI, PERRLA. ABSENT: scleral icterus Neck exam: ABSENT: carotid bruit - Regional wheezes bilaterally, rhonchi which improved compared to yesterday on the right mid upper lung lindo, JVD, lymphadenopathy, thyromegaly Cardiovascular exam: PRESENT: RRR. ABSENT: diastolic murmur, rubs, systolic murmur Pulses: PRESENT: normal dorsalis pedis pul GI/Abdominal exam: PRESENT: normal bowel sounds, soft. ABSENT: distended, guarding, mass, organolmegaly, rebound, tenderness Rectal exam: PRESENT: deferred Neurological exam: PRESENT: alert, awake, oriented to person, oriented to place , oriented to time, oriented to situation, CN II-XII grossly intact. ABSENT: motor sensory deficit Psychiatric exam: PRESENT: appropriate affect, normal mood. ABSENT: homicidal ideation, suicidal ideation Skin exam: PRESENT: dry, intact, warm. ABSENT: cyanosis, rash Results Impressions: Chest/Abdomen CTA 05/03/18 14:33 IMPRESSION: 1. There is no evidence of pulmonary emboli. 2. There is opacification in the right upper hemithorax. This likely represents atelectasis of the right middle lobe and upper lobe. 3. Mediastinal and left hilar adenopathy. 4. Opacification in the right hilum concerning for neoplasm or adenopathy. 5. Right pulmonary nodule with adjacent linear opacification possibly representing satellite lesions. 6. Bilateral pleural effusions. 7. Large left adrenal mass. Chest X-Ray 05/05/18 00:00 IMPRESSION: No significant interval change. Qualifiers - * PATIENT BEING DISCHARGED WITH ANY OF THE FOLLOWING DIAGNOSIS: No
== END 2018-05-05 12:34 | disposition home or self-care (01) | DRG 189 ==
LOC: ER 13:09 → EH 18:43 → 4S 05-04 01:06
PROVIDERS: ADMIT Internal Medicine; ATTEND Internal Medicine
DX: J96.01 Acute respiratory failure with hypoxia (principal); J18.9 Pneumonia, unspecified organism; C34.2 Malignant neoplasm of middle lobe, bronchus or lung; J98.11 Atelectasis; Z66 Do not resuscitate; I10 Essential (primary) hypertension; E11.9 Type 2 diabetes mellitus without complications; K21.9 Gastro-esophageal reflux disease without esophagitis; Z87.19 Personal history of other diseases of the digestive system; Z90.49 Acquired absence of other specified parts of digestive tract; Z87.891 Personal history of nicotine dependence; Z88.0 Allergy status to penicillin; Z79.899 Other long term (current) drug therapy
CPT/HCPCS: 36415; 71045; 71275; 80053; 82803; 83605; 84484; 85025; 85610; 87040; 93005; 93010; 94640; 99291; J1650; J1956; J2930; J3490; J7030; J7620

== ENCOUNTER 2018-05-16 01:41 | Inpatient (IN) | payer MEDICARE, BC ==
[2018-05-16] MEDS ORDERED: METHYLPREDNISOLONE INJ 125 MG/2 ML SDV ONE (01:58)
[2018-05-16] MEDS ORDERED: IPRATROPIUM/ALBUTEROL 0.5-2.5 MG/3 ML AMPUL NEB ONE (01:58)
[2018-05-16] MEDS ORDERED: MAGNESIUM SULFATE/D5W 2 GM/200 ML RTUPB IV ONE (01:58)
[2018-05-16] MEDS ORDERED: METHYLPREDNISOLONE INJ 125 MG/2 ML SDV IV ONE (01:58)
--- NOTE | 2018-05-16 02:03 | ER Document Report ---
ED Respiratory Problem - General Stated Complaint: SHORTNESS OF BREATH Time Seen by Provider: 05/16/18 01:52 Notes: Patient is a 68-year-old male with a history of lung cancer and COPD that comes to the emergency department for chief complaint of shortness of breath. He comes by EMS, EMS gave him 2 DuoNeb treatments, patient was found to be hypoxic on initial presentation with pulse oxygenation in the mid to upper 80s on 4 L nasal cannula. Patient is on 4 L nasal cannula at all times. He denies chest pain, cough, fever, he currently is on prednisone. He is undergoing chemotherapy with oncologist Dr. Peralta. He is full code. TRAVEL OUTSIDE OF THE [place] IN LAST 30 DAYS: No - Related Data Allergies/Adverse Reactions: Penicillins Allergy (Unknown, Verified 05/03/18 13:13) unknown tamsulosin [From Flomax] Allergy (Unknown, Verified 05/03/18 13:13) UNKNOWN Past Medical History - General Information source: Patient, Relative, Emergency Med Personnel - Social History Smoking Status: Former Smoker Frequency of alcohol use: None Drug Abuse: None Lives with: Family Family History: Reviewed & Not Pertinent, Hypertension, Malignancy - Past Medical History Cardiac Medical History: Reports: Hx Hypertension Denies: Hx Atrial Fibrillation, Hx Congestive Heart Failure, Hx Coronary Artery Disease, Hx Heart Attack, Hx Hypercholesterolemia, Hx Peripheral Vascular Disease, Hx Pulmonary Embolism, Hx Heart Murmur Pulmonary Medical History: Reports: Hx COPD Denies: Hx Asthma, Hx Bronchitis, Hx Pneumonia, Hx Respiratory Failure, Hx Sleep Apnea, Hx Tuberculosis Neurological Medical History: Denies: Hx Cerebrovascular Accident, Hx Seizures Endocrine Medical History: Reports: Hx Diabetes Mellitus Type 2. Denies: Hx Graves' Disease, Hx Hyperthyroidism, Hx Hypothyroidism Renal/ Medical History: Denies: Hx Benign Prostatic Hyperplasia, Hx End Stage Renal Disease, Hx Kidney Stones, Hx Peritoneal Dialysis Malignancy Medical History: Denies Hx Leukemia, Reports Hx Lung Cancer GI Medical History: Reports: Hx Gastroesophageal Reflux Disease, Hx Hiatal Hernia. 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 Denies: Hx Appendectomy, Hx Bowel Surgery, Hx Cholecystectomy, Hx Colostomy, Hx Coronary Artery Bypass Graft, Hx Gastric Bypass Surgery, Hx Herniorrhaphy, Hx Pacemaker, Hx Tonsillectomy - Immunizations Hx Diphtheria, Pertussis, Tetanus Vaccination: No Review of Systems - Review of Systems Constitutional: No symptoms reported EENT: No symptoms reported Cardiovascular: See HPI Respiratory: See HPI Gastrointestinal: No symptoms reported Genitourinary: No symptoms reported Male Genitourinary: No symptoms reported Musculoskeletal: No symptoms reported Skin: No symptoms reported Hematologic/Lymphatic: No symptoms reported Neurological/Psychological: No symptoms reported Physical Exam - Vital signs Vitals: Resp Pulse Ox 26 H 93 05/16/18 01:49 05/16/18 01:49 - Notes Notes: GENERAL: Mildly anxious with distress HEAD: Normocephalic, atraumatic. EYES: Pupils equal, round, and reactive to light. Extraocular movements intact. ENT: Oral mucosa moist, tongue midline. [Nares patent, no nasal septal hematoma , TM's intact.] NECK: Full range of motion. Supple. Trachea midline. LUNGS: Decreased bilaterally, expiratory wheezes, tachypnea, labored breathing, respiratory distress HEART: Tachycardia, no murmur ABDOMEN: Soft, non-tender. Non-distended. Bowel sounds present in all 4 quadrants. EXTREMITIES: Bilateral edema of the lower extremity, worse on the left BACK: no cervical, thoracic, lumbar midline tenderness. No saddle anesthesia, normal distal neurovascular exam. NEUROLOGICAL: Alert and oriented x3. Normal speech. [cranial nerves II through XII grossly intact]. SKIN: Warm, dry, normal turgor. No rashes or lesions noted. Course - Re-evaluation Re-evalutation: On initial presentation patient is in respiratory distress with tachypnea, hypoxia, tachycardia, decreased breath sounds, wheezing. Initially patient refused BiPAP, however after he was not improving with magnesium and duo nebs significantly he did agree to this, he was very anxious about this, given Ativan , after Ativan he became much more calm. Chest x-ray shows consolidation similar to prior. Covering with cefepime because of recent admission and recently finishing Levaquin. Cardiac enzyme indeterminate, BNP is elevated, chemistry nonspecific, venous blood gas does show hypercapnia although pH is normal. Patient reevaluated, still comfortable on BiPAP. Hypoxia resolved, tachycardia almost resolved. Patient does have lower extremity swelling, worse on the left, no history of PE. He does have cancer. Because of tachycardia, hypoxia, will CTA the chest to rule out pulmonary emboli. Discussed this with and patient. CTA showing worsening cancer, stage IV. I called and spoke with Dr. Logan, on- call for Dr. Peralta. Updated her on the comparison to old scan. She states they will consult. Discussed with Dr. Dalton, internal medicine, patient will be admitted to the hospital for acute respiratory failure, COPD exacerbation, hypoxia. Patient states agreement with this plan. - Vital Signs Vital signs: Temp Pulse Resp BP Pulse Ox 26 H 105/54 L 97 05/16/18 07:01 05/16/18 07:00 05/16/18 07:01 - Laboratory Result Diagrams: 05/16/18 02:15 05/16/18 02:15 Laboratory results interpreted by me: 05/16/18 05/16/18 05/16/18 02:15 02:15 02:15 WBC 14.2 H RBC 4.24 L Hgb 12.0 L Hct 37.2 L RDW 17.9 H Seg Neutrophils % 86.7 H Lymphocytes % 5.1 L Absolute Neutrophils 12.3 H VBG pCO2 VBG HCO3 Sodium 136.1 L Chloride 94 L Carbon Dioxide 35 H BUN 33 H Direct Bilirubin 0.5 H NT-Pro-B Natriuret Pep 1410 H Total Protein 4.8 L Albumin 2.7 L 05/16/18 02:15 WBC RBC Hgb Hct RDW Seg Neutrophils % Lymphocytes % Absolute Neutrophils VBG pCO2 70.7 H* VBG HCO3 35.4 H Sodium Chloride Carbon Dioxide BUN Direct Bilirubin NT-Pro-B Natriuret Pep Total Protein Albumin Critical Care Note - Critical Care Note Total time excluding time spent on procedures (mins): 35 - Respiratory distress Comments: Please allow 35 minutes of critical care time for evaluation and treatment of patient with respiratory distress, hypoxia, requiring magnesium, duo nebs, Solu- Medrol, multiple re-evaluations, treatment with BiPAP, treatment with Ativan, consultation with specialty, consultation and admission to the hospital. Discharge - Discharge Clinical Impression: Hypoxia, COPD exacerbation Lung cancer Qualifiers: Laterality: right Lung location: unspecified part of lung Qualified Code(s): C34.91 - Malignant neoplasm of unspecified part of right bronchus or lung Respiratory failure Qualifiers: Chronicity: acute Respiratory failure complication: hypoxia and hypercapnia Qualified Code(s): J96.01 - Acute respiratory failure with hypoxia Condition: Fair Disposition: ADMITTED INPATIENT Admitting Provider: Hospitalist Unit Admitted: Telemetry
[2018-05-16] MEDS: MAGNESIUM SULFATE/D5W 1 GM/100 ML RTUPB IV SCH ×2 (02:12→02:25)
[2018-05-16] MEDS ORDERED: LORAZEPAM INJ 2 MG/1 ML VIAL IV ONE (02:28)
[2018-05-16 02:29] LABS: VENOUS BLOOD BASE EXCESS 6.5 mmol/L; VENOUS BLOOD HCO3 35.4 mmol/L (20-32); VENOUS BLOOD PH 7.32 (7.30-7.42)
[2018-05-16 02:30] LABS: ABSOLUTE LYMPHOCYTES (AUTO) 0.7 10^3/uL (0.5-4.7); ABSOLUTE MONOCYTES (AUTO) 1.1 10^3/uL (0.1-1.4); ABSOLUTE NEUT (AUTO) 12.3 10^3/uL (1.7-8.2); BASOPHILS % (AUTO) 0.1 % (0-2); EOSINOPHILS % (AUTO) 0.2 % (0-6); HEMATOCRIT 37.2 % (37.9-51.0); LYMPHOCYTES % (AUTO) 5.1 % (13-45); MEAN CORPUSCULAR HEMOGLOBIN 28.4 pg (27.0-33.4); MEAN CORPUSCULAR HGB CONC 32.4 g/dL (32.0-36.0); MEAN CORPUSCULAR VOLUME 88 fl (80-97); MONOCYTES % (AUTO) 7.9 % (3-13); PLATELET COUNT 159 10^3/uL (150-450); RED BLOOD COUNT 4.24 10^6/uL (4.35-5.55); RED CELL DISTRIBUTION WIDTH 17.9 % (11.5-14.0); SEGMENTED NEUTROPHILS % (AUTO) 86.7 % (42-78); TOTAL CELLS COUNTED % (AUTO) 100 %; VENOUS BLOOD PCO2 70.7 mmHg (35-63); WHITE BLOOD COUNT 14.2 10^3/uL (4.0-10.5)
--- NOTE | 2018-05-16 02:32 | RADIOLOGY REPORT (SQ) ---
EXAM DESCRIPTION: XR CHEST 1 VIEW COMPLETED DATE/TME: 05/16/2018 01:59 CLINICAL HISTORY: 68 years Male, shortness of breath COMPARISON: May 05, 2018 NUMBER OF VIEWS/TECHNIQUE: 1/AP FINDINGS: Moderate opacity of the right upper hemithorax, moderate mixed interstitial and airspace opacity, moderate left lower retrocardiac opacity, small bilateral basilar opacity-effusion, prominent cardiac silhouette, atherosclerosis, mild rightward mediastinal-tracheal shift, right hilar opacity, and adequate appearing right jugular central line, . No pneumothorax. Stable bony thorax. IMPRESSION: No significant change.
[2018-05-16 02:51] LABS: ALANINE AMINOTRANSFERASE 24 U/L (21-72); ALBUMIN 2.7 g/dL (3.5-5.0); ALKALINE PHOSPHATASE 52 U/L (38-126); ANION GAP 7 (5-19); ASPARTATE AMINO TRANSFERASE 25 U/L (17-59); BILIRUBIN,DIRECT 0.5 mg/dL (0.0-0.4); BILIRUBIN,TOTAL 1.1 mg/dL (0.2-1.3); BLOOD UREA NITROGEN 33 mg/dL (7-20); CALCIUM 8.5 mg/dL (8.4-10.2); CARBON DIOXIDE 35 mmol/L (22-30); CHLORIDE 94 mmol/L (98-107); GLUCOSE 85 mg/dL (75-110); POTASSIUM 4.8 mmol/L (3.6-5.0); SODIUM 136.1 mmol/L (137-145); TOTAL PROTEIN 4.8 g/dL (6.3-8.2)
[2018-05-16 03:06] LABS: TROPONIN I 0.089 ng/mL
[2018-05-16] MEDS ORDERED: CEFEPIME 2 GM/D5W RTU 2 GM/50 ML RTUPB IV ONE (03:12)
--- NOTE | 2018-05-16 05:12 | RADIOLOGY REPORT (SQ) ---
EXAM DESCRIPTION: CT CHEST ANGIOGRAPHY WITHOUT THEN WITH IV CONTRAST COMPLETED DATE/TME: 05/16/2018 03:09 CLINICAL HISTORY: 68 years Male, LLE swelling, shortness of breath, tachycardia Comparison: May 03, 2018, January 10, 2018 Technique: IV contrast. Coronal and sagittal reformat. 3d reconstruction. This exam was performed according to our departmental dose-optimization program, which includes automated exposure control, adjustment of the mA and/or kV according to patient size and/or use of iterative reconstruction technique.[facility]: Dose Right [facility]: CareDose [facility]: Dose Right [facility]: Teradose 4D [facility]: Fitmoo LIMITATIONS: None Findings: No pulmonary embolus. Prominent right ventricle. 5.5 cm left adrenal mass, 8.3 x 9.4 cm consolidative mass of the right upper lobe, moderate bilateral pleural effusions, mild mixed interstitial, airspace, nodular opacities, coronary arterial calcification. Moderate mediastinal lymphadenopathy. Moderate disc desiccation. 6.7 cm soft tissue mass erodes the right lateral scapula. Inferior neck, axillae, airway, heart, and vasculature appear otherwise unremarkable. Impression: 1. Worsening mixed airspace and interstitial opacity including large consolidation of the right upper lobe. Moderate bilateral pleural effusion. Moderate mediastinal lymphadenopathy. 5.5 cm stable left adrenal mass. 6.7 cm erosive right scapular mass. 2. No pulmonary embolus.
[2018-05-16] MEDS ORDERED: IPRATROPIUM/ALBUTEROL 0.5-2.5 MG/3 ML AMPUL NEB PRN (05:28)
[2018-05-16] MEDS ORDERED: ACETAMINOPHEN 325 MG TABLET PO PRN (05:28)
[2018-05-16] MEDS ORDERED: GUAIFENESIN SYRP 200 MG/10 ML UDC PO PRN (05:28)
[2018-05-16] MEDS ORDERED: HEPARIN SOD (PORCINE) 5,000 UNIT/ML 1 ML SYRINGE SUBCUT SCH (06:00)
--- NOTE | 2018-05-16 06:16 | PDOC H&P ---
History of Present Illness Admission Date/PCP: 05/16/18 05:34 JULITO MCNEILL MD Patient complains of: Shortness of breath History of Present Illness: PAULINE SMITH is a 68 year old male with a past medical history of oxygen dependent COPD, stage IV lung cancer, right upper lobe atelectasis, adrenal mass , on second line therapy with Keytruda and recent pneumonia. Patient discharged 11 days ago for postobstructive pneumonia, completed course of antibiotics and states had been doing better though developed air hunger and anxiety he was prescribed a benzodiazepine. In the emergency room he is found to have acute on chronic respiratory failure with a PCO2 of 70 and a pulse ox of 85 on 2 L nasal cannula. He started on BiPAP, empiric antibiotics and referred to the hospitalist for admission. He admits nonproductive cough, no rhinorrhea no sore throat no uncontrolled GERD. He has been evaluated for endobronchial stent but was declined. Patient's CODE STATUS is DNR Past Medical History Cardiac Medical History: Reports: Hypertension Denies: Atrial Fibrillation, Congestive Heart Failure, Coronary Artery Disease, Myocardial Infarction, Hyperlipidema, Peripheral Vascular Disease, Pulmonary Embolism, Heart Murmur Pulmonary Medical History: Reports: Chronic Obstructive Pulmonary Disease (COPD) Denies: Asthma, Bronchitis, Pneumonia, Respiratory Failure, Sleep Apnea, Tuberculosis Neurological Medical History: Denies: Seizures Endocrine Medical History: Reports: Diabetes Mellitus Type 2 Denies: Hyperthyroidism, Hypothyroidism Renal/ Medical History: Denies: End Stage Renal Disease Malignancy Medical History: Reports: Lung Cancer Denies: Breast Cancer, Cervical Cancer, Leukemia, Ovarian Cancer GI Medical History: Reports: Gastroesophageal Reflux Disease, Hiatal Hernia Denies: Crohn's Disease Musculoskeltal Medical History: Denies: Arthritis, Fibromyalgia Psychiatric Medical History: Denies: Bipolar Disorder, Dementia, Depression, Post Traumatic Stress Disorder Hematology: Reports: Anemia Denies: Hemophilia, Sickle Cell Disease Infectious Medical History: Denies: HIV Past Surgical History Past Surgical History: Reports: Other - Colectomy because of large polyps, 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 Denies: Appendectomy, Cholecystectomy, Colostomy, Coronary Artery Bypass Graft, Gastric Bypass Surgery, Herniorrhaphy, Pacemaker, Tonsillectomy Social History Information Source: Patient, [facility] Records Smoking Status: Former Smoker Frequency of Alcohol Use: None Hx Recreational Drug Use: No Drugs: None Hx Prescription Drug Abuse: No - Advance Directive Resuscitation Status: Do Not Resuscitate Family History Family History: Hypertension, Malignancy Parental Family History Reviewed: Yes Children Family History Reviewed: Yes Sibling(s) Family History Reviewed.: Yes Medication/Allergy Home Medications: Alfuzosin HCl [Alfuzosin HCl ER] 10 mg PO DAILY 05/03/18 Cholecalciferol (Vitamin D3) [Vitamin D3 1000 Unit Tablet] 1,000 unit PO DAILY 05/03/18 Fish Oil/Borage/Flax/Om3,6,9 1 [[place] 3-6-9 1,200 mg Softgel] 1 cap PO DAILY Folic Acid [Folvite 1 mg Tablet] 1 mg PO DAILY 05/03/18 Glucosamine Sulfate Dipot Chlr [Glucosamine] 1,000 mg PO DAILY 05/03/18 Multivitamin [Tab-A-J Luis] 1 tab PO DAILY 05/03/18 Omeprazole 40 mg PO DAILY 05/03/18 Acetylcysteine [Mucomist 10% Neb 400 mg/4 ml Vial] 400 mg IH Q6H 10 Days #30 vial.neb 05/04/18 Ipratropium/Albuterol Sulfate [Duoneb 3 ml Ampul] 3 ml NEB RTQ6HP PRN 20 Days # 40 vial.neb 05/04/18 Levofloxacin [Levaquin 750 mg Tablet] 750 mg PO DAILY 3 Days #10 tab 05/05/18 Prednisone 50 mg PO BID 14 Days #15 tablet 05/05/18 Allergies/Adverse Reactions: Penicillins Allergy (Unknown, Verified 05/03/18 13:13) unknown tamsulosin [From Flomax] Allergy (Unknown, Verified 05/03/18 13:13) UNKNOWN Review of Systems Constitutional: PRESENT: as per HPI, anorexia, fatigue, other - Chronically ill appearing with temporal wasting Eyes: ABSENT: visual disturbances Ears: ABSENT: hearing changes Cardiovascular: ABSENT: chest pain, dyspnea on exertion, edema, orthropnea, palpitations Respiratory: PRESENT: as per HPI, cough, dyspnea. ABSENT: hemoptysis, sputum Gastrointestinal: ABSENT: abdominal pain, constipation, diarrhea, hematemesis, hematochezia, nausea, vomiting Genitourinary: ABSENT: dysuria, hematuria Musculoskeletal: ABSENT: joint swelling Integumentary: ABSENT: rash, wounds Neurological: ABSENT: abnormal gait, abnormal speech, confusion, dizziness, focal weakness, syncope Psychiatric: PRESENT: as per HPI, anxiety Endocrine: ABSENT: cold intolerance, heat intolerance, polydipsia, polyuria Hematologic/Lymphatic: ABSENT: easy bleeding, easy bruising Physical Exam Vital Signs: Temp Pulse Resp BP Pulse Ox 17 112/61 93 05/16/18 05:01 05/16/18 05:00 05/16/18 05:01 General appearance: PRESENT: cooperative, severe distress. ABSENT: no acute distress, disheveled, hard of hearing Head exam: PRESENT: atraumatic, normocephalic Eye exam: PRESENT: conjunctiva pink, EOMI, PERRLA. ABSENT: scleral icterus Ear exam: PRESENT: normal external ear exam Mouth exam: PRESENT: moist, tongue midline Neck exam: ABSENT: carotid bruit, JVD, lymphadenopathy, thyromegaly Respiratory exam: PRESENT: accessory muscle use, crackles, decreased breath sounds, prolonged expiratory phas, rales, retraction, rhonchi, tachypnea. ABSENT: stridor, symmetrical, wheezes Cardiovascular exam: PRESENT: RRR. ABSENT: diastolic murmur, rubs, systolic murmur Pulses: PRESENT: normal dorsalis pedis pul Vascular exam: PRESENT: normal capillary refill GI/Abdominal exam: PRESENT: normal bowel sounds, soft. ABSENT: distended, guarding, mass, organolmegaly, rebound, tenderness Rectal exam: PRESENT: deferred Extremities exam: PRESENT: full ROM. ABSENT: calf tenderness, clubbing, pedal edema Neurological exam: PRESENT: alert, awake, oriented to person, oriented to place , oriented to time, oriented to situation, CN II-XII grossly intact. ABSENT: motor sensory deficit Psychiatric exam: PRESENT: anxious Skin exam: PRESENT: dry, intact, warm. ABSENT: cyanosis, rash Results Impressions: Chest X-Ray 05/16/18 01:59 IMPRESSION: No significant change. Assessment & Plan - Diagnosis (1) Obstructive pneumonia Is this a current diagnosis for this admission?: Yes Plan: Pneumonia care set, follow-up blood and sputum culture. (2) COPD exacerbation Is this a current diagnosis for this admission?: Yes Plan: Currently BiPAP dependent, limit benzodiazepine given respiratory depression, trial trazodone (3) Lung cancer Qualifiers: Laterality: right Lung location: unspecified part of lung Qualified Code( s): C34.91 - Malignant neoplasm of unspecified part of right bronchus or lung Is this a current diagnosis for this admission?: Yes Plan: Oncology and hospice consult (4) Anxiety Is this a current diagnosis for this admission?: Yes Plan: Limit benzodiazepine given respiratory depression, trial trazodone - Time Time Spent: 50 to 70 Minutes - Inpatient Certification Medical Necessity: Need Close Monitoring Due to Risk of Patient Decompensation
[2018-05-16] MEDS: LEVOFLOXACIN 750 MG/D5W RTU 750 MG/150 ML RTUPB IV SCH (06:20)
--- NOTE | 2018-05-16 07:51 | EKG REPORT ---
SEVERITY:- ABNORMAL ECG - SINUS TACHYCARDIA RBBB AND LPFB NONSPECIFIC ST-T CHANGES- INFEROLATERAL LEADS : Confirmed by: Keith Muller MD 16-May-2018 07:50:57
[2018-05-16] MEDS: IPRATROPIUM/ALBUTEROL 0.5-2.5 MG/3 ML AMPUL NEB SCH ×3 (08:31→19:59)
--- NOTE | 2018-05-16 08:38 | PDOC CONSULTATION ---
Consultation Consult Date: 05/16/18 Attending physician:: GUILLERMINA ESPINOSA Consult reason:: Known hx of stage IV lung ca, increasing hypoxia, known history of malignant pleural effusion History of Present Illness Admission Date/PCP: 05/16/18 05:34 JULITO MCNEILL MD Patient complains of: Dyspnea on exertion, hypoxia History of Present Illness: PAULINE SMITH is a 68 year old male well-known to our oncology clinic with stage IV adenocarcinoma of the lung who presented now about 9 months ago with right malignant pleural effusion, recently has had worsening right lung disease , with right upper lobe collapse, had CT of the chest done while admitted which indicated enlarging left pleural effusion as well as progression of disease once again. He was hypoxic upon admission, required BiPAP through the night, is currently on 4 L of oxygen. Past Medical History Cardiac Medical History: Reports: Hypertension Denies: Atrial Fibrillation, Congestive Heart Failure, Coronary Artery Disease, Myocardial Infarction, Hyperlipidema, Peripheral Vascular Disease, Pulmonary Embolism, Heart Murmur Pulmonary Medical History: Reports: Chronic Obstructive Pulmonary Disease (COPD) Denies: Asthma, Bronchitis, Pneumonia, Respiratory Failure, Sleep Apnea, Tuberculosis Neurological Medical History: Denies: Seizures Endocrine Medical History: Reports: Diabetes Mellitus Type 2 Denies: Hyperthyroidism, Hypothyroidism Renal/ Medical History: Denies: End Stage Renal Disease Malignancy Medical History: Reports: Lung Cancer Denies: Breast Cancer, Cervical Cancer, Leukemia, Ovarian Cancer GI Medical History: Reports: Gastroesophageal Reflux Disease, Hiatal Hernia Denies: Crohn's Disease Musculoskeltal Medical History: Denies: Arthritis, Fibromyalgia Psychiatric Medical History: Denies: Bipolar Disorder, Dementia, Depression, Post Traumatic Stress Disorder Hematology: Reports: Anemia Denies: Hemophilia, Sickle Cell Disease Infectious Medical History: Denies: HIV Past Surgical History Past Surgical History: Reports: Other - Colectomy because of large polyps, 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 Denies: Appendectomy, Cholecystectomy, Colostomy, Coronary Artery Bypass Graft, Gastric Bypass Surgery, Herniorrhaphy, Pacemaker, Tonsillectomy Social History Information Source: Patient Lives with: Family Smoking Status: Former Smoker Frequency of Alcohol Use: None Hx Recreational Drug Use: No Drugs: None Hx Prescription Drug Abuse: No - Advance Directive Resuscitation Status: Do Not Resuscitate Family History Family History: Reviewed & Not Pertinent, Hypertension, Malignancy Parental Family History Reviewed: Yes Children Family History Reviewed: Yes Sibling(s) Family History Reviewed.: Yes Medication/Allergy Allergies/Adverse Reactions: Penicillins Allergy (Unknown, Verified 05/03/18 13:13) unknown tamsulosin [From Flomax] Allergy (Unknown, Verified 05/03/18 13:13) UNKNOWN Review of Systems Constitutional: PRESENT: fatigue, weakness, weight loss Cardiovascular: PRESENT: dyspnea on exertion Gastrointestinal: ABSENT: abdominal pain, constipation, diarrhea, hematemesis, hematochezia, nausea, vomiting Musculoskeletal: ABSENT: joint swelling Neurological: ABSENT: abnormal gait, abnormal speech, confusion, dizziness, focal weakness, syncope Physical Exam Vital Signs: Temp Pulse Resp BP Pulse Ox 23 H 118/64 96 05/16/18 08:01 05/16/18 08:00 05/16/18 08:01 General appearance: PRESENT: no acute distress, well-developed, well-nourished Head exam: PRESENT: atraumatic, normocephalic Eye exam: PRESENT: conjunctiva pink, EOMI, PERRLA. ABSENT: scleral icterus Ear exam: PRESENT: normal external ear exam Mouth exam: PRESENT: moist, tongue midline Neck exam: ABSENT: carotid bruit, JVD, lymphadenopathy, thyromegaly Respiratory exam: PRESENT: clear to auscultation campos. ABSENT: rales, rhonchi, wheezes Cardiovascular exam: PRESENT: RRR. ABSENT: diastolic murmur, rubs, systolic murmur Pulses: PRESENT: normal dorsalis pedis pul Vascular exam: PRESENT: normal capillary refill GI/Abdominal exam: PRESENT: normal bowel sounds, soft. ABSENT: distended, guarding, mass, organolmegaly, rebound, tenderness Rectal exam: PRESENT: deferred Extremities exam: PRESENT: full ROM. ABSENT: calf tenderness, clubbing, pedal edema Neurological exam: PRESENT: alert, awake, oriented to person, oriented to place , oriented to time, oriented to situation, CN II-XII grossly intact. ABSENT: motor sensory deficit Psychiatric exam: PRESENT: appropriate affect, normal mood. ABSENT: homicidal ideation, suicidal ideation Skin exam: PRESENT: dry, intact, warm. ABSENT: cyanosis, rash Results Impressions: Chest X-Ray 05/16/18 01:59 IMPRESSION: No significant change. Status: Image reviewed by me Assessment & Plan - Diagnosis (1) Malignant pleural effusion Is this a current diagnosis for this admission?: Yes Plan: May be because of worsening hypoxia, or at least contributing, plan for left thoracentesis today. Discussed with radiology, held heparin. (2) Lung cancer Qualifiers: Laterality: right Lung location: upper lobe of lung Qualified Code(s): C34.11 - Malignant neoplasm of upper lobe, right bronchus or lung Is this a current diagnosis for this admission?: Yes Plan: Worsening right lung cancer, plan for thoracentesis and see how patient does. We were planning on third line therapy as an outpatient. He was supposed to get treatment tomorrow. Of course, that will be on hold for now. We will see how he does over the next 24-48 hours and discuss further about next steps of care. - Time Time Spent: Greater than 70 Minutes - Inpatient Certification Based on my medical assessment, after consideration of the patient's comorbidities, presenting symptoms, or acuity I expect that the services needed warrant INPATIENT care.: Yes I certify that my determination is in accordance with my understanding of Medicare's requirements for reasonable and necessary INPATIENT services [42 CFR 412.3e].: Yes Medical Necessity: Need for Nebulizer Therapy and Monitoring of Response, Risk of Complication if Not Cared For in Hospital
[2018-05-16] MEDS ORDERED: (PENDING PHARMACY ID) (Alfuzosin Hcl [Alfuzosin Hcl Er] 10 MG) PO SCH (10:00)
[2018-05-16] MEDS: TRAZODONE HCL 50 MG TABLET PO SCH ×3 (10:43→23:45)
[2018-05-16] MEDS: CHOLECALCIFEROL (D3) 1,000 UNIT TABLET PO SCH (10:43)
[2018-05-16] MEDS: LORAZEPAM INJ 2 MG/1 ML VIAL IV PRN (23:48)
[2018-05-17] MEDS: IPRATROPIUM/ALBUTEROL 0.5-2.5 MG/3 ML AMPUL NEB SCH ×4 (02:24→19:53)
[2018-05-17] MEDS ORDERED: CEFEPIME 2 GM/D5W RTU 2 GM/50 ML RTUPB IV ONE (03:16)
[2018-05-17] MEDS: CEFEPIME 2 GM/D5W RTU 2 GM/50 ML RTUPB IV SCH ×3 (03:52→17:45)
[2018-05-17 05:18] LABS: HEMATOCRIT 34.1 % (37.9-51.0); HEMOGLOBIN 11.3 g/dL (13.5-17.0); MEAN CORPUSCULAR HEMOGLOBIN 28.5 pg (27.0-33.4); MEAN CORPUSCULAR HGB CONC 33.3 g/dL (32.0-36.0); MEAN CORPUSCULAR VOLUME 86 fl (80-97); PLATELET COUNT 141 10^3/uL (150-450); RED BLOOD COUNT 3.98 10^6/uL (4.35-5.55); RED CELL DISTRIBUTION WIDTH 18.3 % (11.5-14.0); WHITE BLOOD COUNT 19.3 10^3/uL (4.0-10.5)
[2018-05-17 05:34] LABS: ANION GAP 5 (5-19); BLOOD UREA NITROGEN 41 mg/dL (7-20); CALCIUM 8.7 mg/dL (8.4-10.2); CARBON DIOXIDE 35 mmol/L (22-30); CHLORIDE 94 mmol/L (98-107); GLUCOSE 110 mg/dL (75-110); PHOSPHORUS 3.6 mg/dL (2.5-4.5); POTASSIUM 4.7 mmol/L (3.6-5.0); SODIUM 133.9 mmol/L (137-145)
[2018-05-17 05:48] LABS: ABSOLUTE LYMPHOCYTES# (MANUAL) 0.4 10^3/uL (0.5-4.7); ABSOLUTE MONOCYTES # (MANUAL) 0.2 10^3/uL (0.1-1.4); ABSOLUTE NEUTROPHILS# (MANUAL) 18.7 10^3/uL (1.7-8.2); ANISOCYTOSIS 2+; BAND NEUTROPHILS % (MANUAL) 1 % (3-5); BASOPHILS % (MANUAL) 0 % (0-2); EOSINOPHILS % (MANUAL) 0 % (0-6); LYMPHOCYTES % (MANUAL) 2 % (13-45); MONOCYTES % (MANUAL) 1 % (3-13); SEGMENTED NEUTROPHILS % (MAN) 96 % (42-78); TOTAL CELLS COUNTED 100
[2018-05-17 05:50] LABS: BURR CELLS SLIGHT; OVALOCYTES 1+; POIKILOCYTOSIS 1+; SCHISTOCYTES SLIGHT
[2018-05-17] MEDS: LEVOFLOXACIN 750 MG/D5W RTU 750 MG/150 ML RTUPB IV SCH (05:50)
[2018-05-17 05:51] LABS: PLATELET COMMENT DECREASED
[2018-05-17] MEDS ORDERED: LIDOCAINE 1%/EPINEPHRINE INJ 20 ML VIAL ONE (08:32)
[2018-05-17] MEDS ORDERED: LIDOCAINE 1% INJ-PF (10 MG/ML) 30 ML SDV ONE (08:35)
--- NOTE | 2018-05-17 08:40 | PDOC PROGRESS REPORT ---
Subjective Progress Note for:: 05/17/18 Subjective:: Patient plan for thoracentesis today still requiring BiPAP. Reason For Visit: LUNG CA, POST OBST PNEUMONIA Physical Exam Vital Signs: Temp Pulse Resp BP Pulse Ox 97.3 F 102 H 28 H 114/59 L 100 05/17/18 03:36 05/17/18 08:00 05/17/18 08:00 05/17/18 03:36 05/17/18 08:00 Intake & Output 05/16/18 05/17/18 05/18/18 06:59 06:59 06:59 Intake Total 300 Output Total 400 Balance -100 Weight 80.8 kg General appearance: PRESENT: no acute distress, well-developed, well-nourished Head exam: PRESENT: atraumatic, normocephalic Eye exam: PRESENT: conjunctiva pink, EOMI, PERRLA. ABSENT: scleral icterus Ear exam: PRESENT: normal external ear exam Mouth exam: PRESENT: moist, tongue midline Neck exam: ABSENT: carotid bruit, JVD, lymphadenopathy, thyromegaly Respiratory exam: PRESENT: clear to auscultation campos. ABSENT: rales, rhonchi, wheezes Cardiovascular exam: PRESENT: RRR. ABSENT: diastolic murmur, rubs, systolic murmur Pulses: PRESENT: normal dorsalis pedis pul Vascular exam: PRESENT: normal capillary refill GI/Abdominal exam: PRESENT: normal bowel sounds, soft. ABSENT: distended, guarding, mass, organolmegaly, rebound, tenderness Rectal exam: PRESENT: deferred Extremities exam: PRESENT: full ROM. ABSENT: calf tenderness, clubbing, pedal edema Neurological exam: PRESENT: alert, awake, oriented to person, oriented to place , oriented to time, oriented to situation, CN II-XII grossly intact. ABSENT: motor sensory deficit Psychiatric exam: PRESENT: appropriate affect, normal mood. ABSENT: homicidal ideation, suicidal ideation Skin exam: PRESENT: dry, intact, warm. ABSENT: cyanosis, rash Results Laboratory Results: 05/17/18 04:43 05/17/18 04:43 05/17/18 05/17/18 04:43 04:43 WBC 19.3 H RBC 3.98 L Hgb 11.3 L Hct 34.1 L MCV 86 MCH 28.5 MCHC 33.3 RDW 18.3 H Plt Count 141 L Seg Neutrophils % Not Reportable Lymphocytes % Not Reportable Monocytes % Not Reportable Eosinophils % Not Reportable Basophils % Not Reportable Absolute Neutrophils Not Reportable Absolute Lymphocytes Not Reportable Absolute Monocytes Not Reportable Absolute Eosinophils Not Reportable Absolute Basophils Not Reportable Sodium 133.9 L Potassium 4.7 Chloride 94 L Carbon Dioxide 35 H Anion Gap 5 BUN 41 H Creatinine 0.89 Est GFR ( Amer) > 60 Est GFR (Non-Af Amer) > 60 Glucose 110 Calcium 8.7 Phosphorus 3.6 Magnesium 2.5 H Impressions: Chest X-Ray 05/16/18 01:59 IMPRESSION: No significant change. Assessment & Plan - Diagnosis (1) Malignant pleural effusion Is this a current diagnosis for this admission?: Yes Plan: Plan for thoracentesis today. (2) Lung cancer Qualifiers: Laterality: right Lung location: upper lobe of lung Qualified Code(s): C34.11 - Malignant neoplasm of upper lobe, right bronchus or lung Is this a current diagnosis for this admission?: Yes Plan: Today had long discussion with patient and at bedside, he is mostly chair and bedridden because of his lung status, if this does not improve post thoracentesis I think we will need to discuss hospice. I began the discussion today, patient agrees to DNR but I still see full code as written in the chart I will discuss this with the hospitalist team.
--- NOTE | 2018-05-17 09:24 | RADIOLOGY REPORT (SQ) ---
EXAM DESCRIPTION: CHEST SINGLE VIEW COMPLETED DATE/TIME: 05/17/2018 9:11 am REASON FOR STUDY: S/P LEFT THORACENTESIS COMPARISON: Chest films 05/03/2018, 05/05/2018, 05/16/2018 EXAM PARAMETERS: NUMBER OF VIEWS: One view. TECHNIQUE: Single frontal radiographic view of the chest acquired. RADIATION DOSE: NA LIMITATIONS: None. FINDINGS: LUNGS AND PLEURA: Immediate post left thoracentesis chest film. Decrease in left pleural effusion compared to previous films. No left pneumothorax. Stable chronic increased interstitial ma rkings in the left mid lung. On the right side, unchanged volume loss consolidation and apical pleural thickening is present. MEDIASTINUM AND HILAR STRUCTURES: Right hilar mass unchanged HEART AND VASCULAR STRUCTURES: Heart normal in size. Normal vasculature. BONES: No acute findings. HARDWARE: Right permanent central line tip superior vena cava OTHER: No other significant finding. IMPRESSION: No pneumothorax post left thoracentesis (800 mL of fluid removed from the left pleural s pace). TECHNICAL DOCUMENTATION: JOB ID: [id number] [employer]- All Rights Reserved Reading location - IP/workstation name: [email or web address]
--- NOTE | 2018-05-17 09:25 | RADIOLOGY REPORT (SQ) ---
EXAM DESCRIPTION: U/S THORACENTESIS WITH IMAGING COMPLETED DATE/TIME: 05/17/2018 9:08 am REASON FOR STUDY: Pleural effusion COMPARISON: CT angio chest 05/16/2018, CT chest 05/03/2018 Chest films 05/16/2018, 05/05/2018 LIMITATIONS: None. PROCEDURE: Procedure, risks, benefit, and alternative explained to patient who then gave written con sent. The posterior left chest wall was marked using ultrasound guidance. A time-out was called for correct marking verification. Chest prepped and draped using sterile technique. Local anesthesia ac hieved using 4.5 ml of 1% lidocaine injection. A 6fr Safe-T- Centesis set was introduced into the le ft pleural space. Fluid was aspirated. The needle was removed and the entry site was covered with s terile bandage. No immediate complications noted. No fluid was sent for testing. Post procedure chest x-ray dictated separately demonstrated no left-sided pneumothorax. Images acquired during the procedure were stored on PACS. FINDINGS: ENTRY SITE: Left posterior pleural space FLUID VOLUME: 800 mL FLUID ANALYSIS: Clear yellow fluid OTHER: No fluid was sent for testing. IMPRESSION: SUCCESSFUL THORACENTESIS USING ULTRASOUND GUIDANCE. COMMENT: Patient medication list reviewed: Yes- Quality ID# [id number]:Eligible professional attests to doc umenting in the medical record they obtained, updated, or reviewed the patient's current medications. TECHNICAL DOCUMENTATION: JOB ID: [id number] [employer]- All Rights Reserved Reading location - IP/workstation name: [email or web address]
[2018-05-17] MEDS: TRAZODONE HCL 50 MG TABLET PO SCH ×2 (10:28→22:36)
[2018-05-17] MEDS: CHOLECALCIFEROL (D3) 1,000 UNIT TABLET PO SCH (10:28)
--- NOTE | 2018-05-17 11:47 | RADIOLOGY REPORT (SQ) ---
EXAM DESCRIPTION: CHEST SINGLE VIEW COMPLETED DATE/TIME: 05/17/2018 11:20 am REASON FOR STUDY: 2 HOURS S/P LEFT THORACENTESIS COMPARISON: 05/17/2018 EXAM PARAMETERS: NUMBER OF VIEWS: One view. TECHNIQUE: Single frontal radiographic view of the chest acquired. RADIATION DOSE: NA LIMITATIONS: None. FINDINGS: LUNGS AND PLEURA: No evidence for pneumothorax is seen. Tiny residual left pleural effusi on is again identified. Previously described chronic appearing changes are stable. MEDIASTINUM AND HILAR STRUCTURES: No masses. Contour normal. HEART AND VASCULAR STRUCTURES: The configuration of the heart and mediastinal structures is unchanged . BONES: No acute findings. HARDWARE: Port-A-Cath is unchanged in position. OTHER: No other significant finding. IMPRESSION: No evidence for pneumothorax post thoracentesis. No other significant interval change. TECHNICAL DOCUMENTATION: JOB ID: [id number] [employer]- All Rights Reserved Reading location - IP/workstation name: [email or web address]
--- NOTE | 2018-05-17 14:16 | PDOC PROGRESS REPORT ---
Subjective Progress Note for:: 05/17/18 Subjective:: Patient had ultrasound-guided thoracentesis today was 800 cc removed from his left pleural space. He is feeling a lot better but still weak and short of breath. He is back to his 4 L of oxygen that he uses at home. He is off BiPAP. Reason For Visit: LUNG CA, POST OBST PNEUMONIA Physical Exam Vital Signs: Temp Pulse Resp BP Pulse Ox 98.4 F 108 H 20 106/52 L 95 05/17/18 10:58 05/17/18 14:00 05/17/18 14:00 05/17/18 10:58 05/17/18 14:00 Intake & Output 05/16/18 05/17/18 05/18/18 06:59 06:59 06:59 Intake Total 300 400 Output Total 400 Balance -100 400 Weight 178 lb 2.136 oz General appearance: PRESENT: cooperative, mild distress Head exam: PRESENT: atraumatic, normocephalic Eye exam: PRESENT: conjunctiva pink, EOMI, PERRLA. ABSENT: scleral icterus Ear exam: PRESENT: normal external ear exam Neck exam: ABSENT: meningismus, tenderness, thyromegaly Respiratory exam: PRESENT: decreased breath sounds, wheezes. ABSENT: accessory muscle use Cardiovascular exam: PRESENT: RRR. ABSENT: diastolic murmur, rubs, systolic murmur Pulses: PRESENT: normal dorsalis pedis pul Vascular exam: PRESENT: normal capillary refill GI/Abdominal exam: PRESENT: normal bowel sounds, soft. ABSENT: distended, guarding, mass, organolmegaly, rebound, tenderness Rectal exam: PRESENT: deferred Extremities exam: PRESENT: +1 edema. ABSENT: calf tenderness, clubbing Neurological exam: PRESENT: alert, awake, oriented to person, oriented to place , oriented to time, oriented to situation, CN II-XII grossly intact. ABSENT: motor sensory deficit Psychiatric exam: PRESENT: appropriate affect, normal mood. ABSENT: homicidal ideation, suicidal ideation Results Laboratory Results: 05/17/18 04:43 05/17/18 04:43 05/17/18 05/17/18 04:43 04:43 WBC 19.3 H RBC 3.98 L Hgb 11.3 L Hct 34.1 L MCV 86 MCH 28.5 MCHC 33.3 RDW 18.3 H Plt Count 141 L Seg Neutrophils % Not Reportable Lymphocytes % Not Reportable Monocytes % Not Reportable Eosinophils % Not Reportable Basophils % Not Reportable Absolute Neutrophils Not Reportable Absolute Lymphocytes Not Reportable Absolute Monocytes Not Reportable Absolute Eosinophils Not Reportable Absolute Basophils Not Reportable Sodium 133.9 L Potassium 4.7 Chloride 94 L Carbon Dioxide 35 H Anion Gap 5 BUN 41 H Creatinine 0.89 Est GFR ( Amer) > 60 Est GFR (Non-Af Amer) > 60 Glucose 110 Calcium 8.7 Phosphorus 3.6 Magnesium 2.5 H Impressions: Chest X-Ray 05/17/18 00:00 IMPRESSION: No evidence for pneumothorax post thoracentesis. No other significant interval change. Thoracentesis Ultrasound 05/17/18 00:00 IMPRESSION: SUCCESSFUL THORACENTESIS USING ULTRASOUND GUIDANCE. Assessment & Plan - Diagnosis (1) Anxiety Is this a current diagnosis for this admission?: Yes (2) COPD exacerbation Is this a current diagnosis for this admission?: Yes (3) Lung cancer Qualifiers: Laterality: right Lung location: upper lobe of lung Qualified Code(s): C34.11 - Malignant neoplasm of upper lobe, right bronchus or lung Is this a current diagnosis for this admission?: Yes (4) Malignant pleural effusion Is this a current diagnosis for this admission?: Yes (5) Respiratory failure Qualifiers: Chronicity: acute Respiratory failure complication: hypoxia and hypercapnia Qualified Code(s): J96.01 - Acute respiratory failure with hypoxia ; J96.02 - Acute respiratory failure with hypercapnia; J96.02 - Acute respiratory failure with hypercapnia; J96.02 - Acute respiratory failure with hypercapnia Is this a current diagnosis for this admission?: Yes (6) Hypertension Qualifiers: Hypertension type: essential hypertension Qualified Code(s): I10 - Essential (primary) hypertension Is this a current diagnosis for this admission?: Yes (7) Pneumonia Qualifiers: Pneumonia type: due to unspecified organism Laterality: right Lung location: middle lobe of lung Qualified Code(s): J18.1 - Lobar pneumonia, unspecified organism Is this a current diagnosis for this admission?: Yes - Plan Summary Plan Summary: Continue current antibiotics Continue bronchodilators and steroids Continue oxygen via nasal cannula He is much better after thoracentesis He is still very weak but he thinks he could go home tomorrow Poor prognosis
[2018-05-18] MEDS: IPRATROPIUM/ALBUTEROL 0.5-2.5 MG/3 ML AMPUL NEB SCH ×5 (02:12→23:58)
[2018-05-18 05:18] LABS: HEMATOCRIT 32.9 % (37.9-51.0); HEMOGLOBIN 10.9 g/dL (13.5-17.0); MEAN CORPUSCULAR HEMOGLOBIN 28.6 pg (27.0-33.4); MEAN CORPUSCULAR HGB CONC 33.2 g/dL (32.0-36.0); MEAN CORPUSCULAR VOLUME 86 fl (80-97); PLATELET COUNT 134 10^3/uL (150-450); RED BLOOD COUNT 3.81 10^6/uL (4.35-5.55); RED CELL DISTRIBUTION WIDTH 18.3 % (11.5-14.0); WHITE BLOOD COUNT 14.8 10^3/uL (4.0-10.5)
[2018-05-18] MEDS: CEFEPIME 2 GM/D5W RTU 2 GM/50 ML RTUPB IV SCH ×2 (05:25→17:17)
[2018-05-18] MEDS: LEVOFLOXACIN 750 MG/D5W RTU 750 MG/150 ML RTUPB IV SCH (05:26)
[2018-05-18 05:38] LABS: ANION GAP 6 (5-19); BLOOD UREA NITROGEN 39 mg/dL (7-20); CALCIUM 8.3 mg/dL (8.4-10.2); CARBON DIOXIDE 34 mmol/L (22-30); CHLORIDE 93 mmol/L (98-107); GLUCOSE 98 mg/dL (75-110); POTASSIUM 4.5 mmol/L (3.6-5.0); SODIUM 132.7 mmol/L (137-145)
[2018-05-18 05:41] LABS: ABSOLUTE LYMPHOCYTES# (MANUAL) 0.7 10^3/uL (0.5-4.7); ABSOLUTE MONOCYTES # (MANUAL) 1.3 10^3/uL (0.1-1.4); ABSOLUTE NEUTROPHILS# (MANUAL) 12.7 10^3/uL (1.7-8.2); BASOPHILS % (MANUAL) 0 % (0-2); EOSINOPHILS % (MANUAL) 0 % (0-6); LYMPHOCYTES % (MANUAL) 5 % (13-45); MONOCYTES % (MANUAL) 9 % (3-13); SEGMENTED NEUTROPHILS % (MAN) 86 % (42-78); TOTAL CELLS COUNTED 100
[2018-05-18 05:42] LABS: ANISOCYTOSIS 2+; PLATELET COMMENT DECREASED
[2018-05-18] MEDS: LORAZEPAM INJ 2 MG/1 ML VIAL IV PRN (06:09)
--- NOTE | 2018-05-18 08:20 | PDOC PROGRESS REPORT ---
Subjective Progress Note for:: 05/18/18 Subjective:: Long discussion w/ pt and family, they are ready for hospice discussion, will get community hospice involved, spoke w/ Tommy the liason who will be contacting this am. Plan d/c home likely tomorrow, today spent >35 min in discussion and coordination of care Reason For Visit: LUNG CA, POST OBST PNEUMONIA Physical Exam Vital Signs: Temp Pulse Resp BP Pulse Ox 98.2 F 108 H 20 117/65 100 05/18/18 03:30 05/18/18 03:30 05/18/18 04:00 05/18/18 03:30 05/18/18 03:30 Intake & Output 05/17/18 05/18/18 05/19/18 06:59 06:59 06:59 Intake Total 300 802 Output Total 400 300 Balance -100 502 Weight 80.8 kg 78.2 kg General appearance: PRESENT: no acute distress, well-developed, well-nourished Head exam: PRESENT: atraumatic, normocephalic Eye exam: PRESENT: conjunctiva pink, EOMI, PERRLA. ABSENT: scleral icterus Ear exam: PRESENT: normal external ear exam Mouth exam: PRESENT: moist, tongue midline Neck exam: ABSENT: carotid bruit, JVD, lymphadenopathy, thyromegaly Respiratory exam: PRESENT: clear to auscultation campos. ABSENT: rales, rhonchi, wheezes Cardiovascular exam: PRESENT: RRR. ABSENT: diastolic murmur, rubs, systolic murmur Pulses: PRESENT: normal dorsalis pedis pul Vascular exam: PRESENT: normal capillary refill GI/Abdominal exam: PRESENT: normal bowel sounds, soft. ABSENT: distended, guarding, mass, organolmegaly, rebound, tenderness Rectal exam: PRESENT: deferred Extremities exam: PRESENT: full ROM. ABSENT: calf tenderness, clubbing, pedal edema Neurological exam: PRESENT: alert, awake, oriented to person, oriented to place , oriented to time, oriented to situation, CN II-XII grossly intact. ABSENT: motor sensory deficit Psychiatric exam: PRESENT: appropriate affect, normal mood. ABSENT: homicidal ideation, suicidal ideation Skin exam: PRESENT: dry, intact, warm. ABSENT: cyanosis, rash Results Laboratory Results: 05/18/18 04:42 05/18/18 04:42 05/18/18 05/18/18 04:42 04:42 WBC 14.8 H RBC 3.81 L Hgb 10.9 L Hct 32.9 L MCV 86 MCH 28.6 MCHC 33.2 RDW 18.3 H Plt Count 134 L Seg Neutrophils % Not Reportable Lymphocytes % Not Reportable Monocytes % Not Reportable Eosinophils % Not Reportable Basophils % Not Reportable Absolute Neutrophils Not Reportable Absolute Lymphocytes Not Reportable Absolute Monocytes Not Reportable Absolute Eosinophils Not Reportable Absolute Basophils Not Reportable Sodium 132.7 L Potassium 4.5 Chloride 93 L Carbon Dioxide 34 H Anion Gap 6 BUN 39 H Creatinine 0.83 Est GFR ( Amer) > 60 Est GFR (Non-Af Amer) > 60 Glucose 98 Calcium 8.3 L Impressions: Chest X-Ray 05/17/18 00:00 IMPRESSION: No evidence for pneumothorax post thoracentesis. No other significant interval change. Thoracentesis Ultrasound 05/17/18 00:00 IMPRESSION: SUCCESSFUL THORACENTESIS USING ULTRASOUND GUIDANCE. Assessment & Plan - Diagnosis (1) Malignant pleural effusion Is this a current diagnosis for this admission?: Yes Plan: s/p thora, pt feels better, no further rx planned (2) Lung cancer Qualifiers: Laterality: right Lung location: upper lobe of lung Qualified Code(s): C34.11 - Malignant neoplasm of upper lobe, right bronchus or lung Is this a current diagnosis for this admission?: Yes Plan: no further rx, start comfort care, will have morphine started, hospice contacted and likely d/c when house ready - Time Time Spent with patient: 35 or more minutes
[2018-05-18] MEDS: TRAZODONE HCL 50 MG TABLET PO SCH ×2 (09:42→22:45)
[2018-05-18] MEDS: CHOLECALCIFEROL (D3) 1,000 UNIT TABLET PO SCH (09:43)
[2018-05-18] MEDS: MORPHINE SULFATE 10 MG/ML INJ IV PRN ×2 (09:49→18:52)
--- NOTE | 2018-05-18 12:09 | PDOC PROGRESS REPORT ---
Subjective Progress Note for:: 05/18/18 Subjective:: Patient had a discussion with Dr. Peralta about palliative care hospice and he was accepted to hospice He should be discharged tomorrow to hospice house He is doing well on BiPAP and in good spirits Reason For Visit: LUNG CA, POST OBST PNEUMONIA Physical Exam Vital Signs: Temp Pulse Resp BP Pulse Ox 97.8 F 111 H 23 H 106/44 L 99 05/18/18 11:10 05/18/18 11:10 05/18/18 08:14 05/18/18 11:10 05/18/18 11:10 Intake & Output 05/17/18 05/18/18 05/19/18 06:59 06:59 06:59 Intake Total 300 802 250 Output Total 400 300 Balance -100 502 250 Weight 178 lb 2.136 oz 172 lb 6.424 oz General appearance: PRESENT: mild distress Head exam: PRESENT: atraumatic, normocephalic Eye exam: PRESENT: conjunctiva pink, EOMI, PERRLA. ABSENT: scleral icterus Ear exam: PRESENT: normal external ear exam Mouth exam: PRESENT: moist, tongue midline Neck exam: ABSENT: carotid bruit, JVD, lymphadenopathy, thyromegaly Respiratory exam: PRESENT: decreased breath sounds, wheezes. ABSENT: accessory muscle use Cardiovascular exam: PRESENT: RRR. ABSENT: diastolic murmur, rubs, systolic murmur Pulses: PRESENT: normal dorsalis pedis pul Vascular exam: PRESENT: normal capillary refill GI/Abdominal exam: PRESENT: normal bowel sounds, soft. ABSENT: distended, guarding, mass, organolmegaly, rebound, tenderness Rectal exam: PRESENT: deferred Extremities exam: PRESENT: full ROM. ABSENT: calf tenderness, clubbing, pedal edema Neurological exam: PRESENT: alert, awake, oriented to person, oriented to place , oriented to time, oriented to situation, CN II-XII grossly intact. ABSENT: motor sensory deficit Psychiatric exam: PRESENT: appropriate affect, normal mood. ABSENT: homicidal ideation, suicidal ideation Skin exam: PRESENT: dry, intact, warm. ABSENT: cyanosis, rash Results Laboratory Results: 05/18/18 04:42 05/18/18 04:42 05/18/18 05/18/18 04:42 04:42 WBC 14.8 H RBC 3.81 L Hgb 10.9 L Hct 32.9 L MCV 86 MCH 28.6 MCHC 33.2 RDW 18.3 H Plt Count 134 L Seg Neutrophils % Not Reportable Lymphocytes % Not Reportable Monocytes % Not Reportable Eosinophils % Not Reportable Basophils % Not Reportable Absolute Neutrophils Not Reportable Absolute Lymphocytes Not Reportable Absolute Monocytes Not Reportable Absolute Eosinophils Not Reportable Absolute Basophils Not Reportable Sodium 132.7 L Potassium 4.5 Chloride 93 L Carbon Dioxide 34 H Anion Gap 6 BUN 39 H Creatinine 0.83 Est GFR ( Amer) > 60 Est GFR (Non-Af Amer) > 60 Glucose 98 Calcium 8.3 L Impressions: Chest X-Ray 05/17/18 00:00 IMPRESSION: No evidence for pneumothorax post thoracentesis. No other significant interval change. Thoracentesis Ultrasound 05/17/18 00:00 IMPRESSION: SUCCESSFUL THORACENTESIS USING ULTRASOUND GUIDANCE. Assessment & Plan - Diagnosis (1) Anxiety Is this a current diagnosis for this admission?: Yes (2) COPD exacerbation Is this a current diagnosis for this admission?: Yes (3) Lung cancer Qualifiers: Laterality: right Lung location: upper lobe of lung Qualified Code(s): C34.11 - Malignant neoplasm of upper lobe, right bronchus or lung Is this a current diagnosis for this admission?: Yes (4) Malignant pleural effusion Is this a current diagnosis for this admission?: Yes (5) Respiratory failure Qualifiers: Chronicity: acute Respiratory failure complication: hypoxia and hypercapnia Qualified Code(s): J96.01 - Acute respiratory failure with hypoxia ; J96.02 - Acute respiratory failure with hypercapnia; J96.02 - Acute respiratory failure with hypercapnia; J96.02 - Acute respiratory failure with hypercapnia Is this a current diagnosis for this admission?: Yes (6) Hypertension Qualifiers: Hypertension type: essential hypertension Qualified Code(s): I10 - Essential (primary) hypertension Is this a current diagnosis for this admission?: Yes (7) Pneumonia Qualifiers: Pneumonia type: due to unspecified organism Laterality: right Lung location: middle lobe of lung Qualified Code(s): J18.1 - Lobar pneumonia, unspecified organism Is this a current diagnosis for this admission?: Yes - Plan Summary Plan Summary: Continue current antibiotics Continue bronchodilators and steroids BiPAP as needed He is better after thoracentesis He is accepted to hospice and will be discharged to hospice house tomorrow
[2018-05-18] MEDS ORDERED: ONDANSETRON HCL INJ/PF 4 MG/2 ML SDV ONE (19:02)
[2018-05-18] MEDS ORDERED: ONDANSETRON HCL INJ/PF 4 MG/2 ML SDV IV PRN (19:34)
[2018-05-18] MEDS: ONDANSETRON HCL INJ/PF 4 MG/2 ML SDV IV PRN (19:54)
[2018-05-19] MEDS: LORAZEPAM INJ 2 MG/1 ML VIAL IV PRN (03:44)
[2018-05-19] MEDS: IPRATROPIUM/ALBUTEROL 0.5-2.5 MG/3 ML AMPUL NEB SCH ×3 (03:58→11:39)
[2018-05-19 05:07] LABS: HEMATOCRIT 34.9 % (37.9-51.0); HEMOGLOBIN 11.2 g/dL (13.5-17.0); MEAN CORPUSCULAR HEMOGLOBIN 28.3 pg (27.0-33.4); MEAN CORPUSCULAR HGB CONC 32.2 g/dL (32.0-36.0); MEAN CORPUSCULAR VOLUME 88 fl (80-97); PLATELET COUNT 120 10^3/uL (150-450); RED BLOOD COUNT 3.98 10^6/uL (4.35-5.55); RED CELL DISTRIBUTION WIDTH 17.9 % (11.5-14.0); WHITE BLOOD COUNT 14.4 10^3/uL (4.0-10.5)
[2018-05-19 05:16] LABS: ANION GAP 6 (5-19); BLOOD UREA NITROGEN 41 mg/dL (7-20); CALCIUM 8.5 mg/dL (8.4-10.2); CARBON DIOXIDE 34 mmol/L (22-30); CHLORIDE 91 mmol/L (98-107); GLUCOSE 91 mg/dL (75-110); POTASSIUM 5.1 mmol/L (3.6-5.0); SODIUM 130.6 mmol/L (137-145)
[2018-05-19 05:38] LABS: ABSOLUTE LYMPHOCYTES# (MANUAL) 0.7 10^3/uL (0.5-4.7); ABSOLUTE MONOCYTES # (MANUAL) 0.1 10^3/uL (0.1-1.4); ABSOLUTE NEUTROPHILS# (MANUAL) 13.5 10^3/uL (1.7-8.2); BASOPHILS % (MANUAL) 0 % (0-2); EOSINOPHILS % (MANUAL) 0 % (0-6); LYMPHOCYTES % (MANUAL) 5 % (13-45); MONOCYTES % (MANUAL) 1 % (3-13); SEGMENTED NEUTROPHILS % (MAN) 94 % (42-78); TOTAL CELLS COUNTED 100
[2018-05-19 05:39] LABS: PLATELET COMMENT ADEQUATE; POLYCHROMASIA 1+
[2018-05-19] MEDS: LEVOFLOXACIN 750 MG/D5W RTU 750 MG/150 ML RTUPB IV SCH (06:16)
[2018-05-19] MEDS: CEFEPIME 2 GM/D5W RTU 2 GM/50 ML RTUPB IV SCH (06:16)
[2018-05-19] MEDS: ONDANSETRON HCL INJ/PF 4 MG/2 ML SDV IV PRN (08:49)
[2018-05-19] MEDS: MORPHINE SULFATE 10 MG/ML INJ IV PRN (09:10)
[2018-05-19] MEDS: CHOLECALCIFEROL (D3) 1,000 UNIT TABLET PO SCH (09:13)
[2018-05-19] MEDS: TRAZODONE HCL 50 MG TABLET PO SCH (09:13)
--- NOTE | 2018-05-19 09:27 | PDOC DISCHARGE SUMMARY ---
General - Admit/Disc Date/PCP Admission Date/Primary Care Provider: 05/16/18 05:34 JULITO MCNEILL MD Discharge Date: 05/19/18 - Discharge Diagnosis (1) Anxiety Is this a current diagnosis for this admission?: Yes (2) COPD exacerbation Is this a current diagnosis for this admission?: Yes (3) Lung cancer Is this a current diagnosis for this admission?: Yes (4) Malignant pleural effusion Is this a current diagnosis for this admission?: Yes (5) Respiratory failure Is this a current diagnosis for this admission?: Yes (6) Hypertension Is this a current diagnosis for this admission?: Yes (7) Pneumonia Is this a current diagnosis for this admission?: Yes - Additional Information Resuscitation Status: Do Not Resuscitate Discharge Diet: As Tolerated Discharge Activity: Activity As Tolerated Home Medications: Acetylcysteine [Mucomist 10% Neb 400 mg/4 mL Vial] 400 mg NEB Q6 05/16/18 Albuterol Sulfate [Ventolin Hfa] 1 puff IH QIDP PRN 05/16/18 Alfuzosin HCl [Alfuzosin HCl ER] 10 mg PO DAILY 05/16/18 Alprazolam [Xanax 0.5 mg Tablet] 0.5 mg PO BIDP PRN 05/16/18 Cetirizine HCl [Zyrtec 10 mg Tablet] 10 mg PO DAILYP PRN 05/16/18 Cholecalciferol (Vitamin D3) [Vitamin D3 2000 unit Tablet] 2,000 unit PO DAILY 05/16/18 Fluticasone Propionate [Flonase Nasal [place] 50 Mcg/[place] 16 gm] 1 spray NASL DAILYP PRN 05/16/18 Folic Acid [Folvite 1 mg Tablet] 1 mg PO DAILY 05/16/18 Ipratropium/Albuterol Sulfate [Iprat-Albut 0.5-3(2.5) mg/3 ml] 1 vial IH Q6 Multivitamin [One-A-Day Essential] 1 each PO DAILY 05/16/18 Omeprazole 40 mg PO DAILY 05/16/18 Ondansetron HCl [Zofran 8 mg Tablet] 8 mg PO Q8HP PRN 05/16/18 Promethazine HCl [Phenergan 25 mg Tablet] 25 mg PO Q6HP PRN 05/16/18 Sodium Chloride [Saline Nasal [place]] 1 spray NS DAILYP PRN 05/16/18 History of Present Illness History of Present Illness: PAULINE SMITH is a 68 year old male with a past medical history of oxygen dependent COPD, stage IV lung cancer, right upper lobe atelectasis, adrenal mass , on second line therapy with Keytruda and recent pneumonia. Patient discharged 11 days ago for postobstructive pneumonia, completed course of antibiotics and states had been doing better though developed air hunger and anxiety he was prescribed a benzodiazepine. In the emergency room he is found to have acute on chronic respiratory failure with a PCO2 of 70 and a pulse ox of 85 on 2 L nasal cannula. He started on BiPAP, empiric antibiotics and referred to the hospitalist for admission. He admits nonproductive cough, no rhinorrhea no sore throat no uncontrolled GERD. He has been evaluated for endobronchial stent but was declined. Patient's CODE STATUS is DNR Hospital Course Hospital Course: Patient was admitted and started on empiric antibiotics. He was also started on bronchodilators and steroids. He received BiPAP. He underwent thoracentesis was 800 mL drained. Patient continued to do poorly but at this moment stable. Patient and his family discussed palliative care and hospice with oncology. Patient was accepted to hospice and will go home today with hospice care. Physical Exam Vital Signs: Temp Pulse Resp BP Pulse Ox 98.6 F 111 H 27 H 120/55 L 95 05/19/18 07:49 05/19/18 07:49 05/19/18 07:49 05/19/18 07:49 05/19/18 07:49 Intake & Output 05/18/18 05/19/18 05/20/18 06:59 06:59 06:59 Intake Total 802 1398 Output Total 300 Balance 502 1398 Weight 172 lb 6.424 oz 171 lb 1.259 oz General appearance: PRESENT: no acute distress Head exam: PRESENT: atraumatic, normocephalic Results Laboratory Results: 05/19/18 04:27 05/19/18 04:27 05/19/18 05/19/18 04:27 04:27 WBC 14.4 H RBC 3.98 L Hgb 11.2 L Hct 34.9 L MCV 88 MCH 28.3 MCHC 32.2 RDW 17.9 H Plt Count 120 L Seg Neutrophils % Not Reportable Lymphocytes % Not Reportable Monocytes % Not Reportable Eosinophils % Not Reportable Basophils % Not Reportable Absolute Neutrophils Not Reportable Absolute Lymphocytes Not Reportable Absolute Monocytes Not Reportable Absolute Eosinophils Not Reportable Absolute Basophils Not Reportable Sodium 130.6 L Potassium 5.1 H Chloride 91 L Carbon Dioxide 34 H Anion Gap 6 BUN 41 H Creatinine 0.79 Est GFR ( Amer) > 60 Est GFR (Non-Af Amer) > 60 Glucose 91 Calcium 8.5 Impressions: Chest X-Ray 05/17/18 00:00 IMPRESSION: No evidence for pneumothorax post thoracentesis. No other significant interval change. Thoracentesis Ultrasound 05/17/18 00:00 IMPRESSION: SUCCESSFUL THORACENTESIS USING ULTRASOUND GUIDANCE. Qualifiers - * PATIENT BEING DISCHARGED WITH ANY OF THE FOLLOWING DIAGNOSIS: No
[2018-05-19 09:32] VITALS: BP 127/56
== END 2018-05-19 11:57 | disposition hospice, home (50) | DRG 180 ==
LOC: ER 01:41 → EH 05:34 → 3N 11:44
PROVIDERS: ADMIT Internal Medicine; ATTEND Internal Medicine
PROC: 0W9B3ZZ Drainage of Left Pleural Cavity, Percutaneous Approach (ICD-10-PCS; principal; 2018-05-16)
PROC: 5A09357 Assistance with Respiratory Ventilation, Less than 24 Consecutive Hours, Continuous Positive Airway Pressure (ICD-10-PCS; 2018-05-16)
DX: C34.11 Malignant neoplasm of upper lobe, right bronchus or lung (principal); J96.01 Acute respiratory failure with hypoxia; J96.02 Acute respiratory failure with hypercapnia; J18.1 Lobar pneumonia, unspecified organism; J44.1 Chronic obstructive pulmonary disease with (acute) exacerbation; J91.0 Malignant pleural effusion; J44.0 Chronic obstructive pulmonary disease with (acute) lower respiratory infection; Z99.81 Dependence on supplemental oxygen; Z51.5 Encounter for palliative care; Z66 Do not resuscitate; I10 Essential (primary) hypertension; E11.9 Type 2 diabetes mellitus without complications; K21.9 Gastro-esophageal reflux disease without esophagitis; K44.9 Diaphragmatic hernia without obstruction or gangrene; F41.9 Anxiety disorder, unspecified; Z87.891 Personal history of nicotine dependence; Z88.0 Allergy status to penicillin
CPT/HCPCS: 32555; 36415; 71045; 71275; 80048; 80053; 82803; 82962; 83735; 83880; 84100; 84484; 85025; 87040; 87070; 87077; 87186; 87205; 93005; 93010; 94640; 94660; 96365; 96375; 96376; 99291; J0692; J1644; J1956; J2060; J2270; J2405; J2930; J3475; J3490; J7620